=== PATIENT | female | born 1995 | race Caucasian/White ===

== ENCOUNTER → 2017-09-13 11:30 | Outpatient (CLI) | payer OTHER, SELFPAY ==
[2017-09-13 12:30] LABS: Hemoglobin A1c 7.7 % (4.2-6.3)
[2017-09-13 12:32] LABS: Microalbumin,Random Urine 5.7 mg/L (NO RANGE EST.)
[2017-09-13 12:49] LABS: ALB/GLOB Ratio 0.9 RATIO (0.9-2.4); AST(SGOT) 11 U/L (15-37); Alanine Aminotransfer ALT/SGPT 21 U/L (13-56); Albumin, Serum 3.3 g/dL (3.2-5.0); Alkaline Phosphatase 79 U/L (45-117); Anion Gap 6 (5-15); BUN 14 mg/dL (7-18); BUN/Creat Ratio 20.1 RATIO (10-20); Calcium,Total 8.4 mg/dL (8.5-10.1); Chloride 103 mmol/L (98-107); EST Glomerular Filtration Rate 110 mL/min (>60); Est Glom Filt Rate - Afr Amer 133 mL/min (>60); Globulin 3.7 g/dL (2.2-4.2); Glucose 218 mg/dL (74-106); Potassium 4.3 mmol/L (3.5-5.1); Sodium Level 135 mmol/L (136-145)
== END ==
PROVIDERS: Family Provider Internal Medicine; PCP Internal Medicine; Visit Provider Nurse Practitioner
DX: E10.9 Type 1 diabetes mellitus without complications (principal)
CPT/HCPCS: 36415; 80053; 82043; 82570; 83036

== ENCOUNTER → 2017-12-17 10:40 | Outpatient (CLI) | payer OTHER, SELFPAY ==
[2017-12-17 11:31] LABS: Hemoglobin A1c 7.7 % (4.2-6.3)
[2017-12-17 11:32] LABS: ALB/GLOB Ratio 0.9 RATIO (0.9-2.4); AST(SGOT) 12 U/L (15-37); Alanine Aminotransfer ALT/SGPT 19 U/L (13-56); Albumin, Serum 3.5 g/dL (3.2-5.0); Alkaline Phosphatase 100 U/L (45-117); Anion Gap 7 (5-15); BUN 9 mg/dL (7-18); BUN/Creat Ratio 12.3 RATIO (10-20); Calcium,Total 8.6 mg/dL (8.5-10.1); Chloride 104 mmol/L (98-107); Creatinine, Serum 0.73 mg/dL (0.55-1.02); EST Glomerular Filtration Rate 103 mL/min (>60); Est Glom Filt Rate - Afr Amer 125 mL/min (>60); Globulin 3.7 g/dL (2.2-4.2); Glucose 284 mg/dL (74-106); Potassium 4.2 mmol/L (3.5-5.1); Protein, Total 7.2 g/dL (6.4-8.2); Sodium Level 138 mmol/L (136-145)
== END ==
PROVIDERS: Family Provider Internal Medicine; PCP Internal Medicine; Visit Provider Nurse Practitioner
DX: E10.69 Type 1 diabetes mellitus with other specified complication (principal); E78.5 Hyperlipidemia, unspecified
CPT/HCPCS: 36415; 80053; 83036

== ENCOUNTER → 2018-03-14 09:37 | Outpatient (CLI) | payer OTHER, SELFPAY ==
[2018-03-14 10:37] LABS: Hemoglobin A1c 8.3 % (4.2-6.3)
[2018-03-14 10:43] LABS: Microalbumin,Random Urine < 5.0 mg/L (NO RANGE EST.)
[2018-03-14 10:47] LABS: ALB/GLOB Ratio 0.9 RATIO (0.9-2.4); AST(SGOT) 12 U/L (15-37); Alanine Aminotransfer ALT/SGPT 15 U/L (13-56); Albumin, Serum 3.4 g/dL (3.2-5.0); Alkaline Phosphatase 91 U/L (45-117); Anion Gap 8 (5-15); BUN 7 mg/dL (7-18); BUN/Creat Ratio 11.1 RATIO (10-20); Calcium,Total 8.4 mg/dL (8.5-10.1); Chloride 106 mmol/L (98-107); Cholesterol 167 mg/dL (200); Creatinine, Serum 0.63 mg/dL (0.55-1.02); EST Glomerular Filtration Rate 123 mL/min (>60); Est Glom Filt Rate - Afr Amer 148 mL/min (>60); Globulin 3.8 g/dL (2.2-4.2); Glucose 208 mg/dL (74-106); High Density Lipoprotein 45 mg/dL; Potassium 4.1 mmol/L (3.5-5.1); Protein, Total 7.2 g/dL (6.4-8.2); Sodium Level 137 mmol/L (136-145); Triglycerides 43 mg/dL; Very Low Density Lipoprotein 9 mg/dL (5-40)
== END ==
PROVIDERS: Family Provider Internal Medicine; PCP Internal Medicine; Visit Provider Nurse Practitioner
DX: E10.65 Type 1 diabetes mellitus with hyperglycemia (principal)
CPT/HCPCS: 36415; 80053; 80061; 82043; 82570; 83036

== ENCOUNTER → 2018-07-03 08:15 | Outpatient (CLI) | payer BC, SELFPAY ==
[2018-03-18 08:37] VITALS: BMI 41.5
[2018-07-03 09:42] LABS: Microalbumin,Random Urine < 5.0 mg/L (NO RANGE EST.)
[2018-07-03 10:08] LABS: Hemoglobin A1c 8.3 % (4.2-6.3)
[2018-07-03 10:59] LABS: AST(SGOT) 8 U/L (15-37); Alanine Aminotransfer ALT/SGPT 18 U/L (13-56); Albumin, Serum 3.7 g/dL (3.2-5.0); Alkaline Phosphatase 95 U/L (45-117); Anion Gap 11 (5-15); BUN 17 mg/dL (7-18); BUN/Creat Ratio 25.9 RATIO (10-20); Calcium,Total 8.4 mg/dL (8.5-10.1); Chloride 106 mmol/L (98-107); Cholesterol 173 mg/dL (200); Creatinine, Serum 0.66 mg/dL (0.55-1.02); EST Glomerular Filtration Rate 116 mL/min (>60); Est Glom Filt Rate - Afr Amer 141 mL/min (>60); Globulin 3.8 g/dL (2.2-4.2); Glucose 91 mg/dL (74-106); High Density Lipoprotein 52 mg/dL; Potassium 3.7 mmol/L (3.5-5.1); Protein, Total 7.5 g/dL (6.4-8.2); Sodium Level 138 mmol/L (136-145); Thyroid Stim Hormone (TSH) 2.52 uIU/mL (0.358-3.74); Triglycerides 41 mg/dL; Very Low Density Lipoprotein 8 mg/dL (5-40)
== END ==
PROVIDERS: Family Provider Internal Medicine; PCP Internal Medicine; Referring Provider Nurse Practitioner; Visit Provider Nurse Practitioner
DX: E10.69 Type 1 diabetes mellitus with other specified complication (principal); E78.5 Hyperlipidemia, unspecified
CPT/HCPCS: 36415; 80053; 80061; 82043; 83036; 84443

== ENCOUNTER → 2018-07-28 18:09 | Outpatient (CLI) | payer BC, SELFPAY ==
[2018-07-28 15:48] VITALS: BMI 41.5
[2018-07-31 13:30] LABS: HPV Reflexed? NOT INDICATED
== END ==
PROVIDERS: Family Provider Internal Medicine; PCP Internal Medicine; Referring Provider Nurse Practitioner Women's Health; Visit Provider Nurse Practitioner Women's Health
DX: Z12.4 Encounter for screening for malignant neoplasm of cervix (principal)
CPT/HCPCS: 87624; 88175; G0145

== ENCOUNTER → 2021-01-16 09:11 | Outpatient (CLI) | payer OTHER, SELFPAY ==
[2021-01-16 08:47] VITALS: BMI 43.7
[2021-01-16 12:48] LABS: Thyroid Stim Hormone (TSH) 1.34 uIU/mL (0.358-3.74)
[2021-01-17 16:52] LABS: Thyroid Peroxidase AB < 8 IU/mL (0-34)
== END ==
PROVIDERS: PCP Internal Medicine; Referring Provider Internal Medicine Endocrinology, Diabetes & Metabolism; Visit Provider Internal Medicine Endocrinology, Diabetes & Metabolism
DX: E04.9 Nontoxic goiter, unspecified (principal)
CPT/HCPCS: 36415; 84439; 84443; 86376

== ENCOUNTER → 2022-04-18 | Outpatient (CLI) | payer OTHER, SELFPAY ==
[2022-05-07 18:58] LABS: HPV Reflexed? NOT INDICATED
== END | disposition home or self-care (01) ==
PROVIDERS: PCP Internal Medicine; Visit Provider Nurse Practitioner Women's Health
DX: Z12.4 Encounter for screening for malignant neoplasm of cervix (principal)
CPT/HCPCS: 88175; G0145

== ENCOUNTER → 2022-06-06 | Outpatient (CLI) | payer OTHER, SELFPAY ==
--- NOTE | 2022-06-06 12:00 | EKG12_ITS ---
Test Reason : PRE-OP Blood Pressure : / mmHG Vent. Rate : 072 BPM Atrial Rate : 072 BPM P-R Int : 122 ms QRS Dur : 072 ms QT Int : 386 ms P-R-T Axes : 023 -12 033 degrees QTc Int : 422 ms Normal sinus rhythm with sinus arrhythmia Low voltage QRS Poor R wave progression Confirmed by LEOBARDO WARE, MARTA ([id number]), editor school photograph KATINA BETANCUR ([id number]) on 06/07/2022 11:22:05 AM Referred By: Korin Mckeon Confirmed By:MARTA BOOTH MD
== END | disposition home or self-care (01) ==
LOC: PSN 11:59
PROVIDERS: PCP Internal Medicine; Referring Provider Obstetrics & Gynecology; Visit Provider Obstetrics & Gynecology
DX: E11.9 Type 2 diabetes mellitus without complications (principal); E78.5 Hyperlipidemia, unspecified
CPT/HCPCS: 93005

== ENCOUNTER → 2022-08-03 | Outpatient (CLI) | payer OTHER, SELFPAY ==
[2022-08-03 14:56] LABS: Anion Gap 5 (5-15); BUN 13 mg/dL (7-18); BUN/Creat Ratio 14.6 RATIO (10-20); Calcium,Total 8.9 mg/dL (8.5-10.1); Chloride 113 mmol/L (98-107); Creatinine, Serum 0.89 mg/dL (0.55-1.02); EST Glomerular Filtration Rate 79 mL/min (>60); Est Glom Filt Rate - Afr Amer 96 mL/min (>60); Glucose 148 mg/dL (74-106); Sodium Level 141 mmol/L (136-145)
== END | disposition home or self-care (01) ==
LOC: LAB 14:01
PROVIDERS: PCP Internal Medicine; Referring Provider Obstetrics & Gynecology; Visit Provider Obstetrics & Gynecology
DX: E66.8 Other obesity (principal); E11.9 Type 2 diabetes mellitus without complications
CPT/HCPCS: 36415; 80048

== ENCOUNTER 2022-09-03 07:33 | Outpatient (CLI) | payer OTHER, SELFPAY ==
[2022-09-03 09:55] LABS: Microalbumin,Random Urine 9.6 mg/L (NO RANGE EST.); Microalbumin:Creatinine Ratio 3.6 mg/g CRE (<30 mg/g CRE)
[2022-09-03 10:02] LABS: Vitamin D,25 Hydroxy 33.6 ng/mL
[2022-09-03 10:17] LABS: ALB/GLOB Ratio 1.1 RATIO (0.9-2.4); AST(SGOT) 13 U/L (15-37); Alanine Aminotransfer ALT/SGPT 20 U/L (13-56); Alkaline Phosphatase 85 U/L (45-117); Anion Gap 10 (5-15); BUN 19 mg/dL (7-18); BUN/Creat Ratio 24.9 RATIO (10-20); Chloride 107 mmol/L (98-107); Cholesterol 140 mg/dL (200); Creatinine, Serum 0.76 mg/dL (0.55-1.02); EST Glomerular Filtration Rate 95 mL/min (>60); Est Glom Filt Rate - Afr Amer 115 mL/min (>60); Globulin 3.7 g/dL (2.2-4.2); Glucose 121 mg/dL (74-106); High Density Lipoprotein 39 mg/dL; Potassium 3.4 mmol/L (3.5-5.1); Protein, Total 7.7 g/dL (6.4-8.2); Sodium Level 138 mmol/L (136-145); Thyroid Stim Hormone (TSH) 2.96 uIU/mL (0.358-3.74); Triglycerides 57 mg/dL; Very Low Density Lipoprotein 11 mg/dL (5-40)
== END 2022-09-03 23:59 | disposition home or self-care (01) ==
LOC: LAB 07:35
PROVIDERS: PCP Internal Medicine; Referring Provider Internal Medicine Endocrinology, Diabetes & Metabolism; Visit Provider Internal Medicine Endocrinology, Diabetes & Metabolism
DX: E10.9 Type 1 diabetes mellitus without complications (principal); Z68.41 Body mass index [BMI] 40.0-44.9, adult; Z96.41 Presence of insulin pump (external) (internal); E78.2 Mixed hyperlipidemia; I10 Essential (primary) hypertension; E04.9 Nontoxic goiter, unspecified; E55.9 Vitamin D deficiency, unspecified; Z71.3 Dietary counseling and surveillance; E66.8 Other obesity
CPT/HCPCS: 36415; 80053; 80061; 82043; 82306; 82570; 84443; 97802

== ENCOUNTER 2022-09-03 08:03 | Outpatient (RCR) | payer OTHER, SELFPAY | END 2022-09-21 23:59 | LOC: NS 08:03 | PROVIDERS: PCP Internal Medicine; Visit Provider Obstetrics & Gynecology | DX: Z71.3 Dietary counseling and surveillance (principal); E66.8 Other obesity; E10.9 Type 1 diabetes mellitus without complications; Z68.41 Body mass index [BMI] 40.0-44.9, adult | CPT/HCPCS: 97802 ==

== ENCOUNTER → 2022-12-10 | Outpatient (CLI) | payer OTHER, SELFPAY ==
[2022-12-10 11:37] LABS: Anion Gap 6 (5-15); BUN 13 mg/dL (7-18); BUN/Creat Ratio 15.4 RATIO (10-20); Calcium,Total 9.2 mg/dL (8.5-10.1); Chloride 109 mmol/L (98-107); Creatinine, Serum 0.84 mg/dL (0.55-1.02); EST Glomerular Filtration Rate 84 mL/min (>60); Est Glom Filt Rate - Afr Amer 102 mL/min (>60); Glucose 191 mg/dL (74-106); Potassium 4.2 mmol/L (3.5-5.1); Sodium Level 138 mmol/L (136-145)
== END | disposition home or self-care (01) ==
LOC: PAVLAB 10:56
PROVIDERS: PCP Internal Medicine; Referring Provider Obstetrics & Gynecology; Visit Provider Obstetrics & Gynecology
DX: Z51.81 Encounter for therapeutic drug level monitoring (principal)
CPT/HCPCS: 36415; 80048

== ENCOUNTER → 2023-01-28 | Outpatient (CLI) | payer OTHER, SELFPAY ==
[2023-01-28 11:32] LABS: Anion Gap 7 (5-15); BUN 22 mg/dL (7-18); BUN/Creat Ratio 25.2 RATIO (10-20); Chloride 107 mmol/L (98-107); Creatinine, Serum 0.87 mg/dL (0.55-1.02); EST Glomerular Filtration Rate 81 mL/min (>60); Est Glom Filt Rate - Afr Amer 98 mL/min (>60); Glucose 97 mg/dL (74-106); Potassium 3.9 mmol/L (3.5-5.1); Sodium Level 138 mmol/L (136-145)
== END | disposition home or self-care (01) ==
LOC: PAVLAB 10:47
PROVIDERS: PCP Internal Medicine; Visit Provider Obstetrics & Gynecology
DX: Z51.81 Encounter for therapeutic drug level monitoring (principal)
CPT/HCPCS: 36415; 80048

== ENCOUNTER → 2023-12-30 | Outpatient (CLI) | payer OTHER, SELFPAY ==
[2023-12-30 08:13] LABS: Microalbumin,Random Urine 7.5 mg/L (NO RANGE EST.); Microalbumin:Creatinine Ratio 2.5 mg/g CRE (<30 mg/g CRE)
[2023-12-30 08:54] LABS: Vitamin D,25 Hydroxy 24.9 ng/mL
[2023-12-30 09:00] LABS: ALB/GLOB Ratio 1.2 RATIO (0.9-2.4); AST(SGOT) 18 U/L (15-37); Alanine Aminotransfer ALT/SGPT 16 U/L (13-56); Albumin, Serum 3.8 g/dL (3.2-5.0); Alkaline Phosphatase 83 U/L (45-117); Anion Gap 5 (5-15); BUN 12 mg/dL (7-18); BUN/Creat Ratio 14.3 RATIO (10-20); Calcium,Total 8.9 mg/dL (8.5-10.1); Chloride 110 mmol/L (98-107); Cholesterol 130 mg/dL (200); Creatinine, Serum 0.84 mg/dL (0.55-1.02); EST Glomerular Filtration Rate 84 mL/min (>60); Est Glom Filt Rate - Afr Amer 102 mL/min (>60); Globulin 3.3 g/dL (2.2-4.2); Glucose 131 mg/dL (74-106); High Density Lipoprotein 55 mg/dL; Potassium 3.8 mmol/L (3.5-5.1); Protein, Total 7.1 g/dL (6.4-8.2); Sodium Level 139 mmol/L (136-145); T4 Free Direct 1.08 ng/dL (0.76-1.46); Thyroid Stim Hormone (TSH) 2.61 uIU/mL (0.358-3.74); Triglycerides 37 mg/dL; Very Low Density Lipoprotein 7 mg/dL (5-40)
== END | disposition home or self-care (01) ==
LOC: LAB 07:06
PROVIDERS: PCP Internal Medicine; Referring Provider Internal Medicine Endocrinology, Diabetes & Metabolism; Visit Provider Internal Medicine Endocrinology, Diabetes & Metabolism
DX: E10.69 Type 1 diabetes mellitus with other specified complication (principal); I10 Essential (primary) hypertension; E04.9 Nontoxic goiter, unspecified; E78.5 Hyperlipidemia, unspecified; E55.9 Vitamin D deficiency, unspecified
CPT/HCPCS: 36415; 80053; 80061; 82043; 82306; 82570; 84439; 84443

== ENCOUNTER → 2024-04-27 | Outpatient (CLI) | payer OTHER, SELFPAY | END | disposition home or self-care (01) | LOC: LABSPEC 14:43 | PROVIDERS: PCP Internal Medicine; Referring Provider Nurse Practitioner Family; Visit Provider Nurse Practitioner Family | DX: N89.8 Other specified noninflammatory disorders of vagina (principal) | CPT/HCPCS: 87070; 87205 ==

== ENCOUNTER → 2025-01-13 | Outpatient (CLI) | payer OTHER, SELFPAY ==
[2025-01-13 11:48] LABS: Creatinine, Urine (random) 32.90 mg/dL (28.00-217.00); Microalbumin,Random Urine < 12.0 mg/L (<20 mg/L)
[2025-01-13 11:57] LABS: AST(SGOT) 15 U/L (<=31); Alanine Aminotransfer ALT/SGPT 12 U/L (<=34); Albumin, Serum 4.2 g/dL (3.5-5.0); Alkaline Phosphatase 94 U/L (35-104); Anion Gap 10 (5-15); BUN 10 mg/dL (4-19); BUN/Creat Ratio 14.7 RATIO (10-20); Calcium,Total 9.3 mg/dL (7.6-11.0); Carbon Dioxide 23.1 mmol/L (21.0-32.0); Chloride 106 mmol/L (98-108); Cholesterol 145 mg/dL (<=200); Globulin 2.7 g/dL (2.2-4.2); Glucose 108 mg/dL (70-99); Low Density Lipoprotein Calc. 73 mg/dL; Potassium 3.8 mmol/L (3.3-5.1); Triglycerides 34 mg/dL; Very Low Density Lipoprotein 7 mg/dL (5-40); cholesterol:hdl ratio screen 2.23
--- OUTSIDE RECORDS SUMMARY | 2025-01-13 19:14 | XMS RPT_ITS | CCD ---
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 [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 Resolved: 04-11-2016 04-11-2016 Chronic Other circulatory disease (1 source) Other specified symptoms and signs involving the circulatory and respiratory systems; Translations: [Diminished pulses in lower extremity] Onset: 10-06-2024 Episodic Other connective tissue disease (2 sources) Pain in right foot; Translations: [Pain in right foot] Onset: 04-14-2019 Episodic Other connective tissue disease (15 sources) Plantar fascial fibromatosis; Translations: [Plantar fascial fibromatosis] Onset: 04-24-2006 Resolved: 04-11-2016 04-11-2016 Episodic Other female genital disorders (1 source) Other specified noninflammatory disorders of vagina; Translations: [Other specified noninflammatory disorders of vagina] Onset: 05-15-2024 Episodic Other nutritional; endocrine; and metabolic disorders (20 sources) Body mass index 40+ - severely obese; Translations: [Morbid (severe) obesity due to excess calories] Resolved: 11-24-2024 10-03-2014 Chronic Other skin disorders (1 source) Corns and callosities; Translations: [Callus] Onset: 08-25-2024 Episodic Sprains and strains (15 sources) Sprain of foot; Translations: [Unspecified sprain of unspecified foot, initial encounter] Onset: 06-04-2006 Resolved: 04-11-2016 04-11-2016 Episodic Unclassified (5 sources) diabetes type without complications, detention isnulin use 04-06-2022 Results Test Name Value Interpretation Reference Range Facility [facility] 01-05-2025 CNCO Letter Text Normal [facility] CNOVon 01-05-2025 CNOV Office Visit (PODIWS) PAULY WHITEHEAD ([id number]) 1995 F Date Time Provider Department 01/05/25 9:45 AM ELIE CARVAJAL PODIWS During your visit today, we recorded the following information about you: Jocelin Sandy LPN 01/07/2025 7:56 AM Signed AMB ROOMING INTAKE FLOWSHEET DATA Patient presents with: Right Foot - Established Patient, Follow Up, Post Op 25 days s/p Derotational arthroplasty, right fifth toe with possible soft-tissue release if necessary ANGELY Knight Matthew 01/05/2025 10:12 AM Addendum Your incision is now healed. At this time, I am ok with you showering. After shower, dry foot thoroughly and apply small amount of moisturizing lotion on feet. Ok to transition into wider tennis shoe, ie hoka, ramirez or asics. You no longer need the steres strips. If the toe were to become dry and crack, you can always reinforce at that time. Will update paperwork to allow return to work on February 05 Call if any questions arise. Can follow-up in 2 weeks to see how you are doing FAVIOLA Parkinson Matthew 01/07/2025 7:56 AM Signed FOLLOW UP PODIATRIC OFFICE VISIT Chief Complaint: This 29 year old who presents for follow up:right fifth toe derotational arthroplasty Patient presents to clinic for follow-up right 5th toe derotational arthroplasty She is doing very well. Has been applying steres to the fifth toe. Feels great. Feels like she is progressing very well. PAIN EVALUATION No data found in the last 1 encounters. Hemoglobin A1C Date Value Ref Range Status 02/11/2023 6.4 (H) 4.3 - 5.6 % Final Comment: [place] [employer] guidelines indicate that patients with HgbA1c in the range 5.7-6.4% are at increased risk for development of diabetes, and intervention by lifestyle modification may be beneficial. HgbA1c greater or equal to 6.5% is considered diagnostic of diabetes. PCP: Fe Tolentino MD PAST MEDICAL HISTORY Diagnosis Date Morbid obesity with BMI of 40.0-44.9, adult (HCC) PMH - PAST MEDICAL HISTORY OF menarche at age 8 years Seizure disorder (HCC) none since childhood after treated with Tegretol for 2 years Type 1 diabetes mellitus 07/22/2005 Type (06/24/1999): dx type 1 diabetes. Varicella without mention of complication age 3 or 4 years Current Outpatient Medications Medication Sig topiramate (TOPAMAX) 50 mg tablet Take 50 mg by mouth once daily. Will be taking for 1 week while holding Qsymia per weight mgmt doctor, Dr. Mckeon calcium carbonate 600 mg-cholecalciferol 400 units (CALCIUM 600 + D) 600 mg-10 mcg (400 unit) tab Take 1 tablet by mouth two times a day. QSYMIA 15-92 mg 24 Hr Capsule TAKE ONE CAPSULE BY MOUTH DAILY DIRECTED insulin lispro (HUMALOG) 100 unit/mL injection See Instructions, 120 units daily in insulin pump, # 110 mL, 3 Refill(s), Pharmacy: [facility] atorvastatin (LIPITOR) 20 mg tablet Take 20 mg by mouth five times a week. Takes Saturday-Saturday only empagliflozin (JARDIANCE) 25 mg tablet Take 25 mg by mouth daily with breakfast. insulin needles, DISPOSABLE, (PEN NEEDLE) 31 gauge x 5/16" ndle Use as directed 3-4 times daily with injections glucagon, human recombinant, (GLUCAGON EMERGENCY KIT, HUMAN,) 1 mg injection Inject 1 mg subcutaneously as directed. Dx: E10.9, Uses daily insulin Cholecalciferol, Vitamin D3, 2,000 unit cap Take 2 tablets by mouth once daily. Insulin Sunburst, Disposable, (BD ULTRAFINE III MINI PEN) 31 x 3/16 " Ndle 1 Each three times daily. USE WITH INSULIN PENS syringe w-ndl, disp,insul,1ml(BD INSULIN SYRINGE ULT-FINE II 1 ML 31 X 5/16") Use as directed. No current facility-administere d medications for this visit. ALLERGIES Allergen Reactions [place] Hives PAST SURGICAL HISTORY Procedure Laterality Date PAST SURGICAL HISTORY OF Right 2019 right foot x 2 (fracture) TYMPANOSTOMY LOCAL/TOPICAL ANESTHESIA Physical Exam: OBJECTIVE: Constitutional: Pt is a well developed 29 year old female who is alert, oriented, cooperative and in no apparent distress. Eyes: Following during examination. No redness or drainage. Respiratory: RR normal and nonlabored. Even breathing. No evidence of distress. Psychology: Patient is engaged during conversation. Normal affect and mood. Does not appear depressed or anxious. NVSI unchanged from previous visit. Dermatological: Surgical incision to right 5th toe is now healed. No local signs of infection No recurrent callus Musculoskeletal/Orth opaedic: Patient has no pain to palpation of right foot Right 5th toe appears rectus No calf pain noted ASSESSMENT: (Z98.890) Post-operative state (primary encounter diagnosis) (M20.41) Hammertoe of right foot PLAN: Patient is s/p derotational arthroplasty of the right 5th toe. The toe incision is now healed. Can go without dressing I will have (more content not included)... Normal [facility] CNOVon 12-29-2024 CNOV Office Visit (PODIWS) PAULY WHITEHEAD ([id number]) 1995 F Date Time Provider Department 12/29/24 9:15 AM ELIE CARVAJAL PODIWS During your visit today, we recorded the following information about you: Jocelin Sandy LPN 12/30/2024 7:43 AM Signed AMB ROOMING INTAKE FLOWSHEET DATA Patient presents with: Right Foot - Established Patient, Follow Up, Pain, Post Op Patient presents to office for s/p Derotational arthroplasty, right fifth toe with possible soft-tissue release if necessary. No pain unless foot swells after over doing it. ANGELY Knight Matthew 12/29/2024 9:37 AM Signed You are 18 days post-op from derotational arthroplasty of the right 5th toe. Suture was removed today. Small degree of skin thickening was debrided. You have a very superficial, noninfected wound that was dressed with steres strips. Leave these on for one more week. Will plan to remove next week. If the steres should happen to fall off, you can reapply by applying skin prep to the periphery of the wound and apply two strips across the surgical incision. Keep this dry until healed, likely by next week Continue to keep guaze on the toe as currently doing Continue with post-op shoe for one more week Follow-up in 1 week just to confirm final healing. If you have any questions, please do not hesitate to contact me at [phone] FAVIOLA Parkinson Amanda, RN 12/30/2024 7:43 AM Signed Post op dressing applied to right foot. Gauze between 4th and 5th toes, 5th toe splinted with gauze and wrapped with gauze wrap. Secured with amara wrap. Post-op wound care reviewed with patient and printed copy provided. Patient verbalized understanding at this time. Dressing supplies provided to patient. Elie Carvajal 12/30/2024 7:43 AM Signed This 29 year old presents post op right 5th toe derotational arthroplasty Pain level: 0/10 Vomiting, fever, chills, shortness of breath: no Pain Control: none Weightbearing status: full weightbearing 6.4 - 02/11/2023 PAST MEDICAL HISTORY Diagnosis Date Morbid obesity with BMI of 40.0-44.9, adult (HCC) PMH - PAST MEDICAL HISTORY OF menarche at age 8 years Seizure disorder ([facility]) none since childhood after treated with Tegretol for 2 years Type 1 diabetes mellitus 07/22/2005 Type (06/24/1999): dx type 1 diabetes. Varicella without mention of complication age 3 or 4 years Current Outpatient Medications Medication Sig topiramate (TOPAMAX) 50 mg tablet Take 50 mg by mouth once daily. Will be taking for 1 week while holding Qsymia per weight mgmt doctor, Dr. Mckeon calcium carbonate 600 mg-cholecalciferol 400 units (CALCIUM 600 + D) 600 mg-10 mcg (400 unit) tab Take 1 tablet by mouth two times a day. QSYMIA 15-92 mg 24 Hr Capsule TAKE ONE CAPSULE BY MOUTH DAILY DIRECTED insulin lispro (HUMALOG) 100 unit/mL injection See Instructions, 120 units daily in insulin pump, # 110 mL, 3 Refill(s), Pharmacy: [facility] atorvastatin (LIPITOR) 20 mg tablet Take 20 mg by mouth five times a week. Takes Saturday-Saturday only empagliflozin (JARDIANCE) 25 mg tablet Take 25 mg by mouth daily with breakfast. insulin needles, DISPOSABLE, (PEN NEEDLE) 31 gauge x 5/16" ndle Use as directed 3-4 times daily with injections glucagon, human recombinant, (GLUCAGON EMERGENCY KIT, HUMAN,) 1 mg injection Inject 1 mg subcutaneously as directed. Dx: E10.9, Uses daily insulin Cholecalciferol, Vitamin D3, 2,000 unit cap Take 2 tablets by mouth once daily. Insulin Sunburst, Disposable, (BD ULTRAFINE III MINI PEN) 31 x 3/16 " Ndle 1 Each three times daily. USE WITH INSULIN PENS syringe w-ndl, disp,insul,1ml(BD INSULIN SYRINGE ULT-FINE II 1 ML 31 X 5/16") Use as directed. No current facility-administere d medications for this visit. ALLERGIES Allergen Reactions [place] Hives Objective: Incision site is well coapted with no evidence of dehiscence. Suture was removed. There is very superficial separation along medial incision. No deep dehiscence. No signs of infection. No drainage. No lymphadenopathy. No lymphangitis. No surrounding cellulitis. Right 5th toe appears rectus Patient has no pain to palpation of right calf. Negative Estrada's test. Assessment: (Z98.890) Post-operative state (primary encounter diagnosis) (M20.41) Hammertoe of right foot Plan: Patient is 18 days s/p derotational arthroplasty. She is doing well. I removed the suture today. There is very superficial separation along medial incision for which I will treat with steres strips for the next week. She can continue with dressing change every 2 days. Her toe is now rectus and she is very happy/satisfied with outcome I will have her follow-up in one week at which time I will discuss transition to shoe pending appearance of foot. Elie Carvajal DPM Allergies As of Date: 12/29/2024 (more content not included)... Normal [facility] CNOVon 12-22-2024 CNOV Office Visit (PODIWS) PAULY WHITEHEAD ([id number]) 1995 F Date Time Provider Department 12/22/24 8:15 AM ELIE CARVAJAL During your visit today, we recorded the following information about you: Phyllis Porras, CANDIDO 12/22/2024 8:54 AM Signed Patient presents with: Right Foot - Established Patient, Follow Up, Post Op, Pain Patient presents for 11 day post-op visit for derotational arthroplasty of right 5th toe. States that she has minimal pain, and that it is mostly related to swelling. Ambulating in a post op shoe. Has not needed to take Percocet since 12/14/24. Dressing clean dry and intact. Slight bruising still noted to the foot. MARTIR 12/15/24 Elie Carvajal 12/22/2024 8:54 AM Signed This 29 year old presents post op right 5th toe derotational arthroplasty Pain level: minimal. No longer taking pain medication Vomiting, fever, chills, shortness of breath: none Pain Control: patient is taking tylenol as needed Weightbearing status: weightbearing in post-op shoe 6.4 - 02/11/2023 PAST MEDICAL HISTORY Diagnosis Date Morbid obesity with BMI of 40.0-44.9, adult ([facility]) PMH - PAST MEDICAL HISTORY OF menarche at age 8 years Seizure disorder ([facility]) none since childhood after treated with Tegretol for 2 years Type 1 diabetes mellitus 07/22/2005 Type (06/24/1999): dx type 1 diabetes. Varicella without mention of complication age 3 or 4 years Current Outpatient Medications Medication Sig topiramate (TOPAMAX) 50 mg tablet Take 50 mg by mouth once daily. Will be taking for 1 week while holding Qsymia per weight mgmt doctor, Dr. Mckeon calcium carbonate 600 mg-cholecalciferol 400 units (CALCIUM 600 + D) 600 mg-10 mcg (400 unit) tab Take 1 tablet by mouth two times a day. QSYMIA 15-92 mg 24 Hr Capsule TAKE ONE CAPSULE BY MOUTH DAILY DIRECTED insulin lispro (HUMALOG) 100 unit/mL injection See Instructions, 120 units daily in insulin pump, # 110 mL, 3 Refill(s), Pharmacy: [facility] atorvastatin (LIPITOR) 20 mg tablet Take 20 mg by mouth five times a week. Takes Saturday-Saturday only empagliflozin (JARDIANCE) 25 mg tablet Take 25 mg by mouth daily with breakfast. insulin needles, DISPOSABLE, (PEN NEEDLE) 31 gauge x 5/16" ndle Use as directed 3-4 times daily with injections glucagon, human recombinant, (GLUCAGON EMERGENCY KIT, HUMAN,) 1 mg injection Inject 1 mg subcutaneously as directed. Dx: E10.9, Uses daily insulin Cholecalciferol, Vitamin D3, 2,000 unit cap Take 2 tablets by mouth once daily. Insulin Sunburst, Disposable, (BD ULTRAFINE III MINI PEN) 31 x 3/16 " Ndle 1 Each three times daily. USE WITH INSULIN PENS syringe w-ndl, disp,insul,1ml(BD INSULIN SYRINGE ULT-FINE II 1 ML 31 X 5/16") Use as directed. No current facility-administere d medications for this visit. ALLERGIES Allergen Reactions [place] Hives Objective: Incision site is well coapted with no evidence of dehiscence. Mild erythema and edema surrounding surgical site. No drainage. No lymphadenopathy. No lymphangitis. No surrounding cellulitis. Right 5th toe appears rectus. Slight hammertoe of 4th toe without pain Patient has no pain to palpation of right calf. Negative Estrada's test. Assessment: (Z98.890) Post-operative state (primary encounter diagnosis) (M20.41) Hammertoe of right foot Plan: Bandage removed and new dressing applied. Sutures: possible removal next week Patient is doing very well. I educated patient on proper bandaging of the toe to help splint the toe in a rectus position. The right 5th toe is now rectus. Patient is very pleased with outcome. She does have slight contracture of the 4th toe but she has no pain with this. Weightbearing status: ok to ambulate with surgical shoe as tolerated RTC 1 week FAVIOLA Parkinson Matthew 12/22/2024 8:28 AM Signed Your foot is looking very well. Your incision is healing nicely without signs of infection I would have you continue with bandage change every 2 days. Apply adaptic to the incision Apply guaze between the 4th and 5th toes and then cover the fifth toe. Do not pull out on the fifth toe. Splint the 5th toe so that the toe is straight. Keep the toe clean and dry. Do not get wet. If you need anything, please do not hesitate to contact me. FAVIOLA Parkinson Amanda, CANDIDO 12/22/2024 8:54 AM Signed Post op dressing applied to Right foot. Adaptic, nonadherent gauze and gauze wrap. Secured with amara wrap. Post-op wound care reviewed with patient and printed copy provided. Patient verbalized understanding at this time. Allergies As of Date: 12/22/2024 Noted Allergy Reaction STRAWBERRY 09/12/2010 4 - Hives Date Reviewed: 12/22/2024 Reviewed by: Phyllis Porras, RN - Fully Assessed Reason for Visit: Established Patient [175] Follow Up [171] Post Op [174] Pain [78] Primary Visit Diagnos (more content not included)... Normal [facility] CNOVon 12-15-2024 CNOV Office Visit (PODIWS) PAULY WHITEHEAD ([id number]) 1995 F Date Time Provider Department 12/15/24 8:15 AM ELIE CARVAJAL PODIWS During your visit today, we recorded the following information about you: Jocelin Sandy LPN 12/15/2024 8:43 AM Signed AMB ROOMING INTAKE FLOWSHEET DATA Pain Pain Level: 3 Pain Location: Incisional Description: Tenderness Duration Amount of Time: 4 Duration Units: Days Frequency: Intermittent Intervention/Comfort measure: Medication, Reposition, Relaxation Patient presents with: Right Foot - Established Patient, Follow Up, Post Op, Swelling, Pain Last took percocet on 12/14/2024 in afternoon. Patient states she took tylenol 1000 mg at 7 AM. Elie Carvajal 12/15/2024 8:35 AM Signed Your foot appears very well. Continue to keep dry. Do not get wet. Continue with post-op shoe. Ok to ambulate in surgical shoe. Due to anticipated moisture with perspiration, ok to change dressing every 2-3 days Apply betadine to the incision Apply adaptic to incision Followed by guaze splinting the toe straight Secure with amara wrap Can take aspirin twice daily If you have any questions, contact the office at [phone] or testrake at [phone] Elie Carvajal 12/15/2024 8:43 AM Signed DOS: 12/11/24 POD: 4 POV: 1 Surgical side: right This 29 year old presents post op derotational arthroplasty Pain level: 3/10 Vomiting, fever, chills, shortness of breath: no Pain Control: tylenol Weightbearing status: weightbearing in post-op shoe 6.4 - 02/11/2023 PAST MEDICAL HISTORY Diagnosis Date Morbid obesity with BMI of 40.0-44.9, adult (HCC) PMH - PAST MEDICAL HISTORY OF menarche at age 8 years Seizure disorder ([facility]) none since childhood after treated with Tegretol for 2 years Type 1 diabetes mellitus 07/22/2005 Type (06/24/1999): dx type 1 diabetes. Varicella without mention of complication age 3 or 4 years Current Outpatient Medications Medication Sig oxyCODONE-acetaminop hen (PERCOCET) 5-325 mg tablet Take 1 tablet by mouth every 6 hours as needed for up to 7 days. amoxicillin-clavulan ate potassium (AUGMENTIN) 875-125 mg per tablet Take 1 tablet by mouth two times a day for 7 days. topiramate (TOPAMAX) 50 mg tablet Take 50 mg by mouth once daily. Will be taking for 1 week while holding Qsymia per weight mgmt doctor, Dr. Mckeon calcium carbonate 600 mg-cholecalciferol 400 units (CALCIUM 600 + D) 600 mg-10 mcg (400 unit) tab Take 1 tablet by mouth two times a day. QSYMIA 15-92 mg 24 Hr Capsule TAKE ONE CAPSULE BY MOUTH DAILY DIRECTED insulin lispro (HUMALOG) 100 unit/mL injection See Instructions, 120 units daily in insulin pump, # 110 mL, 3 Refill(s), Pharmacy: [facility] atorvastatin (LIPITOR) 20 mg tablet Take 20 mg by mouth five times a week. Takes Saturday-Saturday only empagliflozin (JARDIANCE) 25 mg tablet Take 25 mg by mouth daily with breakfast. insulin needles, DISPOSABLE, (PEN NEEDLE) 31 gauge x 5/16" ndle Use as directed 3-4 times daily with injections glucagon, human recombinant, (GLUCAGON EMERGENCY KIT, HUMAN,) 1 mg injection Inject 1 mg subcutaneously as directed. Dx: E10.9, Uses daily insulin Cholecalciferol, Vitamin D3, 2,000 unit cap Take 2 tablets by mouth once daily. Insulin Sunburst, Disposable, (BD ULTRAFINE III MINI PEN) 31 x 3/16 " Ndle 1 Each three times daily. USE WITH INSULIN PENS syringe w-ndl, disp,insul,1ml(BD INSULIN SYRINGE ULT-FINE II 1 ML 31 X 5/16") Use as directed. No current facility-administere d medications for this visit. ALLERGIES Allergen Reactions [place] Hives Objective: Incision site is well coapted with no evidence of dehiscence. Mild erythema and edema surrounding surgical site. No drainage. No lymphadenopathy. No lymphangitis. No surrounding cellulitis. Right 5th toe is now rectus Patient has no pain to palpation of right calf. Negative Estrada's test. Assessment: (M20.41) Hammertoe of right foot (primary encounter diagnosis) (Z98.890) Post-operative state Plan: Bandage removed and new dressing applied. Patient toe is now rectus. Will have patient splint the toe with dressing. She was instructed on how to do this. She was provided dressing supplies and will change dressing every 2-3 days. Sutures: plan for removal in 2 weeks or around 21 days pending healing Weightbearing status: weightbearing in post-op shoe RTC 1 week FAVIOLA Parkinson Amelia, LPN 12/15/2024 8:53 AM Signed Per Pauly Moreno surgical site was dressed with iodine, adaptic. Non adherent, 4x4 woven gauze splinting toe with 4 in conforming gauze and amara wrap. instructed/educated in its application, wear, and care. All questions were answered, and patient was able to demonstrate competence with the necessary skills to utilize the above equipment. Jocelin Sandy LPN (more content not included)... Normal [facility] 12-11-2024 [facility] HNO ID: [id number] Author: CONSUELO VEGA RT(R) Service: Radiology Author Type: Technologist Type: Allied Health Filed: 12/11/2024 09:20 Note Text: Radiology Service Progress Note PATIENT NAME: Pauly Whitehead DATE OF SERVICE: December 11, 2024 TIME: 9:20 AM PATIENT IDENTITY VERIFICATION COMPLETED USING TWO (2) IDENTIFIERS: Name and Date of confirmed by patient verbally. FALL SCREENING: Has the patient had 2 falls in the last year or 1 fall with injury or currently using an Ambulatory Assistive Device (Walker, Cane, Wheelchair, Crutches, etc.)? Inpatient: Screened on floor PATIENT GENDER DATA: Assigned female at . status: : No status: NO. PATIENT RELEVANT IMPLANT DATA REVIEWED: Not Applicable PATIENT PRESENTS WITH AN IMPLANTABLE OR ATTACHED ASSOCIATE PROFESSOR OF LIBRARY SCIENCE: No RADIOLOGY DEPARTMENT: General X-ray: Exam(s) Completed: Lower Extremity X-Ray(s): Foot, Right PERIPHERAL IV DATA: Not applicable SIGNED BY: RT Terrell(R) December 11, 2024 9:20 AM [facility] POSTPROC EVALon 025 [facility] POSTPROC EVAL HNO ID: [id number] Author: SANCHO ROSALES DO Service: Anesthesiology Author Type: Anesthesiologist Type: Anesthesia Postprocedure Evaluation Filed: 12/11/2024 13:12 Note Text: POST ANESTHESIA EVALUATION NOTE : 1995 Procedure Summary Date: 12/11/24 Room / Location: ID OR02 / ID OR Anesthesia Start: 734 Anesthesia Stop: 851 Procedure: RECONSTRUCTION TOE HAMMER (Right: Foot) Diagnosis: Acquired hammer toe (Acquired hammer toe [M20.40]) Surgeons: Elie Carvajal Responsible Provider: Sancho Rosales DO Anesthesia Type: general ASA Status: 2 Anesthesia Type: general Airway Type: LMA Last Vitals Vitals Value Taken Time BP 94/50 12/11/24 0948 Temp 36 ?C (96.8 ?F) 12/11/24 0930 HR SpO2 82 12/11/24 0948 Resp 18 12/11/24 0948 SpO2 99 % 12/11/24 0948 Post Anesthesia Patient Status Patient Evaluation: PACU. PACU/ICU Patient Condition: stable. Anticipated Disposition: phase 2 then home. Neurological Status: aware and responsive. Pulmonary Status: breathing comfortably on room air Airway Control: returned to baseline unsupported. Cardiovascular Status: stable. Pain Management: clinically adequate - multimodal analgesia pain management approach Postoperative Hydration: acceptable. Intraoperative Events: no significant anesthesia events Post Operative Nausea/Vomiting Status: no significant post operative nausea or vomiting Recommendation: continue current plan of care and further care per PACU/ICU/floor team. Anesthesia Observations No Documentation SIGNATURE: Sancho Rosales DO PATIENT NAME: Pauly Whitehead DATE: December 11, 2024 TIME: 1:12 PM CSN: [id number] [facility] ANES PRE-OPon 12-11-2024 ANES PRE-OP HNO ID: [id number] Author: SANCHO ROSALES DO Service: Anesthesiology Author Type: Anesthesiologist Type: Anesthesia Preprocedure Evaluation Filed: 12/11/2024 07:00 Note Text: ANESTHESIOLOGY DAY OF SURGERY NOTE : 1995 Procedure Information Date/Time: 12/11/24729 Procedure: RECONSTRUCTION TOE HAMMER (Right) Location: ID OR02 / ID OR Surgeons: Elie Carvajal Estimated body mass index is 30.9 kg/m? as calculated from the following: Height as of 11/24/24: 162.6 cm (5' 4"). Weight as of 11/24/24: 81.6 kg (180 lb). Most recent hematocrit and potassium results: Hematocrit 50.2 02/11/2023 Potassium 3.9 02/11/2023 Relevant Problems ENDO (+) Type 1 diabetes mellitus without complication (HCC) NEURO-PSYCH (+) History of seizures I - PHYSICAL EVALUATION AIRWAY Patient intubated: No. Tracheostomy tube not present Mallampati: II. TM distance: >3 FB. Neck ROM: full ROM without neurological symptoms. Mouth opening: adequate. Short neck: no. Thick neck: no DENTAL Dental findings: teeth intact. II - ANESTHESIA PLAN ASA Score: 2 Anesthetic Plan: general Airway type: LMA NPO Status: adequate Beta Amilcar Monitoring Plan Monitoring plan: standard ASA. Post Procedure Analgesic Plan Postoperative analgesic plan: parenteral or oral opioids. Informed Consent Anesthetic risks, benefits, alternatives, personnel and consent discussed: yes. Patient / Responsible Green Party agrees to proceed: yes Patient / Surrogate agrees to blood products: Yes DNR status not reviewed with patient and/or family prior to surgery. Significant changes in the patient condition since the History and Physical, not otherwise documented in primary service progress note: no. Potential Anesthesia issues that may suggest increased risk of complications or contraindication to planned procedure: none. Discussed the possibility of lip / dental damage: yes Vitals Value Taken Time BP 131/80 12/11/24627 Pulse 77 12/11/24627 Resp 16 12/11/24627 Temp 36.6 ?C (97.9 ?F) 12/11/24627 SpO2 100 % 12/11/24627 Facility-Administere d Medications as of 12/11/2024 Medication Dose Route Frequency [COMPLETED] acetaminophen 1,000 mg tab(s) (TYLENOL) 1,000 mg ORAL Pre-Op Once [COMPLETED] promethazine 12.5 mg tab(s) (PHENERGAN) 12.5 mg ORAL Pre-Op Once lactated ringers iv infusion 30 mL/hr INTRAVENOUS CONTINUOUS Outpatient Medications as of 12/11/2024 Medication Sig topiramate (TOPAMAX) 50 mg tablet Take 50 mg by mouth once daily. Will be taking for 1 week while holding Qsymia per weight mgmt doctor, Dr. Mckeon atorvastatin (LIPITOR) 20 mg tablet Take 20 mg by mouth five times a week. Takes Saturday-Saturday only Cholecalciferol, Vitamin D3, 2,000 unit cap Take 2 tablets by mouth once daily. QSYMIA 15-92 mg 24 Hr Capsule TAKE ONE CAPSULE BY MOUTH DAILY DIRECTED insulin lispro (HUMALOG) 100 unit/mL injection See Instructions, 120 units daily in insulin pump, # 110 mL, 3 Refill(s), Pharmacy: [facility] empagliflozin (JARDIANCE) 25 mg tablet Take 25 mg by mouth daily with breakfast. insulin needles, DISPOSABLE, (PEN NEEDLE) 31 gauge x 5/16" ndle Use as directed 3-4 times daily with injections glucagon, human recombinant, (GLUCAGON EMERGENCY KIT, HUMAN,) 1 mg injection Inject 1 mg subcutaneously as directed. Dx: E10.9, Uses daily insulin Insulin Sunburst, Disposable, (BD ULTRAFINE III MINI PEN) 31 x 3/16 " Ndle 1 Each three times daily. USE WITH INSULIN PENS syringe w-ndl, disp,insul,1ml(BD INSULIN SYRINGE ULT-FINE II 1 ML 31 X 5/16") Use as directed. I have interviewed and examined the patient. I have reviewed the medical record and/or the pre-anesthesia evaluation, pertinent labs, and test results. This contains updated information obtained within 48 hours of Surgery/Procedure. SIGNATURE: Sancho Rosales DO PATIENT NAME: Pauly Whitehead DATE: December 11, 2024 TIME: 6:58 AM CSN: [id number] [facility] BRIEF OP NOTon 12-11-2024 BRIEF OP NOT HNO ID: [id number] Author: ELIE CARAVJAL, ? Service: Podiatry Author Type: Physician Type: Brief Op Note Filed: 12/11/2024 08:38 Note Text: BRIEF OPERATIVE / PROCEDURE NOTE LOG ID: [id number] SURGERY/PROCEDURE DATE: 12/11/2024 INCISION/PROCEDURE START TIME: 8:09 AM INCISION CLOSE/PROCEDURE END TIME: SURGEON(S)/PROCEDURA LIST(S) AND MASTER TECHNICIAN(S): Surgeons and Role: * Elie Carvajal - Kalia No Additional Staff SURGERY/PROCEDURE(S) : derotational arthroplasty, right 5th toe Callus debridement x 1 ANESTHESIA: General FINDINGS: callus to right 5th toe at pipj. Callus excised and toe is now rectus ESTIMATED BLOOD LOSS: 2 mls SPECIMENS: None COMPLICATIONS: None CLOSURE TECHNIQUE: Non-primary PRE-OP/PRE-PROCEDURE DIAGNOSIS: hammertoe with callus POST-OP/POST-PROCEDU RE DIAGNOSIS: Same as Preop Patient was accompanied to the next level of care by a licensed practitioner from the surgical team pending completion of this brief op note (or operative note) SIGNATURE: Elie Carvajal DPM PATIENT NAME: Pauly Whitehead DATE: December 11, 2024 TIME: 8:37 AM [facility] CNPNon 12-11-2024 [facility] Telephone (MEPRAD) PAULY WHITEHEAD ([id number]) 1995 F Date Time Provider Department 12/11/24 ELIE CARVAJAL During your visit today, we recorded the following information about you: Alena Elie 12/11/2024 10:54 PM Signed Called patient this evening. She is doing very well s/p derotational arthroplasty. She had all questions answered. She will continue with post-op shoe. She will follow-up with me later next week Elie Carvajal DPM Allergies As of Date: 12/11/2024 Noted Allergy Reaction STRAWBERRY 09/12/2010 4 - Hives Date Reviewed: 12/11/2024 Reviewed by: Ruby Marion, RN - Fully Assessed Reason for Visit: Patient Update [1234] Prescriptions as of 12/11/2024 - oxyCODONE-acetaminop hen (PERCOCET) 5-325 mg tablet Take 1 tablet by mouth every 6 hours as needed for up to 7 days. - amoxicillin-clavulan ate potassium (AUGMENTIN) 875-125 mg per tablet Take 1 tablet by mouth two times a day for 7 days. - topiramate (TOPAMAX) 50 mg tablet Take 50 mg by mouth once daily. Will be taking for 1 week while holding Qsymia per weight mgmt doctor, Dr. Mckeon - calcium carbonate 600 mg-cholecalciferol 400 units (CALCIUM 600 + D) 600 mg-10 mcg (400 unit) tab Take 1 tablet by mouth two times a day. - QSYMIA 15-92 mg 24 Hr Capsule TAKE ONE CAPSULE BY MOUTH DAILY DIRECTED - insulin lispro (HUMALOG) 100 unit/mL injection See Instructions, 120 units daily in insulin pump, # 110 mL, 3 Refill(s), Pharmacy: [facility] - atorvastatin (LIPITOR) 20 mg tablet Take 20 mg by mouth five times a week. Takes Saturday-Saturday only - empagliflozin (JARDIANCE) 25 mg tablet Take 25 mg by mouth daily with breakfast. - insulin needles, DISPOSABLE, (PEN NEEDLE) 31 gauge x 5/16" ndle Use as directed 3-4 times daily with injections - glucagon, human recombinant, (GLUCAGON EMERGENCY KIT, HUMAN,) 1 mg injection Inject 1 mg subcutaneously as directed. Dx: E10.9, Uses daily insulin - Cholecalciferol, Vitamin D3, 2,000 unit cap Take 2 tablets by mouth once daily. - Insulin Sunburst, Disposable, (BD ULTRAFINE III MINI PEN) 31 x 3/16 " Ndle 1 Each three times daily. USE WITH INSULIN PENS - syringe w-ndl, disp,insul,1ml(BD INSULIN SYRINGE ULT-FINE II 1 ML 31 X 5/16") Use as directed. 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] 12/20/2005 04/11/2016 FRACTURE CALCANEUS-CLOSE [S92.009A] 01/16/2006 Plantar fascial fibromatosis [M72.2] 04/24/2006 04/11/2016 Sprain of foot, unspecified site [S93.609A] 06/04/2006 04/11/2016 History of seizures [R56.9] 05/15/2010 Vitamin D deficiency [E55.9] 06/22/2013 Morbid obesity with BMI of 40.0-44.9, adult (HC* 11/24/2024 Other and unspecified hyperlipidemia [E78.5] 03/10/2015 07/23/2015 Tachycardia [R00.0] 04/04/2015 Type 1 diabetes mellitus without complication (*04/05/2015 Mixed hyperlipidemia [E78.2] 07/23/2015 Class 1 obesity with body mass index (BMI) of 3*11/24/2024 Encounter Status:Closed by ELIE CARVAJAL DPM on 12/11/24 [facility] HISTORY PHYSICALon HISTORY PHYSICAL HNO ID: [id number] Author: ELIE CARVAJAL, ? Service: Podiatry Author Type: Physician Type: H&P Filed: 12/11/2024 07:07 Note Text: UPDATED HISTORY AND PHYSICAL EXAMINATION SERVICE DATE: 12/11/2024 SERVICE TIME: 7:03 Participation of a fellow, resident, medical student, or advanced practice provider student in performing the sensitive examination was discussed with the patient or authorized senior customer service representative. The patient or authorized senior customer service representative has agreed to proceed with the sensitive examination. PHYSICAL EXAM MUST BE COMPLETED ON ADMISSION The History and Physical (completed in the past 30 days) has been reviewed and the patient has been examined. The contents accurately reflect the patient's condition with the following additions or revisions since the HANDP was completed. Examination indicates no changes. This HANDP can be found in the Electronic Medical Record dated 11/24/24. Physical exam: Cardiac: regular rate and rhythm Pulmonary: no wheezing. Lungs are clear and symmetrical. Vascular: DP and PT pulses are palpable to the right foot. CFT is less than 5 seconds. Skin temperature is warm to warm. Derm: there is callus to the lateral aspect of right fifth toe along the PIPJ. M/s: semi-rigid hammertoe, right 5th toe Assessment: hammertoe with callus Plan: I had long discussion with patient. She has persistent callus of right 5th toe. This is causing her pain. We discussed options not limited to filing the callus vs trying a flexor tenotomy vs doing derotational arthroplasty. I feel the deformity is more rigid that flexible and I am not sure if a tenotomy alone will eliminate her deformity. We discussed doing a tenotomy. She wishes to proceed with more definitive correction. I told her that attempting to derotate the toe will possible eliminate the rubbing on the 5th toe. I discussed possible need for tenotomy in addition to arthroplasty. Patient consents to proceed with derotational arthroplasty with possible soft-tissue release SIGNATURE: Elie Carvajal DPM PATIENT NAME: Pauly Whitehead DATE: December 11, 2024 TIME: 7:03 AM [facility] OPERATIVE NOon 12-11-2024 OPERATIVE NO HNO ID: [id number] Author: ELIE CARVAJAL, ? Service: Podiatry Author Type: Physician Type: Operative Report Filed: 12/11/2024 22:53 Note Text: OPERATIVE/PROCEDURE REPORT LOG ID: [id number] SURGERY/PROCEDURE DATE: 12/11/2024 INCISION/PROCEDURE START TIME: 8:09 AM INCISION CLOSE/PROCEDURE END TIME: 8:35 AM SURGEON(S)/PROCEDURA LIST(S) AND MASTER TECHNICIAN(S): Surgeons and Role: * Elie Carvajal Primary * Yousif Villegas DPM - Resident - Assisting No Additional Staff SURGERY/PROCEDURE(S) : Derotational arthroplasty, right 5th toe ANESTHESIA: General SURGERY/PROCEDURE DETAILS: Patient is a pleasant 29 year old female whose greatest complaint is a painful callus to the lateral aspect of her right 5th toe. This has been an issue for a long duration. She has managed the pain with the use of wider shoes, gel padding and periodic filing of the callus. Prior to her surgery, this has been helping to relieve some of her pain but she still suffers a considerable amount of discomfort. She has presented to my clinic and we discussed the callus of her right 5th toe. 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 Xrays with a bb joe the site of callus and her pain. We discussed continued conservative care by way of wider shoes, padding and periodic filing vs surgery. She is interested in surgery. We discussed the clinical presentation of her toe deformity. The toe is rigid. Because of the rigidity, correction of her fifth toe by way of tenotomy alone is not an option. I feel atenotomy alone will result in recurrent deformity or no correction at all. We therefore discussed a derotational arthroplasty. We discussed derotational arthroplasty with possible tenotomy if necessary. I discussed risks of the procedure not limited to infection, pain, swelling, bleeding, slow wound healing, wound dehiscence, floppy toe, recurrent deformity, overcorrection, undercorrection, recurrent callus, rsd, cardiac arrest, dvt, . Patient has been informed of the post-op recovery. All risks, benefits and alternatives have been discussed. Patient consents to proceed with derotational arthroplasty. The patient was transferred to the operating room and placed on the operating room table in the supine position. She was identified by name and procedure. She was placed under monitored anesthesia care and a local field block to the right fifth ray was performed. A well padded tourniquet was set for 250 mm of mercury. Antibiotic was administered prior to incision. Prior to the procedure, the callus which was located lateral to the 5th toe pipj was debrided with 15 blade. The right lower extremity was then prepped in the standard fashion. Attention was then directed to the right foot. The right lower extremity was elevated and exanguinated and the tourniquet was inflated. Using a c-arm, the incision with two converging lines was planned from proximal medial to distal lateral. Dissection was carried down through the subcutaneous tissue to the extensor tendon. A tentomy was performed of the extensor tendon exposing the head of the proximal phalanx. The head of the proximal phalanx was then resected transversely with a sagittal saw. At that time, inspection of the toe was performed and found to be rectus. At this time, it was determined that no additional tentomy of the flexor tendon was warranted. The incision was then irrigated with saline. The tourniquet was deflated and a hyperemic response was noted. The extensor tendon was then repaired with 3-0 vicryl. Subcutaneous closure was achieved with 4-0 vicryl. Skin was closed with 3-0 nylon. A post-op dressing was then applied consisting of 4x4 guaze, elizabeth and amara. Patient was transferred to the pacu in stable condition. She was discharged with surgical shoe. She will follow-up in 1 week. PRE-OP/PRE-PROCEDURE DIAGNOSIS: hammertoe, right 5th toe; painful callus, right 5th toe POST-OP/POST-PROCEDU RE DIAGNOSIS: Same as Preop ESTIMATED BLOOD LOSS: 3 mls SPECIMENS: None IMPLANTABLE DEVICES: NONE DRAINS: None COMPLICATIONS: None CLOSURE TECHNIQUE: Primary PARTICIPATION IN SURGERY/PROCEDURE: I/primary surgeon/proceduralis t performed the procedure with assistance. SIGNATURE: Elie Carvajal DPM PATIENT NAME: Pauly Whitehead DATE: December 11, 2024 TIME: 10:46 PM [facility] XR FLUOROSCOPYon 12-11-2024 XR FLUOROSCOPY * * *Final Report* * * DATE OF EXAM: Dec 11 2024 8:50AM MDR [id number] - XR FLUOROSCOPY / PROCEDURE REASON: right reconstruction toe hammer * * * * Physician Interpretation * * * * INDICATION: right reconstruction toe hammer TECHNIQUE: Fluoroscopy with 2 views of right toes COMPARISON: 08/25/2024 Fluoroscopic Radiation Summary: Plane A, Air Kerma: 5.6 mGy Dose Area Product (DAP): Fluoro time: 0:15 min:sec FINDINGS/ IMPRESSION: Images were obtained in the operating room. Interval resection of the distal aspect of the 5th proximal phalanx . Please refer to the performing LIP's report. It Business Process Architect: ADELIA Transcribe Date/Time: Dec 12 2024 7:05A Dictated by : FATIMAH WHALEY MD This examination was interpreted and the report reviewed and electronically signed by: FATIMAH WHALEY MD on Dec 12 2024 7:06AM EST [id number] [facility] XR FOOT 3V AP/LAT/OBL RTon 0 12-11-2024 XR FOOT 3V AP/LAT/OBL RT * * *Final Report* * * DATE OF EXAM: Dec 11 2024 9:15AM MDX [id number] - XR FOOT 3V AP/LAT/OBL RT / PROCEDURE REASON: Post-operative / post-procedure assessment * * * * Physician Interpretation * * * * EXAMINATION: XR FOOT 3V AP/LAT/OBL RT TECHNOLOGIST PROVIDED HISTORY: Post -op assessment of rt foot, big toe correction CLINICAL INFORMATION: 29 years old Female with Post-operative / post-procedure assessment Post-op hammertoe correction, right 5th toe TECHNIQUE: XR FOOT 3V AP/LAT/OBL RT Laterality: RIGHT Number of different views (projections): 3 COMPARISON: Radiographs 08/25/2024 RESULT: Interval postsurgical changes of 5th PIP joint resection arthroplasty. Unchanged postsurgical changes of plate and screw fixation of the proximal-mid 1st metatarsal. No acute fracture. Joint spaces are maintained. Small plantar calcaneal spur. IMPRESSION: Postsurgical changes. No acute osseous abnormality. It Business Process Architect: ADELIA Transcribe Date/Time: Dec 11 2024 9:45A Dictated by : CINTHIA ADAME DO This examination was interpreted and the report reviewed and electronically signed by: CINTHIA ADAME DO on Dec 11 2024 9:48AM EST [id number] [facility] HISTORY PHYSICALon HISTORY PHYSICAL HNO ID: [id number] Author: PHYLLIS MCNEILL PA-C Service: ? Author Type: Physician Manager Relationship Type: H&P Filed: 11/24/2024 14:02 Note Text: [facility] HISTORY AND PHYSICAL EXAMINATION SERVICE DATE: 11/24/2024 SERVICE TIME: 1:27 PM PRIMARY CARE PHYSICIAN: Fe Tolentino MD Assessment Patient has the following medical conditions which may affect casey-operative course: History of seizures Assessment: Remote hx as a child, related to hypoglycemia. Was on Tegretol x 2 years. No recurrence of seizures since childhood. Mixed hyperlipidemia Assessment: Managed on Lipitor 5 days/week per mosaic tiler. Type 1 diabetes mellitus without complication (HCC) Assessment: Managed with insulin pump and Jardiance. FBS 120-140s. A1C 7.0% 06/2024. Managed by endocrinology at [facility], Dr. Harvey Andrew. Per PACC guidelines, patient was instructed to continue at same basal rate DOS. Patient was also instructed to inform DOS team of insulin pump. Class 1 obesity with body mass index (BMI) of 30.0 to 30.9 in adult Assessment: Pt reports 80 lb weight loss in the past 3 years on Qsymia, managed by weight mgmt in [place], Dr. Mckeon. Pt reports that she discussed upcoming procedure with Dr. Mckeon, and has been instructed to hold Qsymia for 7 days prior to upcoming surgery, and to take topiramate 50 mg BID while holding Qysmia. Pt instructed to take topiramate DOS. ANESTHESIA FINDINGS: Intubation History: No history of difficult intubation. No abnormal airway history Significant Anesthesia Considerations: none Airway History: No history of difficult airway No abnormal airway history Mitchell Activity Status Index: METS: Walk indoors, such as around the house (1.75 METs) Do light work around the house, such as dusting or washing dishes (2.70 METs) Take care of self; that is eating, dressing, bathing, using the toilet (2.75 METs) Walk a block or two on level ground (2.75 METs) Do moderate work around the house, such as vacuuming, sweeping floors, or carrying in groceries (3.50 METs) Do yardwork, such as raking leaves, weeding, or pushing a power mower (4.50 METs) Climb a flight of stairs or walk up a hill (5.50 METs) DASI Score: 23.45 (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 Clinical Frailty Scale: 3. Well, with treated comorbid disease STOP-Bang Score: Denies snoring loudly Denies feeling tired, fatigued, or sleepy during the daytime Has not been observed to stop breathing or choking/gasping during sleep Denies having high blood pressure BMI less than or equal to 35 kg/m2 Patient 50 years old or younger Does not have a large neck Non-male patient STOP-Bang Score: 0 [id number] Score: Age: <65 Sex: female CHF history: No Hypertension history: No Stroke/TIA/thromboem bolism history: No Vascular disease history: No Diabetes history: Yes [id number] Score: 2 I - PHYSICAL EVALUATION AIRWAY Patient intubated: No. Tracheostomy tube not present Mallampati: II. TM distance: >3 FB. Neck ROM: full ROM without neurological symptoms. Mouth opening: adequate. Short neck: no. Thick neck: no Lip Bite Test: I Microretrognathia/Mi cronagthia/Recessed Chin: No DENTAL Dental findings: teeth intact. Additional comments: +Caps/crowns. II - ANESTHESIA PLAN Anesthetic Plan: other Anesthetic plan additional comments: *PACC/TCI - anesthesia choice. Beta Amilcar Monitoring Plan Post Procedure Analgesic Plan Prepared for Surgery: optimally prepared for surgery, pending day of surgery. DOS REVIEW - PATIENT WAS SEEN VIRTUALLY FOR PACC. CONSULTS: Patient does not require consults for optimization at this time Planned Anesthetic: other anesthesia choice The Following Tests/Procedures Have Been Initiated: No labs or ECG indicated per PACC protocol. This is a virtual visit using [employer] video visit. It required patient-provider interaction for the medical decision making as documented below. REASON FOR VISIT: Pauly Whitehead is a 29 year old female who is scheduled for Procedure(s): RECONSTRUCTION TOE HAMMER (Right) at the request of Dr. Elie Carvajal for consultation. My final recommendation will be communicated back to the requesting physician by way of shared medical record or letter. Subjective The patient has the following: ACTIVE PROBLEM LIST Closed Fracture of Calcaneus History of seizures Vitamin D Deficiency Tachycardia Type 1 Diabetes Mellitus Without Complication (Hcc) Mixed Hyperlipidemia Class 1 Obesity With Body Mass Index (Bmi) of 30.0 to 30.9 in Adult COVID-19 Immunization Status Current Care Gaps Covid-19 Vaccine () Overdue since 02/23/2024 02/14/2023 Postponed until 02/15/2024 by Lindsay Martinez LPN (Declined at this time) 03/24/2021 Imm Admin (more content not included)... Normal [facility] Bioprocessing Manufacturing Technician Office Visit Reporton 10-30-2024 Bioprocessing Manufacturing Technician Office Visit Report [facility] [address], [address] [place] [address] OFFICE VISIT Date of Service: 10/30/24 MR#: [id number] Acct: [id number] Name: PAULY WHITEHEAD Rep #: [id number] : 1995 Provider: Dr. Korin hill MD Age/Sex: 29/F Location: [facility] [place] Status: Signed Intake Vital Signs 07/31/24 15:07 10/30/24 08:54 10/30/24 08:55 Height 5 ft 4 in 5 ft 4 in 5 ft 4 in Weight: 179 lb 8 oz BMI 30.8 BP 123/83 H Pulse 87 Intake Visit Reasons: 3 M WM F/U Top Inventory Control Executive Required: No Is patient in pain?: No Feel stressed/tense/nervo us/anxious/difficult y sleeping: not at all Allergies strawberry Allergy (Severe, Verified 10/30/24 08:54) Food Allergy Medications ???Medication ???Instructions ???Recorded ???Confirmed ???Type insulin syringe-needle U-100 1 mL #100 ea 06/11/17 10/30/24 Rx 31 gauge x 5/16" (BD Insulin Syringe Ultra-Fine) lancets (Accu-Chek Fastclix Lancet #75 ea 06/09/21 10/30/24 Rx Drum) blood sugar diagnostic (Accu-Chek #400 ea 11/28/23 10/30/24 Rx Guide test strips) levonorgestrel (Mirena) 1 device intrauterine ONCE 4 10/30/24 History Humalog U-100 Insulin 100 unit/mL See Rx Instructions continuous 10/30/24 Rx subcutaneous solution (insulin subcutaneous infusion .COMPLEX #70 lispro) mL Jardiance 25 mg tablet 25 mg PO QAM #90 tabs 07/13/2403/18 Rx (empagliflozin) atorvastatin 20 mg tablet 20 mg PO DAILY #90 tabs 07/13/24 0 10/30/24 Rx phentermine 15 mg-topiramate ER 92 1 cap PO DAILY #30 caps 10/30/24 10/30/24 Rx mg capsule,ext.release2 4hr multphas (Qsymia) topiramate 50 mg tablet 50 mg PO BID #14 tabs 10/30/2403/18 Rx Last Menstrual Period: 04/09/22 Zika: Zika virus screening: Negative : No Have you fallen in the past year?: No PFSH PFSH Medical History Obesity Diabetes mellitus type 1 Essential hypertension Goiter Atypical squamous cells of undetermined significance (ASC-US) on cervical Pap smear Vitamin D deficiency Seizures Hypoglycemia Diabetes type 1, controlled Surgical History History of foot surgery S/P myringotomy with insertion of tube H/O wisdom tooth extraction Family History Father Hypertension High cholesterol Social History Smoking Status: Never smoker second hand exposure: No alcohol intake: never substance use type: does not use caffeine: No what type of physical activity do you participate in: none seatbelt use: always do you feel safe at home: Yes additional social history: [employer]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 having foot surgeyr coming up. no signfiicant behaviors that are hindering weight loss at this time, maintaining well. BS controlled. see weight management questionnaire answers for additional HPI details. all information was reviewed with the patient and confirmed, relevant counseling provided, and any changes to treatment plan made. Female Reproductive History Last Menstrual Period: 04/09/22 ROS Const Reports as per HPI, Denies difficulty sleeping, Denies excessive sweating, Denies fatigue (new onset severe) and Denies fever(s) Eyes Denies change in vision and Denies diplopia ENT Denies dizziness Card Denies chest pain, Denies dyspnea, Denies dyspnea on exertion, Denies palpitations and Denies rapid heart rate Resp Denies dyspnea and Denies dyspnea on exertion GI Reports as per HPI, Denies abdominal pain and Denies constipation Musc Denies numbness Neuro No confusion, No dizziness, No memory loss and No numbness Psych Denies confusion, Denies depression, Denies memory loss, Denies mood swings and Denies suicidal ideation Endo Denies excessive sweating, Denies fatigue (new onset severe), Denies palpitations and Reports other (denies symptoms of hypoglycemia) Exam Const General: cooperative, healthy appearing, comfortable and no acute distress Orientation: alert HENMT Head: normal to inspection and normocephalic Eyes General: appearance normal, both eyes and all related structures Neck Neck: normal visual inspection, no lymphadenopathy and trachea midline Thyroid: thyroid normal Resp Effort Inspection: normal respiratory effort (more content not included)... [facility] Office [facility] (PODIWS) PAULY WHITEHEAD ([id number]) 1995 F Date Time Provider Department 10/20/24 9:45 AM ELIE CARVAJAL PODIWS During your visit today, we recorded the following information about you: Lindsay Beckwith MA 10/21/2024 9:10 AM Signed Patient presents with: Right Foot - Follow Up: Discuss surgical options right 5th toe AMB ROOMING INTAKE FLOWSHEET DATA Pain Pain Level: 6 Pain Location: (Right 5th toe) Description: Aching, Pressure Duration Amount of Time: (Ongoing) Frequency: Intermittent (Occurs when toe is touched and wearing shoes) Intervention/Comfort measure: (None) Comments: Walking/putting any pressure on right 5th toe pain is 8-9/10, extremely painful to walk. Have pain relief when not walking and no shoes are on feet and nothing is touching toe shoes, socks, blankets, etc?.. Taking no med's for the pain. Elie Carvajal 10/21/2024 9:10 AM Signed Subjective Pauly is a 29-year-old female with a history of diabetes, presenting for right fifth toe pain. Right Fifth Toe Pain: - Pain at the site of a callus on the right fifth toe. - Pain severity rated as 5-6/10 at rest, increasing to 10/10 during work. 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 - Has been using padding and buffing the callus with minimal relief. - Interested in discussing surgical options for correction. Diabetes: - Last A1c in June was 6.9%. - Previous A1c in January 2023 was 6.4%. Musculoskeletal: (+) right fifth toe pain Skin: (-) changes in existing right second toe mole PAST MEDICAL HISTORY Diagnosis Date Morbid obesity with BMI of 40.0-44.9, adult (HCC) PMH - PAST MEDICAL HISTORY OF menarche at age 8 years Seizure disorder ([facility]) none since childhood after treated with Tegretol for 2 years Type 1 diabetes mellitus 07/22/2005 Type (06/24/1999): dx type 1 diabetes. Varicella without mention of complication age 3 or 4 years Current Outpatient Medications Medication Sig Dispense Refill QSYMIA 15-92 mg 24 Hr Capsule TAKE ONE CAPSULE BY MOUTH DAILY DIRECTED insulin lispro (HUMALOG) 100 unit/mL injection See Instructions, 120 units daily in insulin pump, # 110 mL, 3 Refill(s), Pharmacy: [facility] atorvastatin (LIPITOR) 20 mg tablet Take by mouth. empagliflozin (JARDIANCE) 25 mg tablet Take by mouth. insulin needles, DISPOSABLE, (PEN NEEDLE) 31 gauge x 5/16" ndle Use as directed 3-4 times daily with injections 300 Each 3 glucagon, human recombinant, (GLUCAGON EMERGENCY KIT, HUMAN,) 1 mg injection Inject 1 mg subcutaneously as directed. Dx: E10.9, Uses daily insulin 3 Each 3 Cholecalciferol, Vitamin D3, 2,000 unit cap Take 2 tablets by mouth once daily. Insulin Sunburst, Disposable, (BD ULTRAFINE III MINI PEN) 31 x 3/16 " Ndle 1 Each three times daily. USE WITH INSULIN PENS 100 Each 1 syringe w-ndl, disp,insul,1ml(BD INSULIN SYRINGE ULT-FINE II 1 ML 31 X 5/16") Use as directed. 100 4 No current facility-administere d medications for this visit. Family History Problem Relation Age of Onset Diabetes Other maternal and paternal side Heart Mother Hypertension Father Lipids Father Objective Last menstrual period 04/09/2022. - Cardiovascular: Dorsalis pedis and posterior tibial pulses palpable bilaterally; capillary refill time <5 seconds. - Skin: Warm to cool temperature; diminished hair growth on both feet; small callus on the lateral aspect of the interphalangeal joint of the right fifth toe; brown hypopigmented lesion on the right second toe measuring 4mm x 4mm; no other sores noted on bilateral feet. - Musculoskeletal: - Right Fifth Toe: Hammer toe deformity; semi-reducible with manual manipulation. - Left Fifth Toe: Hammer toe deformity; reducible with manual manipulation. - Neurological: Sensation intact to bilateral feet. Labs: (01/2023) HbA1c: 6.4 (06/2022) HbA1c: 6.9 Imaging: (08/2024) X-ray of the right foot: Medial deviation of the right fifth toe, consistent with hammer toe deformity. 1. Hammertoe of right foot (M20.41) 2. Callus (L84) - Examination reveals hammer toe deformity of the bilateral fifth toes, with the right fifth toe being semi-reducible and the left fifth toe being reducible. Small callus noted on the lateral aspect of the right fifth toe. - Discussed conservative management options including continued use of pumice stone and gel toe caps, but these will not resolve the underlying deformity. - Reviewed surgical options: tenotomy and derotational arthroplasty. - Tenotomy: Minimally invasive, performed under local anesthesia, involves cutting the tendon to straighten the toe. Quick recovery with stitches in place for about 2 weeks. However, due to the resistance noted in the right fifth toe, the success of this procedure is uncertain. - Derotational arthroplasty: Involves making an obliq (more content not included)... Normal [facility] PVR ANK PRESS DANNY VAS LABon 10-06-2024 PVR ANK PRESS DANNY VAS LAB Non-Invasive Vascular Laboratory [facility] Lower Extremity Arterial Physiology Study Bilateral/Complete Date of service/time: 10/06/2024 10:24:48 AM Name: MISS PAULY WHITEHEAD Date of : 1995 Age: 29 years Gender: F Clinical Indication Preoperative evaluation for derotational arthroplasty with possible tenotomy of flexor tendon. TECHNIQUE -------- An arterial physiological examination was performed, including measurement of blood pressures using continuous wave Doppler and recording of plethysmographic with or without Doppler waveforms at the below-mentioned limb segments. FINDINGS -------- RIGHT SIDE AT REST Right Doppler Waveforms Dorsalis pedis: Multiphasic. Post tibial: Multiphasic. Right Pressures Brachial: 116 mmHg Ankle dorsalis pedis: 132 mmHg NOAM: 1.11 Ankle posterior tibial: 135 mmHg NOAM: 1.13 Digit: 105 mmHg Right PVR Waveforms Ankle: Normal. Digit: Normal. LEFT SIDE AT REST Left Doppler Waveforms Dorsalis pedis: Multiphasic. Post tibial: Multiphasic. Left Pressures Brachial: 119 mmHg Ankle dorsalis pedis: 123 mmHg NOAM: 1.03 Ankle posterior tibial: 124 mmHg NOAM: 1.04 Digit: 122 mmHg Left PVR Waveforms Ankle: Normal. Digit: Normal. IMPRESSION RIGHT SIDE Resting right ankle brachial index: 1.13 Right toe brachial index: 0.88 Normal ankle brachial index at rest in the right leg. Right ankle: Normal at rest. LEFT SIDE Resting left ankle brachial index: 1.04 Left toe brachial index: 1.03 Normal ankle brachial index at rest in the left leg. Left ankle: Normal at rest. Technologist: Summer Alonzo T Ordering physician: ELIE CARVAJAL Interpreting physician: FAUD Granda DO Final CC [employer] [facility] : [id number] See Link below for Image Normal [facility] [place] 09-02-2024 CNPN Telephone ([employer]) PAULY WHITEHEAD ([id number]) 1995 F Date Time Provider Department 09/02/24 ELIE CARVAJAL During your visit today, we recorded the following information about you: Phyllis Porras RN 09/02/2024 2:41 PM Signed Elie Carvajal to Jocelin Sandy LPN 08/31/24 12:38 PM We can get her scheduled sometime in September or October Patient name: Pauly Whitehead* Type of surgery:derotational arthroplasty right 5th toe Diagnosis: hammertoe* Length of surgery:60* min Manager Relationship needed: none* Anesthesia: mac Special equipment: mini c arm Special instructions: * Phyllis Porras RN 09/02/2024 2:41 PM Signed Awaiting PVR results scheduled 10/06/24. Jocelin Sandy LPN 10/09/2024 4:20 PM Signed Patient scheduled on 10/20/2024 to discuss results and surgical planning. Jocelin Sandy LPN 11/04/2024 11:36 AM Signed Patient elected to schedule surgery for Derotational arthroplasty, right fifth toe with possible soft-tissue release if necessary on 12/11/2024 at [facility]. Patient will pecan picker surgical packet including electronic and paper copy of surgical confirmation letter, hibiclens and instruction on how to use product as well as instruction on where to go at [facility]. All post op were scheduled .Patient verbalized understanding of all instructions. Surgery scheduled in [facility]. Jocelin Sandy LPN Allergies As of Date: 09/02/2024 Noted Allergy Reaction STRAWBERRY 09/12/2010 4 - Hives Date Reviewed: 08/25/2024 Reviewed by: Phyllis Porras RN - Fully Assessed Reason for Visit: Schedule Surgery [1330] Prescriptions as of 11/04/2024 - QSYMIA 15-92 mg 24 Hr Capsule TAKE ONE CAPSULE BY MOUTH DAILY DIRECTED - insulin lispro (HUMALOG) 100 unit/mL injection See Instructions, 120 units daily in insulin pump, # 110 mL, 3 Refill(s), Pharmacy: [facility] - atorvastatin (LIPITOR) 20 mg tablet Take by mouth. - empagliflozin (JARDIANCE) 25 mg tablet Take by mouth. - insulin needles, DISPOSABLE, (PEN NEEDLE) 31 gauge x 5/16" ndle Use as directed 3-4 times daily with injections - glucagon, human recombinant, (GLUCAGON EMERGENCY KIT, HUMAN,) 1 mg injection Inject 1 mg subcutaneously as directed. Dx: E10.9, Uses daily insulin - Cholecalciferol, Vitamin D3, 2,000 unit cap Take 2 tablets by mouth once daily. - Insulin Sunburst, Disposable, (BD ULTRAFINE III MINI PEN) 31 x 3/16 " Ndle 1 Each three times daily. USE WITH INSULIN PENS - syringe w-ndl, disp,insul,1ml(BD INSULIN SYRINGE ULT-FINE II 1 ML 31 X 5/16") Use as directed. 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] 12/20/2005 04/11/2016 FRACTURE CALCANEUS-CLOSE [S92.009A] 01/16/2006 Plantar fascial fibromatosis [M72.2] 04/24/2006 04/11/2016 Sprain of foot, unspecified site [S93.609A] 06/04/2006 04/11/2016 History of seizures [R56.9] 05/15/2010 Vitamin D deficiency [E55.9] 06/22/2013 Morbid obesity with BMI of 40.0-44.9, adult (HC* Other and unspecified hyperlipidemia [E78.5] 03/10/2015 07/23/2015 Tachycardia [R00.0] 04/04/2015 Type 1 diabetes mellitus without complication (*04/05/2015 Mixed hyperlipidemia [E78.2] 07/23/2015 Encounter Status:Closed by JOCELIN SANDY on 10/20/24 [facility] CNOVon 08-25-2024 CNOV Office Visit (PODIWS) PAULY WHITEHEAD ([id number]) 1995 F Date Time Provider Department 08/25/24 10:45 AM ELIE CARVAJAL During your visit today, we recorded the following information about you: Phyllis Porras, RN 08/25/2024 11:53 AM Signed Patient presents with: Right Foot - Established Patient, Follow Up, Pain, Callous AMB ROOMING INTAKE FLOWSHEET DATA Risk Screening Do you have concerns about personal safety or safety in the home?: No Pain Pain Level: 6 Pain Location: Toe Description: Aching, Pressure, Sharp, Sore, Stabbing, Tenderness Duration Amount of Time: 12 Duration Units: Months Frequency: Continuous Intervention/Comfort measure: Other: See comment Comments: Pain is continuous. Have some relief when completely barefoot and nothing is touching toe. Socks and any type of shoe makes it worse despite the toe cushion. Patient presents for follow up callus and hammer toe to right foot, 5th toe. Has tried the gel toe cap, but states that it did not help much. Area is tender to touch. MARTIR 08/20/23 Elie Carvajal 08/25/2024 11:53 AM Signed FOLLOW UP PODIATRIC OFFICE VISIT Chief Complaint: This 29 year old who presents for follow up:painful callus of right 5th toe Patient presents to clinic for follow-up right 5th toe Complains of callus to right 5th toe Has tried padding but the padding she uses tends to fall off She treats the callus with periodic debridement PAIN EVALUATION 08/24/2024 1854 Pain Level: 6 Pain Location: Toe Description: Aching;Pressure;Romulo p;Sore;Stabbing;Tend erness Duration Amount of Time: 12 Duration Units: Months Frequency: Continuous Intervention/Comfort measure: Other: See comment Comments: Pain is continuous. Have some relief when completely barefoot and nothing is touching toe. Socks and any type of shoe makes it worse despite the toe cushion. Hemoglobin A1C Date Value Ref Range Status 02/11/2023 6.4 (H) 4.3 - 5.6 % Final Comment: [place] [employer] guidelines indicate that patients with HgbA1c in the range 5.7-6.4% are at increased risk for development of diabetes, and intervention by lifestyle modification may be beneficial. HgbA1c greater or equal to 6.5% is considered diagnostic of diabetes. PCP: Fe Tolentino MD PAST MEDICAL HISTORY Diagnosis Date Morbid obesity with BMI of 40.0-44.9, adult (HCC) PMH - PAST MEDICAL HISTORY OF menarche at age 8 years Seizure disorder (HCC) none since childhood after treated with Tegretol for 2 years Type 1 diabetes mellitus 07/22/2005 Type (06/24/1999): dx type 1 diabetes. Varicella without mention of complication age 3 or 4 years Current Outpatient Medications Medication Sig QSYMIA 15-92 mg 24 Hr Capsule TAKE ONE CAPSULE BY MOUTH DAILY DIRECTED insulin lispro (HUMALOG) 100 unit/mL injection See Instructions, 120 units daily in insulin pump, # 110 mL, 3 Refill(s), Pharmacy: [facility] atorvastatin (LIPITOR) 20 mg tablet Take by mouth. empagliflozin (JARDIANCE) 25 mg tablet Take by mouth. insulin needles, DISPOSABLE, (PEN NEEDLE) 31 gauge x 5/16" ndle Use as directed 3-4 times daily with injections glucagon, human recombinant, (GLUCAGON EMERGENCY KIT, HUMAN,) 1 mg injection Inject 1 mg subcutaneously as directed. Dx: E10.9, Uses daily insulin Cholecalciferol, Vitamin D3, 2,000 unit cap Take 2 tablets by mouth once daily. Insulin Sunburst, Disposable, (BD ULTRAFINE III MINI PEN) 31 x 3/16 " Ndle 1 Each three times daily. USE WITH INSULIN PENS syringe w-ndl, disp,insul,1ml(BD INSULIN SYRINGE ULT-FINE II 1 ML 31 X 5/16") Use as directed. No current facility-administere d medications for this visit. ALLERGIES Allergen Reactions [place] Hives PAST SURGICAL HISTORY Procedure Laterality Date TYMPANOSTOMY LOCAL/TOPICAL ANESTHESIA Physical Exam: OBJECTIVE: Constitutional: Pt is a well developed 29 year old female who is alert, oriented, cooperative and in no apparent distress. Eyes: Following during examination. No redness or drainage. Respiratory: RR normal and nonlabored. Even breathing. No evidence of distress. Psychology: Patient is engaged during conversation. Normal affect and mood. Does not appear depressed or anxious. Vascular: DP and Pt pulses are faintly palpable b/l. Cft is less than 5 seconds. Dermatological: Nails 1-5 b/l are normal. Webspaces clean and dry 1-4 b/l. Skin appears well hydrated and supple. good color, texture, turgor. No open lesions present. No callosities present. Musculoskeletal/Orth opaedic: Patient has pain to palpation of right 5th toe at site of callus The right 5th toe presents with rigid adductovarus deformity ASSESSMENT: (L84) Callus (primary encounter diagnosis) (M20.41) Hammertoe of right foot (R09.89) Diminished pulses in lower extremity PLAN: Discussed callus of right 5 (more content not included)... Normal [facility] XR FOOT 3V AP/LAT/OBL RTon 0 08-25-2024 XR FOOT 3V AP/LAT/OBL RT * * *Final Report* * * DATE OF EXAM: Aug 25 2024 11:35AM [id number] [id number] - XR FOOT 3V AP/LAT/OBL RT / PROCEDURE REASON: multiple diagnoses * * * * Physician Interpretation * * * * EXAMINATION: XR FOOT 3V AP/LAT/OBL RT PATIENT/TECHNOLOGIST PROVIDED HISTORY: corn on right 5th toe for a year marked with a bb no inj CLINICAL INFORMATION: 29 years old Female with Callus. Hammertoe of right foot. Bb kaur site of callus on 5th toe TECHNIQUE: XR FOOT 3V AP/LAT/OBL RT Laterality: RIGHT Number of different views (projections): 3 COMPARISON: Radiographs 08/20/2023 RESULT: No acute fracture. Unchanged appearance of plate and screw fixation of the proximal-mid 1st metatarsal. Joint spaces are maintained. Small plantar calcaneal spur. IMPRESSION: No acute osseous abnormality. It Business Process Architect: ADELIA Transcribe Date/Time: Aug 28 2024 9:01A Dictated by : CINTHIA ADAME DO This examination was interpreted and the report reviewed and electronically signed by: CINTHIA ADAME DO on Aug 28 2024 9:04AM EST [id number] Normal [facility] [employer] Manufacturing Technician Office Visit Reporton 07-31-2024 Bioprocessing Manufacturing Technician Office Visit Report [address], [address] [place] [address] OFFICE VISIT Date of Service: 07/31/24 MR#: [id number] Acct: [id number] Name: PAULY WHITEHEAD Rep #: [id number] : 1995 Provider: Dr. Korin hill MD Age/Sex: 29/F Location: [facility] Status: Signed Intake Vital Signs 04/27/24 08:15 07/13/24 09:38 07/31/24 15:06 07/31/24 15:07 Height 5 ft 4 in 5 ft 4 in 5 ft 4 in 5 ft 4 in Weight: 179 lb 184 lb 2 oz 178 lb 6 oz BMI 30.7 31.6 30.6 BP 131/85 H 117/83 H 114/72 Blood Pressure Location Rt brachial Position Sitting Pulse 81 83 Pulse Source Monitor Pulse Oximetry (%) 98 Oxygen Delivery Method room air Intake Visit Reasons: 3 M FU Top Inventory Control Executive Required: No Is patient in pain?: No Feel stressed/tense/nervo us/anxious/difficult y sleeping: not at all Allergies strawberry Allergy (Severe, Verified 07/31/24 15:06) Food Allergy Medications ???Medication ???Instructions ???Recorded ???Confirmed ???Type insulin syringe-needle U-100 1 mL #100 ea 06/11/17 07/31/24 Rx 31 gauge x 5/16" (BD Insulin Syringe Ultra-Fine) lancets (Accu-Chek Fastclix Lancet #75 ea 06/09/21 07/31/24 Rx Drum) blood sugar diagnostic (Accu-Chek #400 ea 11/28/23 07/31/24 Rx Guide test strips) levonorgestrel (Mirena) 1 device intrauterine ONCE 4 07/31/24 History Humalog U-100 Insulin 100 unit/mL See Rx Instructions continuous 07/31/24 Rx subcutaneous solution (insulin subcutaneous infusion .COMPLEX #70 lispro) mL Jardiance 25 mg tablet 25 mg PO QAM #90 tabs 07/13/2401/15 Rx (empagliflozin) atorvastatin 20 mg tablet 20 mg PO DAILY #90 tabs 07/13/24 0 07/31/24 Rx phentermine 15 mg-topiramate ER 92 1 cap PO DAILY #30 caps 07/31/24 07/31/24 Rx mg capsule,ext.release2 4hr multphas (Qsymia) Last Menstrual Period: 04/09/22 Zika: Zika virus screening: Negative : No Have you fallen in the past year?: No PFSH PFSH Medical History Obesity Diabetes mellitus type 1 Essential hypertension Goiter Atypical squamous cells of undetermined significance (ASC-US) on cervical Pap smear Vitamin D deficiency Seizures Hypoglycemia Diabetes type 1, controlled Surgical History History of foot surgery S/P myringotomy with insertion of tube H/O wisdom tooth extraction Family History Father Hypertension High cholesterol Social History Smoking Status: Never smoker second hand exposure: No alcohol intake: never substance use type: does not use caffeine: No what type of physical activity do you participate in: none seatbelt use: always do you feel safe at home: Yes 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 not having more than 2 days a week to exercise due to work scheudle. see weight management questionnaire answers for additional HPI details. all information was reviewed with the patient and confirmed, relevant counseling provided, and any changes to treatment plan martin barraza Female Reproductive History Last Menstrual Period: 04/09/22 ROS Const Reports as per HPI, Denies difficulty sleeping, Denies excessive sweating, Denies fatigue (new onset severe) and Denies fever(s) Eyes Denies change in vision and Denies diplopia ENT Denies dizziness Card Denies chest pain, Denies dyspnea, Denies dyspnea on exertion, Denies palpitations and Denies rapid heart rate Resp Denies dyspnea and Denies dyspnea on exertion GI Reports as per HPI, Denies abdominal pain and Denies constipation Musc Denies numbness Neuro No confusion, No dizziness, No memory loss and No numbness Psych Denies confusion, Denies depression, Denies memory loss, Denies mood swings and Denies suicidal ideation Endo Denies excessive sweating, Denies fatigue (new onset severe), Denies palpitations and Reports other (denies symptoms of hypoglycemia) Exam Const General: cooperative, healthy appearing, comfortable and no acute distress Orientation: alert [facility] Head: normal to inspection and normocephalic Eyes General: appearance normal, both eyes and all related structures Neck Neck: normal visual inspection, no lymphadenopathy and trachea midline Thyroi (more content not included)... Normal [facility] Endocrinology Visit Reporton 07-13-2024 Endocrinology Visit Report [facility] [address] [place] [address] OFFICE VISIT Date of Service: 07/13/24 MR#: [id number] Acct: [id number] Name: PAULY WHITEHEAD Rep #: [id number] : 1995 Provider: Vania Scott Age/Sex: 29/F Location: [facility] Status: Signed Intake Vital Signs 01/13/24 13:38 04/27/24 08:15 07/13/24 09:38 Height 5 ft 4 in 5 ft 4 in 5 ft 4 in Weight: 179 lb 184 lb 2 oz BMI 30.7 31.6 BP 131/85 H 117/83 H Blood Pressure Location Rt brachial Position Sitting Pulse 81 Pulse Source Monitor Pulse Oximetry (%) 98 Oxygen Delivery Method room air Intake Visit Reasons: 6 M FU Chief Complaint: Diabetes Is patient in pain?: No Allergies strawberry Allergy (Severe, Verified 07/13/24 09:41) Food Allergy Medications ???Medication ???Instructions ???Recorded ???Confirmed ???Type insulin syringe-needle U-100 1 mL #100 ea 06/11/17 07/13/24 Rx 31 gauge x 5/16" (BD Insulin Syringe Ultra-Fine) lancets (Accu-Chek Fastclix Lancet #75 ea 06/09/21 07/13/24 Rx Drum) blood sugar diagnostic (Accu-Chek #400 ea 11/28/23 07/13/24 Rx Guide test strips) levonorgestrel (Mirena) 1 device intrauterine ONCE 04/27/24 07/13/24 History phentermine 15 mg-topiramate ER 92 1 cap PO DAILY #30 caps 06/03/24 07/13/24 Rx mg capsule,ext.release2 4hr multphas (Qsymia) Humalog U-100 Insulin 100 unit/mL See Rx Instructions continuous 07/13/24 07/13/24 Rx subcutaneous solution (insulin subcutaneous infusion .COMPLEX #70 lispro) mL Jardiance 25 mg tablet 25 mg PO QAM #90 tabs 07/13/24 07/13/24 Rx (empagliflozin) atorvastatin 20 mg tablet 20 mg PO DAILY #90 tabs 07/13/24 07/13/24 Rx PFSH Medical History Obesity Diabetes mellitus type 1 Essential hypertension Goiter Atypical squamous cells of undetermined significance (ASC-US) on cervical Pap smear Vitamin D deficiency Seizures Hypoglycemia Diabetes type 1, controlled Surgical History History of foot surgery S/P myringotomy with insertion of tube H/O wisdom tooth extraction Family History Father Hypertension High cholesterol Social History Smoking Status: Never smoker second hand exposure: No alcohol intake: never substance use type: does not use caffeine: No what type of physical activity do you participate in: none seatbelt use: always do you feel safe at home: Yes 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 A1C is 7% She is using Medtronic 780G with Guardian CGM and auto mode. Upload shows good control. She is on statin and Jardiance for renal protection. She is feeling well. ROS Const Constitutional: No fatigue, weight change or change in appetite Eyes Eyes: No change in vision ENT ENT: No dizziness/vertigo or difficulty swallowing Cardio Cardiology: No chest pain at rest, chest pain with exertion, shortness of breath or palpitations Musc Musculoskeletal: No abnormal gait, joint pain, numbness or tingling Neuro Neurology: No abnormal gait, memory loss, numbness or tingling Psych Psychiatric: No change in appetite, No memory loss and No Thoughts of harming yourself/Others Resp Respiratory: No cough, chest congestion or shortness of breath Gastro GI: No abdominal pain, constipation, diarrhea or difficulty swallowing Genitourinary-Female : No burning urination Skin Skin: No itchy eyes or wounds Endo Endocrine: No fatigue or weight change Aller/Imm Allergy/Immunologic: No itchy eyes Exam Const General: cooperative, healthy appearing, comfortable, no acute distress, well developed and not cushingoid Nutritional Appearance: well nourished Orientation: alert, awake and oriented x3 HENMT Head: normal to inspection Ears: hearing grossly normal bilaterally Nose: external nose normal Mouth: oral mucosae normal Eyes General: appearance normal, both eyes and all related structures Alignment and Position: alignment normal Periorbital: periorbital findings normal Eyelids: eyelids normal Conjunctivae: conjunctivae normal Neck Neck: normal visual inspection Neck mass: No Thyroid: diffusely enlarged and firm Lymphatic: no lymphadenopathy noted Chest Chest palpation inspection: normal inspection of the chest Resp Effort Inspection: normal respiratory effort, able to speak in complete sentences, symmetric chest movement, no audible wheezes and no cough Cardio Rate: regular rate Rhythm: regu (more content not included)... Normal [facility] Genital Culture Comprehensiv brittnee 05-01-2024 VAC Reason for Exam: vaginal discharge Normal vaginal osmar isolated. No yeast, Gardnerella, Neisseria or beta-hemolytic Streptococcus isolated. Normal [facility] Comment on above: Performed By: #### M , M100.3200 #### [facility] [address] [place], [place], [address] Gram Stainon 04-27-2024 Reason for Exam: vaginal discharge Gram Stain Rare Epithelial cells 4+ Gram positive rods No Gram negative diplococci Score = 0 Interpretation: 0-3 Normal, 4-6 Intermediate, 7-10 Positive BV Normal [facility] Comment on above: Performed By: #### M 100.1999, M100.3200 #### [facility] [address] [place], [address] Bioprocessing Manufacturing Technician Office Visit Reporton 04-27-2024 Bioprocessing Manufacturing Technician Office Visit Report [facility] [address], [address] [place] [address] OFFICE VISIT Date of Service: 04/27/24 MR#: [id number] Acct: [id number] Name: PAULY WHITEHEAD Rep #: [id number] : 1995 Provider: MURPHY Carter Age/Sex: 29/F Location: [facility] [place] Status: Signed Intake Vital Signs 04/22/23 08:13 06/10/23 08:30 11/04/23 09:13 02/04/24 15:14 04/27/24 08:15 Height 5 ft 4 in 5 ft 4 in 5 ft 4 in 5 ft 4 in 5 ft 4 in Weight: 179 lb BMI 30.7 BP 131/85 H Intake 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) Chief Complaint: annual Top Inventory Control Executive Required: No Is patient in pain?: No Allergies strawberry Allergy (Severe, Verified 04/27/24 13:09) Food Allergy Medications ???Medication ???Instructions ???Recorded ???Confirmed ???Type insulin syringe-needle U-100 1 mL #100 ea 06/11/17 04/27/24 Rx 31 gauge x 5/16" (BD Insulin Syringe Ultra-Fine) lancets (Accu-Chek Fastclix Lancet #75 ea 06/09/21 04/27/24 Rx Drum) Humalog U-100 Insulin 100 unit/mL See Rx Instructions continuous 11/28/23 04/27/24 Rx subcutaneous solution (insulin subcutaneous infusion .COMPLEX #70 lispro) mL atorvastatin 20 mg tablet 20 mg PO DAILY #90 tabs 11/28/23 04/27/24 Rx blood sugar diagnostic (Accu-Chek #400 ea 11/28/23 04/27/24 Rx Guide test strips) Jardiance 25 mg tablet 25 mg PO QAM #90 tabs 03/30/24 04/27/24 Rx (empagliflozin) levonorgestrel 21 mcg/24 hr (up to 1 device intrauterine ONCE 04/27/24 04/27/24 History 8 years) 52 mg intrauterine device (Mirena) phentermine 15 mg-topiramate ER 92 1 cap PO DAILY #30 caps 04/27/24 04/27/24 Rx mg capsule,ext.release2 4hr multphas (Qsymia) Is last menstrual period known: No Post menopausal: No Patient : No : No Control Method: mirena PFSH Medical History Obesity Diabetes mellitus type 1 Essential hypertension Goiter Atypical squamous cells of undetermined significance (ASC-US) on cervical Pap smear Vitamin D deficiency Seizures Hypoglycemia Diabetes type 1, controlled Surgical History History of foot surgery S/P myringotomy with insertion of tube H/O wisdom tooth extraction Family History Father Hypertension High cholesterol Social History Smoking Status: Never smoker second hand exposure: No alcohol intake: never substance use type: does not use caffeine: No what type of physical activity do you participate in: none seatbelt use: always do you feel safe at home: Yes 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 No issues or concerns today. She is also in our weight management program; in need of refill. She reports she has been taking this compliantly; down additional 2 pounds. She reports no side effects. Last PAP: 2021; normal cytology History of abnormal PAP: no Last mammogram: None History of abnormal mammogram: n/a Colon cancer screening: age 43 Other preventative health care screenings: Fe Tolentino; PCP. Female Reproductive History Associated symptoms: mirena; spotting. Questions: metorrhagia: No, sexually active: No, dyspareunia: No and PCB: No ROS Const Constitutional: Denies chills, fatigue, fever(s), headache(s) or weight loss Eyes Eyes: Denies change in vision ENT ENT: Denies dizziness Cardio Card: Denies chest pain, palpitations or rapid heart rate Resp Resp: Denies cough GI GI: Denies abdominal pain, constipation or nausea Details: denies any episodes of pancreatitis : Denies difficulty voiding, dysuria, hematuria, pelvic pain, prolapse symptoms, urinary incontinence, vaginal discharge, vaginal dryness, vaginal odor or vaginal pruritus Details: denies kidney stones Musc Musc: Denies numbness Skin Skin/Breast: Denies alopecia or rash Neuro Neuro: Denies dizziness or numbness Psych Psych: Denies anxiety or depression Endo Endo: Denies cold intolerance, excessive sweating or heat intolerance Exam Const General: cooperative, healthy appearing, comfortable, no acute distress, well groomed and well hydrated Nutritional Appearance: well nourished Orientation: alert, awake and oriented x3 HENMT Head: normal to inspection and normocephalic Ears: hearing grossly normal bilaterally and external ears normal Nose: external nose no (more content not included)... [facility] VENTURAPAULY HERNANDEZ Jimy ([id number]) 1995 F Date Time Provider Department 02/17/24 10:20 AM MAKI RAMIREZ INTMWS During your visit today, we recorded the following information about you: Pulse Respiration Blood pressure Weight 83/minute 16/minute 115/77 81.6 kg Height 1.6 m Maki Ramirez APRN.POWER HAIR CLIPPER 02/17/2024 11:43 AM Signed SUBJECTIVE: Depression Screening Never done Anxiety Screening Never done Urine Albumin:Creatinine Ratio due on 04/04/2022 Covid-19 Vaccine() due on 02/22/2023 Cervical Cancer Screening due on 07/28/2023 HbA1C due on 08/14/2023 Annual PCP Team Chronic Disease Visit due on 02/15/2024 LDL Cholesterol due on 02/12/2024 Diabetic Foot Exam due on 02/15/2024 Dilated Retinal Exam due on 03/11/2024 ALEYDA Shannon Ventura is a 29 year old female. Her PMH is significant for ACTIVE PROBLEM LIST Closed Fracture of Calcaneus History of seizures Vitamin D Deficiency Morbid Obesity With Bmi of 40.0-44.9, Adult (Hcc) Tachycardia Type 1 Diabetes Mellitus Without Complication (Hcc) Mixed Hyperlipidemia Notes she is in her usual state of health. 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 Notes adhering to DM diet. She has lost 80lbs on Qysmia. Exercising 5-6 days per week for 30 minutes. Followed by mosaic tiler: Harvey Andrew. Last visit 05/2023. Hemoglobin A1c was 6.5% at her last visit. She is using the Medtronic insulin pump. She has nonproliferative retinopathy hypertension and hyperlipidemia. Taking atorvastatin Jardiance and insulin. Notes diabetes currently well controlled. DIABETES MELLITUS: Without report of excessive thirst or increased frequency of urination, chest pain or dyspnea , numbness, tingling or pain in extremities, new or unusual visual symptoms, low sugar/hypoglycemic reactions, weight loss/gain, lightheadedness/dizz iness, and bowel changes/loose stools. Patient's last HgA1C was Hemoglobin A1C (%) Date Value 02/11/2023 6.4 02/14/2022 7.7 04/04/2021 7.4 04/04/2020 7.3 ) Hyperlipidemia. Ms. Whitehead reports doing well on current therapy. Per Dr Andrew. Her most recent lipid panels are: Cholesterol, Total (mg/dL) Date Value 02/11/2023 150 02/14/2022 196 04/04/2021 201 04/04/2020 153 HDL Cholesterol (mg/dL) Date Value 02/11/2023 42 02/14/2022 54 04/04/2021 53 04/04/2020 44 LDL Cholesterol (mg/dL) Date Value 02/11/2023 100 02/14/2022 133 04/04/2021 131 04/04/2020 98 Triglyceride (mg/dL) Date Value 02/11/2023 40 02/14/2022 45 04/04/2021 87 04/04/2020 53 Last 14 Encounter BP Readings: Date: BP: 02/17/2024 115/77 08/03/2023 102/74 02/14/2023 120/60 04/17/2022 138/85 02/15/2022 126/72 03/23/2020 122/84 11/12/2018 126/84 07/18/2017 100/78 04/03/2017 120/80 10/01/2016 126/68 04/11/2016 126/80 03/14/2016 102/80 2016 112/66 01/11/2016 104/78 Notes remote history of seizures as a child, no recent Notes follows with [facility] for [facility] exam, has an upcoming appointment. Sees Chapis Nash SQL DATABASE DEVELOPER provider, appointment 07/2023. Qsymia per Dr Mckeon. She has lost 80 lbs on this medication. Review of Systems Constitutional: Negative. Respiratory: Negative. Cardiovascular: Negative. Endocrine: Negative. Objective BP 115/77 Pulse 83 Resp 16 Ht 160 cm (5' 3") Wt 81.6 kg (179 lb 14.3 oz) LMP 04/09/2022 (Approximate) BMI 31.87 kg/m? Physical Exam Vitals and nursing note reviewed. Constitutional: Appearance: Normal appearance. HENT: Head: Normocephalic and atraumatic. Eyes: Conjunctiva/sclera: Conjunctivae normal. Neck: Thyroid: No thyromegaly. Vascular: Normal carotid pulses. No JVD. Cardiovascular: Rate and Rhythm: Normal rate and regular rhythm. Pulses: Carotid pulses are 2+ on the right side and 2+ on the left side. Radial pulses are 2+ on the right side and 2+ on the left side. Heart sounds: Normal heart sounds. Pulmonary: Effort: Pulmonary effort is normal. Abdominal: General: Bowel sounds are normal. Palpations: Abdomen is soft. Feet: Right foot: Skin integrity: Skin integrity normal. Left foot: Skin integrity: Skin integrity normal. Skin: General: Skin is warm and dry. Neurological: General: No focal deficit present. Mental Status: She is alert. Psychiatric: Mood and Affect: Mood normal. Behavior: Behavior normal. ALLERGIES Allergen Reactions [place] Hives Medications QSYMIA 15-92 mg 24 Hr Capsule TAKE ONE CAPSULE BY MOUTH DAILY DIRECTED insulin lispro (HUMALOG) 100 unit/mL injection See Instructions, 120 units daily in insulin pump, # 110 mL, 3 Refill(s), Pharmacy: [facility] atorvastatin (LIPITOR) 20 mg tablet Take by mouth. empagliflozin (JARDIANCE) 25 mg tablet Take by mouth. insulin needles, DISPOSABLE, (PEN NEEDLE) 31 gauge (more content not included)... Normal [facility] GLUon 02-13-2024 Glucose [Mass/Vol] 191 mg/dL High 70-110 [facility] ([place]) Comment on above: Performed By: #### L IPID, GLU #### [address] [address] LIPIDon 02-13-2024 Cholesterol [Mass/Vol] 145 mg/dL Normal 50-199 Counts include 234 beds at the [facility] ([place]) Comment on above: Result Comment: Chol esterol Reference Interval: Less than 200 Desirable 200-239 Borderline high risk 240 and above High risk Performed By: #### L IPID, GLU #### [address] [address] Cholesterol in HDL [Mass/Vol] 52 mg/dL Normal 40-59 [facility] ([place]) Comment on above: Performed By: #### L IPID, GLU #### [address] [address] Cholesterol in LDL [Mass/Vol] 84 mg/dL Normal 0-129 [facility] ([place]) Comment on above: Performed By: #### L IPID, GLU #### [address] [address] Triglyceride [Mass/Vol] 47 mg/dL Normal 3-149 [facility] ([place]) Comment on above: Performed By: #### L IPID, GLU #### [address] [address] Bioprocessing Manufacturing Technician Office Visit Reporton 02-04-2024 Bioprocessing Manufacturing Technician Office Visit Report [facility] [address], [address] [place] [address] OFFICE VISIT Date of Service: 02/04/24 MR#: [id number] Acct: [id number] Name: PAULY WHITEHEAD Rep #: [id number] : 1995 Provider: Dr. Korin hill MD Age/Sex: 29/F Location: [facility] [place] Status: Signed Intake Vital Signs 11/04/23 09:13 01/13/24 13:38 02/04/24 15:14 Height 5 ft 4 in 5 ft 4 in 5 ft 4 in Weight: 189 lb 178 lb 181 lb BMI 32.4 30.5 31.0 BP 119/83 H 119/83 H 106/69 Blood Pressure Location Lt brachial Lt brachial Position Sitting Sitting Respiration 16 Pulse 88 78 84 Pulse Source Monitor Monitor Pulse Oximetry (%) 99 Oxygen Delivery Method room air Intake Visit Reasons: 3 M FU Top Inventory Control Executive Required: No Is patient in pain?: No Allergies strawberry Allergy (Severe, Verified 02/04/24 15:22) Food Allergy Medications ???Medication ???Instructions ???Recorded ???Confirmed ???Type insulin syringe-needle U-100 1 mL #100 ea 06/11/17 02/04/24 Rx 31 gauge x 5/16" (BD Insulin Syringe Ultra-Fine) lancets (Accu-Chek Fastclix Lancet #75 ea 06/09/21 02/04/24 Rx Drum) Humalog U-100 Insulin 100 unit/mL See Rx Instructions continuous 11/28/23 02/04/24 Rx subcutaneous solution (insulin subcutaneous infusion .COMPLEX #70 lispro) mL Jardiance 25 mg tablet 25 mg PO QAM #90 tabs 11/28/23 02/04/24 Rx (empagliflozin) atorvastatin 20 mg tablet 20 mg PO DAILY #90 tabs 11/28/23 02/04/24 Rx blood sugar diagnostic (Accu-Chek #400 ea 11/28/23 02/04/24 Rx Guide test strips) phentermine 15 mg-topiramate ER 92 1 cap PO DAILY #30 caps 02/04/24 02/04/24 Rx mg capsule,ext.release2 4hr multphas (Qsymia) Last Menstrual Period: 04/09/22 PFSH PFSH Medical History Obesity Diabetes mellitus type 1 Essential hypertension Goiter Atypical squamous cells of undetermined significance (ASC-US) on cervical Pap smear Vitamin D deficiency Seizures Hypoglycemia Diabetes type 1, controlled Surgical History History of foot surgery S/P myringotomy with insertion of tube H/O wisdom tooth extraction Family History Father Hypertension High cholesterol Social History Smoking Status: Never smoker second hand exposure: No alcohol intake: never substance use type: does not use caffeine: No what type of physical activity do you participate in: none seatbelt use: always do you feel safe at home: Yes additional social history: [facility]- History 0 Elective abortions Hx Para Spontaneous abortions Hx # Term Pregnancies Ectopic pregnancies Hx # Pregnancies Multiple births # of living children HPI 3 M FU Details: PAULY WHITEHEAD is a 29 year old Female presenting for a weight management follow up. She has been doing well and continuing to lose significant weight. She has lost about 30% of her body weight. She has dropped her BMI 14 points. see weight management questionnaire answers for additional HPI details. all information was reviewed with the patient and confirmed, relevant counseling provided, and any changes to treatment plan made. Female Reproductive History Last Menstrual Period: 04/09/22 ROS Const Reports as per HPI, Denies difficulty sleeping, Denies excessive sweating, Denies fatigue (new onset severe) and Denies fever(s) Eyes Denies change in vision and Denies diplopia ENT Denies dizziness Card Denies chest pain, Denies dyspnea, Denies dyspnea on exertion, Denies palpitations and Denies rapid heart rate Resp Denies dyspnea and Denies dyspnea on exertion GI Reports as per HPI, Denies abdominal pain and Denies constipation Musc Denies numbness Neuro No confusion, No dizziness, No memory loss and No numbness Psych Denies confusion, Denies depression, Denies memory loss, Denies mood swings and Denies suicidal ideation Endo Denies excessive sweating, Denies fatigue (new onset severe), Denies palpitations and Reports other (denies symptoms of hypoglycemia) Exam Const General: cooperative, healthy appearing, comfortable and no acute distress Orientation: alert HENCO Head: normal to inspection and normocephalic Eyes General: appearance normal, both eyes and all related structures Neck Neck: normal visual inspection, no lymphadenopathy and trachea midline Thyroid: thyroid normal Resp Effort Inspection: normal respiratory effort Auscultation: clear to auscultation bilaterally Cardio Rate: regular rate Rhythm: regular rhythm Heart Sounds: S1 normal and S2 normal Mus (more content not included)... Normal [facility] Endocrinology Visit Reporton 01-13-2024 Endocrinology Visit Report [facility] [address] [place] [address] OFFICE VISIT Date of Service: 01/13/24 MR#: [id number] Acct: [id number] Name: PAULY WHITEHEAD Rep #: [id number] : 1995 Provider: MURPHY crain Age/Sex: 29/F Location: [facility] [place] Status: Signed Intake Vital Signs 06/10/23 08:30 11/04/23 09:13 01/13/24 13:38 Height 5 ft 4 in 5 ft 4 in 5 ft 4 in Weight: 178 lb BMI 30.5 BP 119/83 H Blood Pressure Location Lt brachial Position Sitting Pulse 78 Pulse Source Monitor Pulse Oximetry (%) 99 Oxygen Delivery Method room air Intake Visit Reasons: 6 M FU Chief Complaint: Diabetes Top Inventory Control Executive Required: No Accompanied by: Self Is patient in pain?: No Allergies strawberry Allergy (Severe, Verified 01/13/24 13:47) Food Allergy Medications ???Medication ???Instructions ???Recorded ???Confirmed ???Type insulin syringe-needle U-100 1 mL #100 ea 06/11/17 01/13/24 Rx 31 gauge x 5/16" (BD Insulin Syringe Ultra-Fine) lancets (Accu-Chek Fastclix Lancet #75 ea 06/09/21 01/13/24 Rx Drum) phentermine 15 mg-topiramate ER 92 1 cap PO DAILY #30 caps 11/04/23 01/13/24 Rx mg capsule,ext.release2 4hr multphas (Qsymia) Humalog U-100 Insulin 100 unit/mL See Rx Instructions continuous 11/28/23 01/13/24 Rx subcutaneous solution (insulin subcutaneous infusion .COMPLEX #70 lispro) mL Jardiance 25 mg tablet 25 mg PO QAM #90 tabs 11/28/23 01/13/24 Rx (empagliflozin) atorvastatin 20 mg tablet 20 mg PO DAILY #90 tabs 11/28/23 01/13/24 Rx blood sugar diagnostic (Accu-Chek #400 ea 11/28/23 01/13/24 Rx Guide test strips) [facility] Medical History Obesity Diabetes mellitus type 1 Essential hypertension Goiter Atypical squamous cells of undetermined significance (ASC-US) on cervical Pap smear Vitamin D deficiency Seizures Hypoglycemia Diabetes type 1, controlled Surgical History History of foot surgery S/P myringotomy with insertion of tube H/O wisdom tooth extraction Family History Father Hypertension High cholesterol Social History Smoking Status: Never smoker second hand exposure: No alcohol intake: never substance use type: does not use caffeine: No what type of physical activity do you participate in: none seatbelt use: always do you feel safe at home: Yes additional social history: [facility]-RN HPI HPI Chief Complaint: Diabetes Details: PAULY WHITEHEAD, is a 29 F who presents to the office today for evaluation and management of diabetes. A1C today is 6.5%, improved from 06/10/23 at 7.1%. She has lost 25 lbs since that time. She is currently working with Dr. Mckeon on weight loss. She is taking Qsymia and doing well. She is using Medtronic 780g with Guardian 4 CGM- she is pleased with system. Insulin pump downloaded and reviewed- she is forgetting to bolus on occasion, she is having post meal elevations. She admits that she does not bolus for some lower carb foods. Denies any significant episodes of hypoglycemia that have required assistance from others. Currently taking Jardiance 25 mg once daily and atorvastatin 20 mg once daily. 12/30/23 total cholesterol 130 LDL 68 negative microalbuminuria Denies any acute concerns. Exam Const General: cooperative, healthy appearing, comfortable and no acute distress Nutritional Appearance: obese Orientation: alert, awake and oriented x3 HENMT Head: normal to inspection Ears: hearing grossly normal bilaterally Nose: external nose normal Face and sinus: normal facial exam Eyes General: appearance normal, both eyes and all related structures Alignment and Position: alignment normal Sclera: sclerae normal Neck Neck: normal visual inspection Chest Chest palpation inspection: normal inspection of the chest Resp Effort Inspection: normal respiratory effort, able to speak in complete sentences, symmetric chest movement, normal respiratory pattern, no audible wheezes and no cough Auscultation: Bilateral: Clear to Auscultation Cardio Rate: regular rate Rhythm: regular rhythm Heart Sounds: S1 normal and S2 normal Bruits: no carotid bruits GI Inspection: normal to inspection and obesity Musc Cervical Spine: normal cervical lordosis Thoracic/Lumbar Spine: thoracic and lumbar spine normal to inspection Skin General: no rashes or lesions noted Lesions: no lesions Rashes: no rashes Trauma: no lacerations or abrasions Wounds: no wounds Neuro General: patient alert, patient awake and patient oriented x3 Cognition (more content not included)... Normal [facility] Comprehensive Metabolic Prof ilon 12-30-2023 Albumin [Mass/Vol] 3.8 g/dL Normal 3.2-5.0 [facility] Comment on above: Performed By: #### L 506.0400, L501.9520, L500.4050, L500.4100, L506.1000, L502.0250 #### [facility] [address] [place], [address] Albumin/Globulin [Mass ratio] 1.2 {ratio} Normal 0.9-2.4 [facility] Comment on above: Performed By: #### L 506.0400, L501.9520, L500.4050, L500.4100, L506.1000, L502.0250 #### [facility] [address] [place], [address] ALK P 83 U/L Normal 45-117 [facility] Comment on above: Performed By: #### L 506.0400, L501.9520, L500.4050, L500.4100, L506.1000, L502.0250 #### [facility] [address] [place], [address] ALT [Catalytic activity/Vol] 16 U/L Normal 13-56 [facility] Comment on above: Performed By: #### L 506.0400, L501.9520, L500.4050, L500.4100, L506.1000, L502.0250 #### [facility] [address] [place], [address] AST [Catalytic activity/Vol] 18 U/L Normal 15-37 [facility] Comment on above: Performed By: #### L 506.0400, L501.9520, L500.4050, L500.4100, L506.1000, L502.0250 #### [facility] [address] [place], [address] Bilirubin [Mass/Vol] 0.70 mg/dL Normal 0.20-1.00 [facility] Comment on above: Result Comment: For patients on eltrombopag therapy, use of Dimension Ven[place] TBIL is not recommended. Performed By: #### L 506.0400, L501.9520, L500.4050, L500.4100, L506.1000, L502.0250 #### [facility] [address] [place], [address] BUN/CRE 14.3 RATIO Normal 10-20 [facility] Comment on above: Performed By: #### L 506.0400, L501.9520, L500.4050, L500.4100, L506.1000, L502.0250 #### [facility] [address] [place], [address] CA,Total 8.9 mg/dL Normal 8.5-10.1 [facility] Comment on above: Performed By: #### L 506.0400, L501.9520, L500.4050, L500.4100, L506.1000, L502.0250 #### [facility] [address] [place], [address] Chloride [Moles/Vol] 110 mmol/L High 98-107 [facility] Comment on above: Performed By: #### L 506.0400, L501.9520, L500.4050, L500.4100, L506.1000, L502.0250 #### [facility] [address] [place], [address] CO2 [Moles/Vol] 24.0 mmol/L Normal 21.0-32.0 [facility] Comment on above: Performed By: #### L 506.0400, L501.9520, L500.4050, L500.4100, L506.1000, L502.0250 #### [facility] [address] [place], [address] Creatinine [Mass/Vol] 0.84 mg/dL Normal 0.55-1.02 [facility] Comment on above: Result Comment: The validity of the calculated GFR GFRAA in patients over 70 years has not been determined. Clinical correlation is essential. Performed By: #### L 506.0400, L501.9520, L500.4050, L500.4100, L506.1000, L502.0250 #### [facility] [address] [place], [address] EST GFR - AA 102 mL/min Normal >60 [facility] Comment on above: Result Comment: Afri can [place] GFR Calc Performed By: #### L 506.0400, L501.9520, L500.4050, L500.4100, L506.1000, L502.0250 #### [facility] [address] [place], [address] GAP 5 Normal 5-15 [facility] Comment on above: Performed By: #### L 506.0400, L501.9520, L500.4050, L500.4100, L506.1000, L502.0250 #### [facility] [address] [place], [address] GFR/1.73 sq M.predicted among non-blacks MDRD (S/P/Bld) [Vol rate/Area] 84 mL/min/{1.73_m2} Normal >60 [facility] Comment on above: Result Comment: Non- GFR Calc Performed By: #### L 506.0400, L501.9520, L500.4050, L500.4100, L506.1000, L502.0250 #### [facility] [address] [place], [address] Globulin (S) [Mass/Vol] 3.3 g/dL Normal 2.2-4.2 [facility] Comment on above: Performed By: #### L 506.0400, L501.9520, L500.4050, L500.4100, L506.1000, L502.0250 #### [facility] [address] [place], [address] Glucose [Mass/Vol] 131 mg/dL High 74-106 [facility] Comment on above: Result Comment: Fast ing Glucose result greater than or equal to 126 mg/dL suggests DIABETES MELLITUS per A.D.A. criteria. Performed By: #### L 506.0400, L501.9520, L500.4050, L500.4100, L506.1000, L502.0250 #### [facility] [address] [place], [address] Potassium [Moles/Vol] 3.8 mmol/L Normal 3.5-5.1 [facility] Comment on above: Performed By: #### L 506.0400, L501.9520, L500.4050, L500.4100, L506.1000, L502.0250 #### [facility] [address] [place], [address] Sodium [Moles/Vol] 139 mmol/L Normal 136-145 [facility] Comment on above: Performed By: #### L 506.0400, L501.9520, L500.4050, L500.4100, L506.1000, L502.0250 #### [facility] [address] [place], [address] T PROT 7.1 g/dL Normal 6.4-8.2 [facility] Comment on above: Performed By: #### L 506.0400, L501.9520, L500.4050, L500.4100, L506.1000, L502.0250 #### [facility] [address] [place], [address] Urea nitrogen [Mass/Vol] 12 mg/dL Normal 7-18 [facility] Comment on above: Performed By: #### L 506.0400, L501.9520, L500.4050, L500.4100, L506.1000, L502.0250 #### [facility] [address] [place], [address] Lipid Profileon 12-30-2023 Cholesterol [Mass/Vol] 130 mg/dL Normal 200 [facility] Comment on above: Result Comment: <200 mg/dL Desirable 200-240 mg/dL Borderline >240 mg/dL High Risk Performed By: #### L 506.0400, L501.9520, L500.4050, L500.4100, L506.1000, L502.0250 #### [facility] [address] [place], [address] Cholesterol in HDL [Mass/Vol] 55 mg/dL Normal [facility] Comment on above: Result Comment: The drugs N-Acetylcysteine and Metamizole may falsely depress this assay. Reference Range HDL <40 mg/dL Low HDL Cholesterol HDL >or= 60 mg/dL High HDL Cholesterol Performed By: #### L 506.0400, L501.9520, L500.4050, L500.4100, L506.1000, L502.0250 #### [facility] [address] [place], [address] Cholesterol in LDL [Mass/Vol] 68 mg/dL Normal 0-130 [facility] Comment on above: Performed By: #### L 506.0400, L501.9520, L500.4050, L500.4100, L506.1000, L502.0250 #### [facility] [address] [place], [place], [id number] (401) Cholesterol in VLDL [Mass/Vol] 7 mg/dL Normal 5-40 [facility] Comment on above: Performed By: #### L 506.0400, L501.9520, L500.4050, L500.4100, L506.1000, L502.0250 #### [facility] [address] [place], [place], [id number] ([address] Triglyceride [Mass/Vol] 37 mg/dL Normal [facility] Comment on above: Result Comment: The drugs N-Acetylcysteine and Metamizole may falsely depress this assay. Serum Triglycerides Reference Interval Normal <150 mg/dL Borderline high 150 - 199 mg/dL High 200 - 499 mg/dL Very High > or = 500 mg/dL Performed By: #### L 506.0400, L501.9520, L500.4050, L500.4100, L506.1000, L502.0250 #### [facility] [address] [place], [place], [id number] ([address]) Microalb:Creat Ratio,Random URon 12-30-2023 Creatinine [Mass/Vol] 297.00 mg/dL Normal NO RANGE EST . [facility] Comment on above: Performed By: #### L 506.0400, L501.9520, L500.4050, L500.4100, L506.1000, L502.0250 #### [facility] [address] [place], [address] MALB:CRE 2.5 mg/g CRE Normal <30 mg/g CRE [facility] Comment on above: Performed By: #### L 506.0400, L501.9520, L500.4050, L500.4100, L506.1000, L502.0250 #### [facility] [address] [place], [address] MICROALBUMIN,UR 7.5 mg/L Normal NO RANGE EST. [facility] Comment on above: Performed By: #### L 506.0400, L501.9520, L500.4050, L500.4100, L506.1000, L502.0250 #### [facility] [address] [place], [address] T4 Free Directon 12-30-2023 T4 FREE DIRECT 1.08 ng/dL Normal 0.76-1.46 [facility] Comment on above: Performed By: #### L 506.0400, L501.9520, L500.4050, L500.4100, L506.1000, L502.0250 ####[facility] [address] [place], [address] Thyroid Stim Hormone (TSH)on 12-30-2023 TSH 2.61 uIU/mL Normal 0.358-3.74 [facility] Comment on above: Performed By: #### L 506.0400, L501.9520, L500.4050, L500.4100, L506.1000, L502.0250 #### [facility] [address] [place], [address] Vitamin D,25 Hydroxyon 12-29 Vitamin D 25-OH 24.9 ng/mL Normal [facility] Comment on above: Result Comment: Lucia min D 25(OH) Status Range Deficiency <20 ng/mL (50nmol/L) Insufficiency 20 - 30 ng/mL (50 - 75 nmol/L) Sufficiency 30 - 100 ng/mL (75 - 250 nmol/L) Toxicity >100 ng/mL (>250 nmol/L) Performed By: #### L 506.0400, L501.9520, L500.4050, L500.4100, L506.1000, L502.0250 #### [facility] [address], [address] Office Visit Reporton 2023 Office Visit Report [facility] [address] [address] OFFICE VISIT Date of Service: 11/04/23 MR#: [id number] Acct: [id number] Patient: PAULY WHITEHEAD Rep #: [id number] : 1995 Provider: Dr. Korin hill MD Age/Sex: 28/F Location: [facility] [place] Status: Signed with Addenda ADDENDUM by Dr. Korin Mckeon MD on 11/12/23 at 1021 Assessment Plan (1) BMI 34.0-34.9,adult: COMMENT: SW- 258 04/18/23 Initial goal- s/p 22% weight loss. dose of medication increased 11/12. (2) Other obesity: COMMENT: Nutrition plan: 5091-1768 Balanced calorie restricted nutritional plan diabetic friendly. tracks with yakelin. Medication plan: Qsymia 15mg, dose increased 11/12. control- IUD Behavior intervention: recommend daily journal of food intake with electronic methods, manage stress with healthy coping mechanisms Exercise plan: 150 minutes weekly moderate exercise (3) Hyperlipidemia due to type 1 diabetes mellitus: COMMENT: recommend weight reduction- hast lost over 20%. On statin. Tolerating well. Has added flaxseed oil capsules. (4) Diabetes mellitus type 1: QUALIFIERS: Diabetes mellitus complication status: with hyperglycemia Qualified Code(s): E10.65 - Type 1 diabetes mellitus with hyperglycemia (5) Contraception management: QUALIFIERS: Contraceptive encounter type: surveillance Contraceptive type: other Qualified Code(s): Z30.49 - Encounter for surveillance of other contraceptives COMMENT: IUD in. discussed risk of defects on qsymia/topamax 11/12/23 1021 Date Korin Mckeon MD cc: * Signed Intake Vital Signs 07/29/23 10:34 11/04/23 09:13 Height 5 ft 4 in 5 ft 4 in Weight: 189 lb BMI 32.4 BP 119/83 H Blood Pressure Location Lt brachial Position Sitting Respiration 16 Pulse 88 Pulse Source Monitor Intake Visit Reasons: 3 M FU (PER ) Top Inventory Control Executive Required: No Is patient in pain?: No Allergies strawberry Allergy (Severe, Verified 11/04/23 09:21) Food Allergy Medications insulin syringe-needle U-100 1 mL 31 gauge x 5/16" (BD Insulin Syringe Ultra-Fine) #100 ea 06/11/17 [Rx Confirmed 11/04/23] trazodone 50 mg tablet tablet PO 01/16/21 [History Confirmed 11/04/23] lancets (Accu-Chek Fastclix Lancet Drum) #75 ea 06/09/21 [Rx Confirmed 11/04/23] Humalog U-100 Insulin 100 unit/mL subcutaneous solution (insulin lispro) See Rx Instructions continuous subcutaneous infusion .COMPLEX #70 mL 09/14/22 [Rx Confirmed 11/04/23] atorvastatin 20 mg tablet 20 mg PO DAILY #90 tabs 09/14/22 [Rx Confirmed 11/04/23] blood sugar diagnostic (Accu-Chek Guide test strips) #400 ea 09/14/22 [Rx Confirmed 11/04/23] empagliflozin 25 mg tablet (Jardiance) 25 mg PO QAM #90 tabs 09/14/22 [Rx Confirmed 11/04/23] phentermine 15 mg-topiramate ER 92 mg capsule,ext.release2 4hr multphas (Qsymia) 1 cap PO DAILY #30 caps 11/04/23 [Rx Confirmed 11/04/23] Is last menstrual period known: Yes Post menopausal: No Patient : No Current gender identity: female Nurse's Note: Lost 9 pounds making a total of 69 pounds. 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 Are there any changes we need to make to your current plan right now?: No Side Effects: No Chest Pain, No Palpitations, No Increased Heart Rate, No Irregular Heart Rhythm, No Increased Blood Pressure, No Change in breathing patterns, No Kidney Stones, No Change in vision, No Insomnia, No Difficulty with memory/speech, No Numbness in hands/feet, No New onset severe fatigue, No Nausea/vomiting, No Constipation and No Depressed mood Are there any side effects interfering with quality of life enough you would want to stop medication?: No What's improved for you since losing weight and making your lifestyle change?: Quality of life has improved greatly, working out has gotten "easier", don't have any food craving's Is there anything else we can help you with on your weight loss journey today?: No, I would just like to keep going with everything! Weight Management Weight Management patient seen for obesity related comorbidities/weight management medication follow up. WM questionnaire answers reviewed with patient, and any questions answered. support given to p (more content not included)... Normal [facility] XR Foot - right AP and Later al and obliqueon 08-20-2023 [facility] Basophil percentageOrdered B y: Dr. Mckeon on 12-10-2022 Chloride [Moles/Vol] 109 mmol/L 98-107 [facility] Glucose [Mass/Vol] 191 mg/dL 74-106 [facility] Comment on above: Fasting Glucose resu lt greater than or equal to 126 mg/dL suggests DIABETES MELLITUS per A.D.A. criteria. Potassium [Moles/Vol] 4.2 mmol/L 3.5-5.1 [facility] Sodium [Moles/Vol] 138 mmol/L 136-145 [facility] - Chemistry and C hemistry - challengeOrdered By: Dr. Mckeon on 12-10-2022 CO2 [Moles/Vol] 23.0 mmol/L 21.0-32.0 [facility] Urea nitrogen/Creatinine [Mass ratio] 15.4 mg/mg 10-20 [facility] No Panel InformationOrdered By: Dr. Mckeon on 12-10-2022 Estimated GFR (MDRD) Amer 102 mL/min >60 [facility] Comment on above: GFR Calc Estimated GFR (MDRD) Non-Af Amer 84 mL/min >60 [facility] Comment on above: Non- GFR Calc Serum or plasma calcium mireya urement (mass/volume)Ordered By: Dr. Mckeon on 12-10-2022 Calcium [Mass/Vol] 9.2 mg/dL 8.5-10.1 [facility] Serum or plasma creatinine m easurement (mass/volume)Ordered By: Dr. Mckeon on 12-10-2022 Creatinine [Mass/Vol] 0.84 mg/dL 0.55-1.02 [facility] Comment on above: The validity of the calculated GFR & GFRAA in patients over 70 years has not been determined. Clinical correlation is essential. Serum or plasma urea nitroge n measurement (mass/volume)Ordered By: Dr. Mckeon on 12-10-2022 Urea nitrogen [Mass/Vol] 13 mg/dL 7-18 [facility] Thin prep Papanicolaou smear with manual screeningOrdered By: Dr. Mckeon on 12-10-2022 Thin prep Papanicolaou smear with manual screening 6 5-15 [facility] - Hematology and Cell countson 09-14-2022 HbA1c (Bld) [Mass fraction] 6.8 % [facility] Comment on above: POC A1C previously r eported as 6.2 Basophil percentageOrdered B y: Dr. Andrew on 09-03-2022 Bilirubin [Mass/Vol] 0.60 mg/dL 0.20-1.00 [facility] Comment on above: For patients on eltr ombopag therapy, use of Dimension [place] TBIL is not recommended. Chloride [Moles/Vol] 107 mmol/L 98-107 [facility] Cholesterol [Mass/Vol] 140 mg/dL <200 [facility] Comment on above: <200 mg/dL Desirable 200-240 mg/dL Borderline >240 mg/dL High Risk Glucose [Mass/Vol] 121 mg/dL 74-106 [facility] Comment on above: Fasting Glucose resu lt from 100 to 125 mg/dL suggests IMPAIRED HOMEOSTASIS per A.D.A. criteria. Potassium [Moles/Vol] 3.4 mmol/L 3.5-5.1 [facility] Protein [Mass/Vol] 7.7 g/dL 6.4-8.2 [facility] Sodium [Moles/Vol] 138 mmol/L 136-145 [facility] Triglyceride [Mass/Vol] 57 mg/dL <[address] [facility] Comment on above: The drugs N-Acetylcy steine and Metamizole may falsely depress this assay.Serum Triglycerides Reference Interval Normal <150 mg/dL Borderline high 150 - 199 mg/dL High 200 - 499 mg/dL Very High > or = 500 mg/dL Laboratory - Chemistry and C hemistry - challengeOrdered By: Dr. Andrew on 09-03-2022 ALP [Catalytic activity/Vol] 85 U/L 45-117 [facility] ALT [Catalytic activity/Vol] 20 U/L 13-56 [facility] CO2 [Moles/Vol] 21.0 mmol/L 21.0-32.0 [facility] Globulin (S) [Mass/Vol] 3.7 g/dL 2.2-4.[address] [facility] Urea nitrogen/Creatinine [Mass ratio] 24.9 mg/mg 10-20 [facility] No Panel InformationOrdered By: Dr. Andrew on 09-03-2022 Estimated GFR (MDRD) Amer 115 mL/min >60 [facility] Comment on above: GFR Calc Estimated GFR (MDRD) Non-Af Amer 95 mL/min >60 [facility] Comment on above: Non- GFR Calc Thyroid Stimulating Hormone (TSH) 2.96 uIU/mL 0.358-3.74 [facility] Urine Microalbumin/Creatinine Ratio 3.6 mg/g CRE <30 [facility] Vitamin D 25-Hydroxy 33.6 ng/mL [facility] Comment on above: Vitamin D 25(OH) Sta tus Range Deficiency <20 ng/mL (50nmol/L) Insufficiency 20 - 30 ng/mL (50 - 75 nmol/L) Sufficiency 30 - 100 ng/mL (75 - 250 nmol/L) Toxicity >100 ng/mL (>250 nmol/L) Serum or plasma albumin mireya urement (mass/volume)Ordered By: Dr. Andrew on 09-03-2022 Albumin [Mass/Vol] 4.0 g/dL 3.2-5.0 [facility] Serum or plasma albumin/glob ulin mass ratioOrdered By: Dr. Andrew on 09-03-2022 Albumin/Globulin [Mass ratio] 1.1 {ratio} 0.9-2.4 [facility] Serum or plasma calcium mireya urement (mass/volume)Ordered By: Dr. Andrew on 09-03-2022 Calcium [Mass/Vol] 9.0 mg/dL 8.5-10.1 [facility] Serum or plasma cholesterol in HDL measurement (mass/volume)Ordered By: Dr. Andrew on 09-03-2022 Cholesterol in HDL [Mass/Vol] 39 mg/dL >40 [facility] Comment on above: The drugs N-Acetylcy steine and Metamizole may falsely depress this assay. Reference Range HDL <40 mg/dL Low HDL Cholesterol HDL >or= 60 mg/dL High HDL Cholesterol Serum or plasma cholesterol in VLDL measurement (mass/volume)Ordered By: Dr. Andrew on 09-03-2022 Cholesterol in VLDL [Mass/Vol] 11 mg/dL 5-40 [facility] Serum or plasma creatinine m easurement (mass/volume)Ordered By: Dr. Andrew on 09-03-2022 Creatinine [Mass/Vol] 0.76 mg/dL 0.55-1.02 [facility] Comment on above: The validity of the calculated GFR & GFRAA in patients over 70 years has not been determined. Clinical correlation is essential. Serum or plasma low density lipoprotein (LDL) cholesterol measurement (mass/volume)Ordered By: Dr. Andrew on 09-03-2022 Cholesterol in LDL [Mass/Vol] 90 mg/dL 0-130 [facility] Serum or plasma urea nitroge n measurement (mass/volume)Ordered By: Dr. Andrew on 09-03-2022 Urea nitrogen [Mass/Vol] 19 mg/dL 7-18 [facility] Thin prep Papanicolaou smear with manual screeningOrdered By: Dr. Andrew on 09-03-2022 Thin prep Papanicolaou smear with manual screening 13 U/L 15-37 [facility] Thin prep Papanicolaou smear with manual screening 10 5-15 [facility] Thin prep Papanicolaou smear with manual screening 9.6 mg/L NO RANGE EST. [facility] Urine creatinine measurement (mass/volume)Ordered By: Dr. Andrew on 09-03-2022 Creatinine (U) [Mass/Vol] 268.00 mg/dL NO RANGE EST. [facility] Basophil percentageOrdered B y: Dr. Mckeon on 08-03-2022 Chloride [Moles/Vol] 113 mmol/L 98-107 [facility] Glucose [Mass/Vol] 148 mg/dL 74-106 [facility] Comment on above: Fasting Glucose resu lt greater than or equal to 126 mg/dL suggests DIABETES MELLITUS per A.D.A. criteria. Potassium [Moles/Vol] 4.0 mmol/L 3.5-5.1 [facility] Comment on above: Slight Hemolysis, Re sult may be falsely increased. Sodium [Moles/Vol] 141 mmol/L 136-145 [facility] - Chemistry and C hemistry - challengeOrdered By: Dr. Mckeon on 08-03-2022 CO2 [Moles/Vol] 23.0 mmol/L 21.0-32.0 [facility] Urea nitrogen/Creatinine [Mass ratio] 14.6 mg/mg 10-20 [facility] No Panel InformationOrdered By: Dr. Mckeon on 08-03-2022 Estimated GFR (MDRD) Amer 96 mL/min >60 [facility] Comment on above: GFR Calc Estimated GFR (MDRD) Non-Af Amer 79 mL/min >60 [facility] Comment on above: Non- GFR Calc Serum or plasma calcium mireya urement (mass/volume)Ordered By: Dr. Mckeon on 08-03-2022 Calcium [Mass/Vol] 8.9 mg/dL 8.5-10.1 [facility] Serum or plasma creatinine m easurement (mass/volume)Ordered By: Dr. Mckeon on 08-03-2022 Creatinine [Mass/Vol] 0.89 mg/dL 0.55-1.02 [facility] Comment on above: The validity of the calculated GFR & GFRAA in patients over 70 years has not been determined. Clinical correlation is essential. Serum or plasma urea nitroge n measurement (mass/volume)Ordered By: Dr. Mckeon on 08-03-2022 Urea nitrogen [Mass/Vol] 13 mg/dL 7-18 [facility] Thin prep Papanicolaou smear with manual screeningOrdered By: Dr. Mckeon on 08-03-2022 Thin prep Papanicolaou smear with manual screening 5 5-15 [facility] Cervical or vagninal specime n microscopic examination by cytology stain (reported asOrdered By: Chapis Nash on 04-18-2022 Cytology report Cyto stain Doc (Cvx/Vag) Comment . [facility] Comment on above: The Pap smear is a s creening test designed to aid in thedetection of premalignant and malignant conditions of theuterine cervix. It is not a diagnostic procedure andshould not be used as the sole means of detecting cervicalcancer. Both false-positive and false-negative reports dooccur. Laboratory - CytologyOrdered By: Chapis Nash on 04-18-2022 Sales And Marketing Intern Cyto stain Nom (Cvx/Vag) [ID] Comment . [facility] Comment on above: Matheus Pacheco totechnologist Laboratory - Miscellaneous t estsOrdered By: Chapis Nsah on 04-18-2022 Service comment (Unsp spec) [Interp] Comment . [facility] Comment on above: This liquid based Th inPrep(R) pap test was screened withthe use of an image guided system. Service comment (Unsp spec) [Interp] . . [facility] No Panel InformationOrdered By: Chapis Nash on 04-18-2022 Human Papillomavirus Screen Comment . [facility] Comment on above: The HPV DNA reflex c renetta were not met with this specimenresult therefore, no HPV testing was performed.Performed at: [facility] [id number] Director: Quin David MD, Phone: [phone] Pathology report final diagnosis Narrative Comment . [facility] Comment on above: NEGATIVE FOR INTRAEP ITHELIAL LESION OR MALIGNANCY. Laboratory - Hematology and Cell countson 01-08-2022 HbA1c (Bld) [Mass fraction] 7.1 % [facility] Work Phone: APTTon 04-20-2019 aPTT Coag (Bld) [Time] 31.2 s Normal 25.4 - 38.4 J l [facility] Comment on above: Performed By: #### [id number] #### [facility],[address] [place], [place] [id number] CT FOOT W/O RTon 04-20-2019 CT FOOT W/O RT [place] [id number] Patient: PAULY WHITEHEAD Phone#: : 1995 Age: 24 Gender: F Pt. Type: Out Account: [id number] Location: [facility] Ordering: RASHAAD MCWILLIAMS Exam Date: 04/20/2019/14:23 Family Phys: TALAMYSAS Charge Code: 535992 Physician: Hyde Order #: [id number] DLP Dose#: PROCEDURE: CT FOOT RT WITHOUT CONTRAST COMPARISON: None. INDICATIONS: Foot fracture. TECHNIQUE: Multi-planar CT images were created without intravenous contrast. All CT scans at this facility use dose modulation, iterative reconstruction, and/or weight based dosing when appropriate to reduce radiation dose to as low as reasonably achievable. IV CONTRAST: No IV contrast used,0ml TOTAL DOSE: 6.60 CTDIvol(mGy) FINDINGS: BONES: Comminuted fracture at the base of the first metatarsal. There are is 6 mm displacement of a plantar fragment. Fracture line extends to the first metatarsal bursal joint. SOFT TISSUES: Soft tissue edema is present dorsal and plantar to the fracture site. EFFUSION: None visible. OTHER: Negative. CONCLUSION: 1. Comminuted fracture of the proximal first metatarsal. The largest fragment is plantar with displacement. Dictated by: Joellen Lawson MD on 04/20/2019 at 15:20 Approved by: Joellen Lawson MD on 04/20/2019 at 15:20 Normal [facility] PROTHROMBIN TIME AND INRon 1 INR Coag (Bld) [Relative time] Normal [facility] Comment on above: Result Comment: PROT HROMBIN TIME AND INR Performed By: #### 2 02961 #### [address] [address] INR Coag (PPP) [Relative time] 1.0 {INR} Normal 0.8 - 1.2 [facility] Comment on above: Result Comment: T HE HEMOSIL THROMBOPLASTIN REAGENT USED IN THE PROTHROMBIN TIME TEST INTERACTS WITH THE DRUG CUBICIN (DAPTOMYCIN) AND WILL RESULT IN FALSELY ELEVATED PT / INR RESULTS INR INTERPRETATION INR INDICATION PREVENTION AND TREATMENT OF THROMBOEMBOLISM ASSOCIATED WITH: 2.0 - 3.0 ATRIAL FIBRILLATION, BIOPROSTHETIC HEART VALVES, PULMONARY EMBOLISM, VENOUS THROMBOSIS, SYSTEMIC EMBOLISM POST MYOCARDIAL INFARCTION 2.5 - 3.5 MECHANICAL HEART VALVES Performed By: #### 2 50275 #### [place] [id number] PT-COUMADIN 11.7 sec Normal 9.3 - 14.1 [facility] Comment on above: Performed By: #### 2 98407 #### [address] [address] HGB A1C [CCL]on 04-18-2019 HbA1c (Bld) [Mass fraction] 8.3 % High 4.3-5.6 [facility] Comment on above: Result Comment: Amer [place] Diabetes Association guidelines indicate that patients with HgbA1c in the range 5.7-6.4% are at increased risk for development of diabetes, and intervention by lifestyle modification may be beneficial. HgbA1c greater or equal to 6.5% is considered diagnostic of diabetes. Performed By: #### 2 49107 #### [address] [address] HbA1c (Bld) [Mass fraction] 192 mg/dL Normal [facility] Comment on above: Result Comment: eAG: (Estimated average glucose) is a calculated value from HgbA1c and is senior customer service representative of the average blood glucose level in the last 2-3 month period. [facility] [employer] [address] [place] [address] Estefania Pierre M.D. [id number] Performed By: #### 2 42932 #### [facility],[address] [place] [address] Hemoglobin A1con 04-18-2019 HbA1c (Bld) [Mass fraction] 8.3 % High 4.3-5.6 [facility] Comment on above: Performed By: #### H BA1C #### [facility] [address] [place] [address] HbA1c (Bld) [Mass fraction] 192 mg/dL Normal [facility] Comment on above: Performed By: #### H BA1C #### [facility] [address] [place] [address] BMP with eGFRon 04-17-2019 Age - Reported 24 years Normal [facility] Comment on above: Performed By: #### 2 25529 #### [facility],[address] [place] [address] Anion gap [Moles/Vol] 16 mmol/L Normal 10 - 20 [facility] Comment on above: Performed By: #### 2 47026 #### [facility],[address] [place] [address] Calcium [Mass/Vol] 9.4 mg/dL Normal 8.6 - 10.2 [facility] Comment on above: Performed By: #### 2 02984 #### [facility],[address] [place] [address] Chloride [Moles/Vol] 108 mmol/L High 98 - 107 [facility] Comment on above: Performed By: #### 2 51148 #### [facility],[address] [place] [address] CO2 [Moles/Vol] 20.2 mmol/L Low 21.0 - 31.0 [facility] Comment on above: Performed By: #### 2 46011 #### [facility],[address] [place] [address] Creatinine [Mass/Vol] 0.6 mg/dL Normal 0.6 - 1.2 [facility] Comment on above: Performed By: #### 2 65155 #### [facility],[address] [place] [address] GFR/1.73 sq M predicted among non-blacks MDRD (S/P/Bld) [Vol rate/Area] mL/min/{1.73_m2} Normal 60 - 999 [facility] Comment on above: Performed By: #### 2 19399 #### [facility],[address] [place], [place] [id number] Result Comment: ACCO RDING TO THE NATIONAL KIDNEY DISEASE EDUCATION PROGRAM(NKDE), A NORMAL eGFR IS A VALUE GREATER THAN OR EQUAL TO 60 ML/MIN/1.73 SQ METERS. CHRONIC KIDNEY DISEASE: <60mL/MIN/1.73 SQ METERS KIDNEY FAILURE: <15mL/MIN/1.73 SQ METERS THIS TEST SHOULD ONLY BE USED FOR PATIENTS 18 YEARS OF AGE AND OLDER. GFR/1.73 sq M predicted among non-blacks MDRD (S/P/Bld) [Vol rate/Area] Normal [facility] Comment on above: Result Comment: BASI C METABOLIC PANEL Performed By: #### 2 85241 #### [facility],[address] [place] [address] Glucose [Mass/Vol] 96 mg/dL Normal 74 - 106 [facility] Comment on above: Performed By: #### 2 00027 #### [facility],[address] [place] [address] Potassium [Moles/Vol] 3.8 mmol/L Normal 3.5 - 5.1 [facility] Comment on above: Performed By: #### 2 16218 #### [facility],[address] [place] [address] Sodium [Moles/Vol] 140 mmol/L Normal 136 - 145 [facility] Comment on above: Performed By: #### 2 43899 #### [facility],[address] [place] [address] Urea nitrogen [Mass/Vol] 7 mg/dL Normal 6 - 20 [facility] Comment on above: Performed By: #### 2 44016 #### [facility],[address] [place] [address] CBC + DIFFon 04-17-2019 Basophils (Bld) [#/Vol] 0.00 x10EE3/UL Normal 0.00 - 0 .10 [facility] Comment on above: Performed By: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 End: 02-14-2023 Patient encounter procedure Marnie Hearn APRN.SUGAR PRESSER Work Phone: [facility] [place] Comment on above: Wellness examination (Primary Dx); Type 1 diabetes mellitus without complication (HCC); Mixed hyperlipidemia; Obesity, Class II, BMI 35-39.9; Anxiety; Insomnia, unspecified type Start: 02-14-2023 End: 02-14-2023 Patient encounter status Marnie Dhiraj LAWRENCESUGAR PRESSER Work Phone: [facility] Work Phone: Start: 02-04-2023 Get Medical Advice Fe cooper MD Work Phone: Internal Medicine [place] Comment on above: Lab Orders for upcom ing appointment Start: 02-04-2023 Patient encounter status Fe Tolentino MD Work Phone: [facility] Work Phone: Start: 12-10-2022 End: 12-10-[address] Fe Tolentino Work Phone: [facility] Work Phone: Start: 12-10-2022 End: 12-10-[address] Fe Tolentino Work Phone: [facility] Start: 11-13-2022 End: 11-13-[address] Fe Tolentino Work Phone: [facility] Start: 10-17-2022 End: 10-17-[address] Fe Tolentino Work Phone: [facility] Start: 09-14-2022 End: 09-14-[address] Fe Tolentino Work Phone: [facility] Endocrinology Start: 09-11-2022 End: 09-11-[address] Fe Tolentino Work Phone: [facility] Start: 09-03-2022 End: 09-21-[address] [facility] Start: 09-03-[address] [facility] Start: 09-03-2022 End: 09-03-[address] Fe Tolentino Work Phone: [facility] Work Phone: Start: 09-03-2022 End: 09-03-[address] Fe Tolentino Work Phone: [facility]-Laboratory Start: 08-03-2022 End: 08-03-[address] Fe Tolentino Work Phone: [facility] Work Phone: Start: 08-03-2022 End: 08-03-[address] Fe Tolentino Work Phone: [facility] Start: 08-03-2022 End: 08-03-[address] Fe Tolentino Work Phone: [facility] Start: 06-22-2022 End: 06-22-[address] Fe Tolentino Work Phone: [facility] Start: 06-06-2022 End: 06-06-2022 Non-patient / Non-visit Dr. Fe Tolentino Work Phone: [facility] Start: 06-06-2022 End: 06-06-[address] Fe Tolentino Work Phone: [facility] Work Phone: Start: 06-06-2022 End: 06-06-[address] Fe Tolentino Work Phone: [facility]-Pulmonary Services/Neurology Start: 05-31-2022 ambulatory Maki MACARIOPOWER HAIR CLIPPER Work Phone: [facility] [place] Comment on above: Weight Management Start: 05-29-2022 ambulatory Fe starks MD Work Phone: [facility] [place] Comment on above: Weight Management Start: 05-29-2022 End: 05-29-[address] Fe Tolentino Work Phone: [facility] Start: 04-18-2022 End: 04-18-[address] Fe Tolentino Work Phone: [facility] Work Phone: Start: 04-18-2022 End: 04-18-[address] Fe Tolentino Work Phone: [facility]-Laboratory, Specimen Start: 04-18-2022 End: 04-18-[address] Fe Tolentino Work Phone: [facility] Start: 04-17-2022 End: 04-17-2022 Patient encounter procedure Olivia Newman DO Work Phone: Vascular Surgery Comment on above: Venous (peripheral) insufficiency (Primary Dx); Spider veins of both lower extremities Start: 02-15-2022 End: 02-15-2022 Patient encounter procedure Maki Ramirez APRN.POWER HAIR CLIPPER Work Phone: [facility] [place] Comment on above: Routine medical exam (Primary Dx); Type 1 diabetes mellitus without complication (HCC); Mixed hyperlipidemia; Morbid obesity with BMI of 40.0-44.9, adult (HCC); Encounter for immunization; Anxiety; Insomnia, unspecified type; Vitamin D deficiency; Screening for cervical cancer; Spider veins of both lower extremities Start: 02-15-2022 End: 02-15-2022 Patient encounter status Maki Ramirez APRN.POWER HAIR CLIPPER Work Phone: [facility] [place] Start: 02-12-2022 ambulatory Maki MACARIOPOWER HAIR CLIPPER Work Phone: [facility] [place] Comment on above: Physical/Wellness Vi sit on 02-15-22 Start: 01-08-2022 End: 01-08-[address] Fe Tolentino Work Phone: [facility] Start: 09-23-2019 End: 01-28-2020 Patient encounter procedure TL DPM [facility] Start: 07-15-2019 End: 09-22-2019 Patient encounter procedure TL DPM [facility] Start: 04-20-2019 End: 04-20-2019 Patient encounter procedure [facility] Start: 04-17-2019 Encounter for preprocedural laboratory examination [facility] Start: 04-17-2019 End: 04-17-2019 Patient encounter procedure [facility] Start: 04-14-2019 End: 04-14-2019 Emergency department patient visit [facility] Encounter for preprocedural laboratory examination [facility] Procedures Date Procedure Procedure Detail Performing Clinician Start: 02-17-2024 Adult depression screening assessment Maki Ramirez APRN.POWER HAIR CLIPPER Work Phone: Start: 08-20-2023 Radex foot complete minimum 3 views Elie Carvajal Work Phone: Start: 04-04-2021 Adult depression screening assessment Maki Ramirez APRN.POWER HAIR CLIPPER Work Phone: Plan of Treatment Date Care Activity Detail Author Start: 03-14-2026 Urine microalbumin profile [facility] Start: 02-24-2025 End: 02-24-2025 Patient encounter procedure 02/24/2025 1:00 PM EDT Office Visit [facility] [place] [address] [place], [place] [id number] Fe Tolentino MD [address] [place], [place] [id number] Physical [facility] [place] Comment on above: Physical Start: 02-22-2025 Influenza vaccination [facility] Start: 02-16-2025 Anxiety Screening Anxiety Screening [facility] Start: 02-16-2025 Depression Screening Depression Scre [place] [facility] Start: 01-19-2025 End: 01-19-2025 Patient encounter procedure 01/19/2025 4:00 PM EDT Office Visit Podiatry [address] [place] [address] Elie Carvajal [address] [place] [address] post op Podiatry Comment on above: post op Start: 01-05-2025 End: 01-05-2025 Patient encounter procedure 01/05/2025 9:45 AM EDT Office Visit Podiatry [address] [place] [address] Elie Carvajal [address] [place] [address] 1 week follow up post op Podiatry Comment on above: 1 week follow up pos t op Start: 12-29-2024 End: 12-29-2024 Patient encounter procedure 12/29/2024 9:15 AM EDT Office Visit Podiatry [address] [place] [address] Elie Carvajal [address] [place] [address] s/p Podiatry Comment on above: s/p Start: 12-22-2024 End: 12-22-2024 Patient encounter procedure 12/22/2024 8:15 AM EDT Office Visit Podiatry [address] [place] [address] Elie Carvajal [address] [place] [address] s/p Podiatry Comment on above: s/p Start: 12-15-2024 End: 12-15-2024 Patient encounter procedure 12/15/2024 8:15 AM EDT Office Visit Podiatry [address] [place] [address] Elie Carvajal [address] [place], [place] [address] s/p Podiatry Comment on above: s/p Start: 12-11-2024 End: 12-11-2024 Admission to same day surgery center 12/11/2024 7:30 AM EDT - 12/11/2024 8:45 AM EDT Surgery [facility] [address] [place] [place] [address] Elie Carvajal [address] [place], [place] [id number] RECONSTRUCTION TOE [facility] Surgery Comment on above: RECONSTRUCTION TOE H AMMER Start: 12-11-2024 End: 12-11-2024 Correction hammertoe ME OR Start: 12-11-2024 Subsequent hospital visit by physician 12/11/2024 7:30 AM EDT Hospital Encounter [facility] [address] [place] [place] [address] Elie Carvajal [address] [place], [place] [id number] Acquired hammer toe [M20.40] [facility] Comment on above: Acquired hammer toe [M20.40] Start: 10-20-2024 End: 10-20-2024 Patient encounter procedure 10/20/2024 9:45 AM EDT Office Visit Podiatry [address] [place] [address] Elie Carvajal [address] [place], [place] [id number] Discuss options/surgical option for right 5th toe. Podiatry Comment on above: Discuss options/surg ical option for right 5th toe. Start: 10-06-2024 End: 10-06-2024 Patient encounter procedure 10/06/2024 11:00 AM EDT Office Visit Vasculary Surgery Vincent E BERNYDougieJim[address] [place] [address] Callus [L84] [facility] Comment on above: Callus [L84] Start: 03-11-2024 Glaucoma screening Dilated Retinal E xam [facility] Start: 02-23-2024 Covid-19 Vaccine () Covid-19 Vaccine () [facility] Start: 02-23-2024 Influenza vaccination Influenza Vacc ine (#1) [facility] Start: 02-15-2024 3 comp foot exam completed DIABETIC FOOT EXAM [facility] Start: 02-15-2024 ANNUAL PCP TEAM SENIOR PYTHON DEVELOPER TRISH DISEASE VISIT ANNUAL PCP TEAM CHRONIC DISEASE VISIT [facility] Start: 02-15-2024 COVID-19 VACCINE (4 - Pfizer series) COVID-19 VACCINE (4 - Pfizer series) [facility] Comment on above: Postponed from 05/19 (Declined at this time) Start: 02-15-2024 Diabetic foot examination Diabetic Foot Exam [facility] Start: 02-12-2024 Hepatitis B surface antibody level LDL CHOLESTEROL [facility] Start: 08-14-2023 Hemoglobin A1c measurement HbA1C [facility] Start: 08-14-2023 Hemoglobin A1c/Hemoglobin.total in Blood HBA1C [facility] Start: 07-28-2023 PAP TESTING PAP TESTING [facility] Start: 07-28-2023 Screening for malign ant neoplasm of cervix [facility] Start: 06-24-2023 Depression Assessment Depression Ass essment [facility] Start: 04-26-2023 Hepatitis B screening URINE AL BUMIN:CREATININE RATIO [facility] Comment on above: Postponed from 04/04 (Declined at this time) Start: 02-22-2023 Covid-19 Vaccine () Covid-19 Vaccine () [facility] Start: 02-22-2023 Influenza vaccination [facility] Start: 02-15-2023 ANNUAL PCP TEAM SENIOR PYTHON DEVELOPER TRISH DISEASE VISIT ANNUAL PCP TEAM CHRONIC DISEASE VISIT [facility] Start: 02-14-2023 Hepatitis B surface antibody level LDL CHOLESTEROL [facility] Start: 02-06-2023 End: 04-08-2023 CBC panel - Blood by Automated count CBC Lab Routine Routine medical exam Expected: 02/06/2023, Expires: 04/08/2023 [facility] Work Phone: Comment on above: Expected: 02/06/2023 , Expires: 04/08/2023 Start: 02-06-2023 End: 04-08-2023 Comprehensive metabolic 2000 panel - Serum or Plasma COMP METABOLIC PANEL Lab Routine Routine medical exam Expected: 02/06/2023, Expires: 04/08/2023 [facility] Work Phone: Comment on above: Expected: 02/06/2023 , Expires: 04/08/2023 Start: 02-06-2023 End: 04-08-2023 Hemoglobin A1c in Blood HGB A1C Lab Routine Type 1 diabetes mellitus without complication (HCC) Routine medical exam Expected: 02/06/2023, Expires: 04/08/2023 [facility] Work Phone: Comment on above: Expected: 02/06/2023 , Expires: 04/08/2023 Start: 02-06-2023 End: 04-08-2023 Lipid 1996 panel - Serum or Plasma LIPID PANEL BASIC Lab Routine Mixed hyperlipidemia Routine medical exam Expected: 02/06/2023, Expires: 04/08/2023 [facility] Work Phone: Comment on above: Expected: 02/06/2023 , Expires: 04/08/2023 Start: 2023 Hepatitis C antibody , confirmatory test DILATED RETINAL EXAM [facility] Start: 2023 HPV TESTING HPV TESTING [facility] Start: 2023 Screening for malign ant neoplasm of cervix HPV Testing [facility] Start: 08-17-2022 Hemoglobin A1c/Hemoglobin.total in Blood HBA1C [facility] Start: 06-24-2022 DEPRESSION ASSESSMENT DEPRESSION ASS ESSMENT [facility] Start: 04-18-2022 Liquid based cervica l cytology screening [facility] Work Phone: Start: 04-07-2022 3 comp foot exam completed DIABETIC FOOT EXAM [facility] Start: 04-04-2022 Adult depression screening assessment DEPRESSION SCREENING [facility] Start: 04-04-2022 Hepatitis B screening URINE AL BUMIN:CREATININE RATIO [facility] Start: 04-04-2022 Hepatitis B surface antibody level LDL CHOLESTEROL [facility] Start: 02-22-2022 Influenza vaccination INFLUENZA (#1) [facility] Start: 02-12-2022 End: 04-14-2022 25-hydroxyvitamin D3 [Mass/volume] in Serum or Plasma VITAMIN D 25 HYDROXY Lab Routine Vitamin D deficiency Expected: 02/12/2022, Expires: 04/14/2022 [facility] Work Phone: Comment on above: Expected: 02/12/2022 , Expires: 04/14/2022 Start: 02-12-2022 End: 04-14-2022 Comprehensive metabolic 2000 panel - Serum or Plasma [facility] Work Phone: Comment on above: Expected: 02/12/2022 , Expires: 04/14/2022 Start: 02-12-2022 End: 04-14-2022 Hemoglobin A1c in Blood HGB A1C Lab Routine Type 1 diabetes mellitus without complication (HCC) Expected: 02/12/2022, Expires: 04/14/2022 [facility] Work Phone: Comment on above: Expected: 02/12/2022 , Expires: 04/14/2022 Start: 02-12-2022 End: 04-14-2022 Lipid 1996 panel - Serum or Plasma LIPID PANEL BASIC Lab Routine Mixed hyperlipidemia Expected: 02/12/2022, Expires: 04/14/2022 [facility] Work Phone: Comment on above: Expected: 02/12/2022 , Expires: 04/14/2022 Start: 10-03-2021 Hemoglobin A1c/Hemoglobin.total in Blood HBA1C [facility] Start: 07-28-2021 PAP TESTING PAP TESTING [facility] Start: 07-05-2021 ANNUAL PCP TEAM SENIOR PYTHON DEVELOPER TRISH DISEASE VISIT ANNUAL PCP TEAM CHRONIC DISEASE VISIT [facility] Start: 06-24-2021 DEPRESSION ASSESSMENT DEPRESSION ASS ESSMENT [facility] Start: 05-19-2021 COVID-19 VACCINE (4 - Booster for Pfizer series) COVID-19 VACCINE (4 - Booster for Pfizer series) [facility] Start: 05-19-2021 COVID-19 VACCINE (4 - Pfizer series) COVID-19 VACCINE (4 - Pfizer series) [facility] Start: 11-26-2013 PNEUMOCOCCAL (2 - PCV) PNEUMOCOCCAL (2 - PCV) [facility] End: 06-01-2023 ECG COMPLETE ECG COMPLETE ECG Routine Type 1 diabetes mellitus without complication (HCC) Mixed hyperlipidemia Morbid obesity with BMI of 40.0-44.9, adult (HCC) Medication management 1 Occurrences starting 06/01/2022 until 06/01/2023 [facility] Work Phone: Comment on above: 1 Occurrences starti ng 06/01/2022 until 06/01/2023 Lipid 1996 panel - S manolo or Plasma [facility] Work Phone: Path report.final Dx Spec [facility] Work Phone: Thyroid stimulating hormone measurement [facility] Work Phone: Urine microalbumin/creatinine ratio measurement [facility] Work Phone: End: 08-25-2025 US.doppler Extremity arteries - bilateral for physiologic artery study [facility] Vascular Lab Routine Callus Hammertoe of right foot Diminished pulses in lower extremity 1 Occurrences starting 08/25/2024 until 08/25/2025 [facility] Work Phone: Comment on above: 1 Occurrences starti ng 08/25/2024 until 08/25/2025 Vitamin D, 25-hydrox y measurement [facility] Work Phone: End: 09-24-2025 XR Foot - right AP and Lateral and oblique XR FOOT GENERAL 3V AP/LAT/OBL RIGHT Radiology Routine Callus Hammertoe of right foot 1 Occurrences starting 08/25/2024 until 09/24/2025 [facility] Comment on above: 1 Occurrences starti ng 08/25/2024 until 09/24/2025 XR Foot - right AP a nd Lateral and oblique XR FOOT GENERAL 3V AP/LAT/OBL RIGHT Radiology Routine Callus Hammertoe of right foot 08/25/2024 11:35 AM EST [facility] Immunizations Immunization Date Immunization Notes Care Provider Gordy richardsmame 02-15-2022 pneumococcal (PCV20) vaccine, 20 valent (PREVNAR 20) Maki Ramirez RESPIRATORY EQUIPMENT ASSISTANT.POWER HAIR CLIPPER Work Phone: [facility] Work Phone: 02-15-2022 pneumococcal Conjuga te, unspecified formulation Maki Ramirez RESPIRATORY EQUIPMENT ASSISTANT.POWER HAIR CLIPPER Work Phone: [facility] Work Phone: 03-31-2021 influenza, seasonal, injectable Maki Ramirez RESPIRATORY EQUIPMENT ASSISTANT.POWER HAIR CLIPPER Work Phone: [facility] 03-31-2021 influenza virus vacc ine, unspecified formulation Ivette Castillo RESPIRATORY EQUIPMENT ASSISTANT.SUGAR PRESSER Work Phone: [facility] 03-29-2020 influenza, seasonal, injectable Maki Ramirez RESPIRATORY EQUIPMENT ASSISTANT.POWER HAIR CLIPPER Work Phone: [facility] 12-17-2017 tuberculin skin test ; purified protein derivative solution, intradermal Maki Ramirez RESPIRATORY EQUIPMENT ASSISTANT.POWER HAIR CLIPPER Work Phone: [facility] 01-07-2017 tuberculin skin test ; purified protein derivative solution, intradermal Maki Ramirez RESPIRATORY EQUIPMENT ASSISTANT.POWER HAIR CLIPPER Work Phone: [facility] 03-14-2016 influenza, injectabl e, quadrivalent, contains preservative Maki Ramirez RESPIRATORY EQUIPMENT ASSISTANT.POWER HAIR CLIPPER Work Phone: [facility] 03-14-2016 tetanus toxoid, redu michael diphtheria toxoid, and acellular pertussis vaccine, adsorbed Maki Ramirez RESPIRATORY EQUIPMENT ASSISTANT.POWER HAIR CLIPPER Work Phone: [facility] 02-01-2016 tuberculin skin test ; purified protein derivative solution, intradermal Maki Ramirez RESPIRATORY EQUIPMENT ASSISTANT.POWER HAIR CLIPPER Work Phone: [facility] 01-25-2016 tuberculin skin test ; purified protein derivative solution, intradermal Maki Ramirez RESPIRATORY EQUIPMENT ASSISTANT.POWER HAIR CLIPPER Work Phone: [facility] 04-07-2013 influenza virus vacc ine, unspecified formulation Maki Ramirez RESPIRATORY EQUIPMENT ASSISTANT.POWER HAIR CLIPPER Work Phone: [facility] Work Phone: 11-26-2012 pneumococcal polysaccharide vaccine, 23 valent Maki Ramirez RESPIRATORY EQUIPMENT ASSISTANT.POWER HAIR CLIPPER Work Phone: [facility] 04-22-2012 influenza virus vacc ine, unspecified formulation Maki Ramirez RESPIRATORY EQUIPMENT ASSISTANT.POWER HAIR CLIPPER Work Phone: [facility] Work Phone: 03-31-2009 influenza virus vacc ine, unspecified formulation Maki Ramirez RESPIRATORY EQUIPMENT ASSISTANT.POWER HAIR CLIPPER Work Phone: [facility] Work Phone: 10-06-2008 human papilloma viru s vaccine, quadrivalent Maki Ramirez RESPIRATORY EQUIPMENT ASSISTANT.POWER HAIR CLIPPER Work Phone: [facility] 05-26-2008 human papilloma viru s vaccine, quadrivalent Maki Ramirez RESPIRATORY EQUIPMENT ASSISTANT.POWER HAIR CLIPPER Work Phone: [facility] Work Phone: 05-26-2008 influenza virus vacc ine, unspecified formulation Maki Ramirez RESPIRATORY EQUIPMENT ASSISTANT.POWER HAIR CLIPPER Work Phone: [facility] Work Phone: 03-25-2008 human papilloma viru s vaccine, quadrivalent Maki Ramirez RESPIRATORY EQUIPMENT ASSISTANT.POWER HAIR CLIPPER Work Phone: [facility] 03-25-2008 Meningococcal, MCV4, unspecified conjugate formulation(groups A, C, Y and W-135) Maki Talaveras RESPIRATORY EQUIPMENT ASSISTANT.POWER HAIR CLIPPER Work Phone: [facility] 08-13-2007 influenza virus vacc ine, unspecified formulation Maki Ramirez RESPIRATORY EQUIPMENT ASSISTANT.POWER HAIR CLIPPER Work Phone: [facility] 07-18-2005 influenza virus vacc ine, unspecified formulation Maki Ramirez RESPIRATORY EQUIPMENT ASSISTANT.POWER HAIR CLIPPER Work Phone: [facility] Work Phone: 01-30-2005 tetanus and diphther ia toxoids, adsorbed, preservative free, for adult use (2 Lf of tetanus toxoid and 2 Lf of diphtheria toxoid) Maki Ramirez RESPIRATORY EQUIPMENT ASSISTANT.POWER HAIR CLIPPER Work Phone: [facility] Work Phone: 11-01-2004 measles, mumps and rubella virus vaccine Maki Ramirez RESPIRATORY EQUIPMENT ASSISTANT.POWER HAIR CLIPPER Work Phone: [facility] Work Phone: 05-24-2003 influenza virus vacc ine, unspecified formulation Maki Ramirez RESPIRATORY EQUIPMENT ASSISTANT.POWER HAIR CLIPPER Work Phone: [facility] Work Phone: 01-13-1994 tuberculin skin test ; purified protein derivative solution, intradermal [facility] RESPIRATORY EQUIPMENT ASSISTANT.POWER HAIR CLIPPER Work Phone: [facility] 1993 diphtheria, tetanus toxoids and pertussis vaccine Maki Ramirez RESPIRATORY EQUIPMENT ASSISTANT.POWER HAIR CLIPPER Work Phone: [facility] Work Phone: 1993 haemophilus influenz ae type b vaccine, conjugate unspecified formulation Maki Ramirez RESPIRATORY EQUIPMENT ASSISTANT.POWER HAIR CLIPPER Work Phone: [facility] Work Phone: 1993 hepatitis B vaccine, pediatric or pediatric/adolescent dosage Maki Ramirez RESPIRATORY EQUIPMENT ASSISTANT.POWER HAIR CLIPPER Work Phone: [facility] Work Phone: 1993 trivalent poliovirus vaccine, live, oral Maki Ramirez RESPIRATORY EQUIPMENT ASSISTANT.POWER HAIR CLIPPER Work Phone: [facility] Work Phone: 1993 diphtheria, tetanus toxoids and pertussis vaccine Maki Ramirez RESPIRATORY EQUIPMENT ASSISTANT.POWER HAIR CLIPPER Work Phone: [facility] Work Phone: 1993 haemophilus influenz ae type b vaccine, conjugate unspecified formulation Maki Ramirez RESPIRATORY EQUIPMENT ASSISTANT.POWER HAIR CLIPPER Work Phone: [facility] Work Phone: 1993 trivalent poliovirus vaccine, live, oral Maki Ramirez RESPIRATORY EQUIPMENT ASSISTANT.POWER HAIR CLIPPER Work Phone: [facility] Work Phone: 1993 diphtheria, tetanus toxoids and pertussis vaccine [facility] RESPIRATORY EQUIPMENT ASSISTANT.POWER HAIR CLIPPER Work Phone: [facility] Work Phone: 1993 haemophilus influenz ae type b vaccine, conjugate unspecified formulation [facility] RESPIRATORY EQUIPMENT ASSISTANT.POWER HAIR CLIPPER Work Phone: [facility] Work Phone: 1993 hepatitis B vaccine, pediatric or pediatric/adolescent dosage [facility] RESPIRATORY EQUIPMENT ASSISTANT.POWER HAIR CLIPPER Work Phone: [facility] Work Phone: 1993 trivalent poliovirus vaccine, live, oral [facility] RESPIRATORY EQUIPMENT ASSISTANT.POWER HAIR CLIPPER Work Phone: [facility] Work Phone: 1993 hepatitis B vaccine, pediatric or pediatric/adolescent dosage [facility] RESPIRATORY EQUIPMENT ASSISTANT.POWER HAIR CLIPPER Work Phone: [facility] Work Phone: Payers Date Payer Category Payer Self-pay [id number] 2023 Private Health Insurance [employer] [id number] 2023 Unknown [id number] 2019 Unknown [id number] 1993 Unknown [id number] [id number] 1993 Unknown [id number] [id number] 1993 Unknown [id number]. 2.651 1993 Unknown [id number]. [id number] 1993 Unknown [id number]. 2.651 [facility] Health [facility] [id number] Unknown [id number] Unknown SARAH [id number] Unknown [id number] Unknown [id number] Unknown [id number] [id number] Unknown [id number] [id number] Unknown [id number] [id number] Unknown [id number] Unknown [id number] Unknown [id number] Unknown [id number] Social History Date Type Detail Facility Start: 10-29-2013 End: 11-24-2024 Tobacco smoking status NHIS Never smoked tobacco [facility] Start: 10-29-2013 End: 11-24-2024 Tobacco use and exposure Smokeless tobacco non-user [facility] Start: 02-07-2022 End: 12-29-2024 Alcohol intake Current non-drinker of alcohol (finding) [facility] Start: 04-02-2020 End: 02-14-2022 History SDOH Alcohol Frequency 1 [facility] Start: 04-02-2020 End: 02-14-2022 History SDOH Social Connections Phone 5 [facility] Start: 04-02-2020 End: 02-14-2022 History SDOH Social Connections Jain 2 [facility] Start: 04-02-2020 End: 02-14-2022 History SDOH Social Connections Meetings 3 [facility] Start: 04-02-2020 End: 02-14-2022 History SDOH Social Connections Living 7 [facility] Start: 04-02-2020 Education 17 [facility] Start: 06-20-2009 End: 02-15-2022 Tobacco Comment outside [facility] Start: 1995 Sex Assigned At Female [facility] Start: 02-14-2022 History SDOH Alcohol Std Drinks 0 [facility] Start: 02-14-2022 History SDOH Physica l Activity MPS 4 [facility] Start: 02-05-2022 End: 02-15-2022 Exposure to SARS-CoV-2 (event) Not sure [facility] Work Phone: Start: 04-18-2022 End: 12-10-2022 Tobacco smoking status NHIS Unknown if ever smoked [facility] Start: 02-14-2022 End: 02-07-2023 History of Social function [facility] Start: 02-14-2022 End: 02-07-2023 Social connection and isolation panel [facility] Do you belong to any clubs or organizations such as restorationist groups, unions, fraternal or athletic groups, or school groups? Yes [facility] Are you now , , , , never or living with a partner? Never [facility] How often to you hav e a drink containing alcohol? Never [facility] How many standard dr inks containing alcohol do you have on a typical day? Patient does not drink [facility] Do you feel stress - tense, restless, nervous, or anxious, or unable to sleep at night because your mind is troubled all the time - these days [OSQ] Only a little [facility] (I/We) worried wheth er (my/our) food would run out before (I/we) got money to buy more. Never true [facility] In the past 12 month s, was there a time when you were not able to pay the mortgage or rent on time? No [facility] Start: 06-15-2020 Gender identity Identifies as female gender (finding) [facility] Do you feel stress - tense, restless, nervous, or anxious, or unable to sleep at night because your mind is troubled all the time - these days [OSQ] Not at all [facility] Medical Equipment Procedure Code Equipment Code Equipment Origin al Text Equipment Identifier Dates Use as directed 3-4 times daily with injections [id number] Start: 12-22-2015 Comment on above: Use as directed 3-4 times daily with injections Blood Sugar Diagnostic (Accu-Chek Guide Test Strips) strip Start: 04-24-2021 Insulin Syringe-Needle U-100 (Bd Insulin Syringe Ultra-Fine) 1 mL 31 gauge x 5/16 syringe Start: 06-11-2017 Lancets (Accu-Ch ek Fastclix Lancet Drum) [facility] [place] Start: 06-09-2021 Blood Sugar Diagnostic (Contour Next Test Strips) strip Start: 06-11-2017 End: 09-08-2018 Blood Sugar Diagnostic (Contour Next Test Strips) strip Start: 04-18-2020 End: 04-24-2021 Blood Sugar Diagnostic (Contour Next Test Strips) strip Start: 09-08-2018 End: 09-08-2018 Blood Sugar Diagnostic (Contour Next Test Strips) strip Start: 09-08-2018 End: 04-18-2020 Blood Sugar Diagnostic (Accu-Chek Guide Test Strips) strip Start: 04-24-2021 Insulin Syringe-Needle U-100 (Bd Insulin Syringe Ultra-Fine) 1 mL 31 gauge x 5/16 syringe Start: 06-11-2017 Lancets (Accu-Ch ek Fastclix Lancet Drum) [facility] [place] Start: 06-09-2021 Blood Sugar Diagnostic (Contour Next Test Strips) strip Start: 06-11-2017 End: 09-08-2018 Blood Sugar Diagnostic (Contour Next Test Strips) strip Start: 04-18-2020 End: 04-24-2021 Blood Sugar Diagnostic (Contour Next Test Strips) strip Start: 09-08-2018 End: 09-08-2018 Blood Sugar Diagnostic (Contour Next Test Strips) strip Start: 09-08-2018 End: 04-18-2020 Blood Sugar Diagnostic (Accu-Chek Guide Test Strips) strip Start: 04-24-2021 Insulin Syringe-Needle U-100 (Bd Insulin Syringe Ultra-Fine) 1 mL 31 gauge x 5/16 syringe Start: 06-11-2017 Lancets (Accu-Ch ek Fastclix Lancet Drum) misc Start: 06-09-2021 Blood Sugar Diagnostic (Contour Next Test Strips) strip Start: 06-11-2017 End: 09-08-2018 Blood Sugar Diagnostic (Contour Next Test Strips) strip Start: 04-18-2020 End: 04-24-2021 Blood Sugar Diagnostic (Contour Next Test Strips) strip Start: 09-08-2018 End: 09-08-2018 Blood Sugar Diagnostic (Contour Next Test Strips) strip Start: 09-08-2018 End: 04-18-2020 Blood Sugar Diagnostic (Accu-Chek Guide Test Strips) strip Start: 04-24-2021 Insulin Syringe-Needle U-100 (Bd Insulin Syringe Ultra-Fine) 1 mL 31 gauge x 5/16 syringe Start: 06-11-2017 Lancets (Accu-Ch ek Fastclix Lancet Drum) misc Start: 06-09-2021 Blood Sugar Diagnostic (Contour Next Test Strips) strip Start: 06-11-2017 End: 09-08-2018 Blood Sugar Diagnostic (Contour Next Test Strips) strip Start: 04-18-2020 End: 04-24-2021 Blood Sugar Diagnostic (Contour Next Test Strips) strip Start: 09-08-2018 End: 09-08-2018 Blood Sugar Diagnostic (Contour Next Test Strips) strip Start: 09-08-2018 End: 04-18-2020 Blood Sugar Diagnostic (Accu-Chek Guide Test Strips) strip Start: 09-14-2022 Insulin Syringe-Needle U-100 (Bd Insulin Syringe Ultra-Fine) 1 mL 31 gauge x 5/16 syringe Start: 06-11-2017 Lancets (Accu-Ch ek Fastclix Lancet Drum) misc Start: 06-09-2021 Blood Sugar Diagnostic (Accu-Chek Guide Test Strips) strip Start: 04-24-2021 End: 09-14-2022 Blood Sugar Diagnostic (Contour Next Test Strips) strip Start: 06-11-2017 End: 09-08-2018 Blood Sugar Diagnostic (Contour Next Test Strips) strip Start: 04-18-2020 End: 04-24-2021 Blood Sugar Diagnostic (Contour Next Test Strips) strip Start: 09-08-2018 End: 09-08-2018 Blood Sugar Diagnostic (Contour Next Test Strips) strip Start: 09-08-2018 End: 04-18-2020 Functional Status Date Assessment Result Facility 10-07-2014 Are you deaf, or do you have serious difficulty hearing No 10/07/2014 2:39 PM EDT Yahaira Rangel LPN No [facility] 10-07-2014 Are you blind, or do you have serious difficulty seeing, even when wearing glasses No 10/07/2014 2:39 PM EDT Yahaira Rangel LPN No [facility] 10-07-2014 Do you have serious difficulty walking or climbing stairs No 10/07/2014 2:39 PM EDT Yahaira Rangel LPN [facility] 10-07-2014 Do you have difficul ty dressing or bathing No 10/07/2014 2:39 PM EDT Yahaira Rangel LPN [facility] 10-07-2014 Because of a physica l, mental, or emotional condition, do you have difficulty doing errands alone such as visiting a physician's office or shopping No 10/07/2014 2:39 PM EDT Yahaira Rangel LPN No [facility] Mental Status Date Assessment Result Facility 10-07-2014 Because of a physica l, mental, or emotional condition, do you have serious difficulty concentrating, remembering, or making decisions No 10/07/2014 2:39 PM EDT Yahaira Rangel LPN No [facility] Clinical Notes 03-10-2015 to 01-07-2025 Elie Carvajal - 01/07/2025 7:54 AM Jocelin Gnog LPN - 01/05/2025 9:53 AM EDTPatient InstructionsElie Carvajal - 12/30/2024 7:41 AM Phyllis Lundberg RN - 12/29/2024 10:03 AM EDT Note Date & Type Note Facility 01-07-2025 History of Presen t illness Narrative FOLLOW UP PODIATRIC OFFICE VISIT Chief Complaint: This 29 year old who presents for follow up:right fifth toe derotational arthroplasty Patient presents to clinic for follow-up right 5th toe derotational arthroplasty She is doing very well. Has been applying steres to the fifth toe. Feels great. Feels like she is progressing very well. PAIN EVALUATION No data found in the last 1 encounters. Hemoglobin A1C Date Value Ref Range Status 02/11/2023 6.4 (H) 4.3 - 5.6 % Final Comment: [place] [employer] guidelines indicate that patients with HgbA1c in the range 5.7-6.4% are at increased risk for development of diabetes, and intervention by lifestyle modification may be beneficial. HgbA1c greater or equal to 6.5% is considered diagnostic of diabetes. PCP: Fe Tolentino MD PAST MEDICAL HISTORY Diagnosis Date Morbid obesity with BMI of 40.0-44.9, adult (HCC) PMH - PAST MEDICAL HISTORY OF menarche at age 8 years Seizure disorder (HCC) none since childhood after treated with Tegretol for 2 years Type 1 diabetes mellitus 07/22/2005 Type (06/24/1999): dx type 1 diabetes. Varicella without mention of complication age 3 or 4 years Current Outpatient Medications Medication Sig topiramate (TOPAMAX) 50 mg tablet Take 50 mg by mouth once daily. Will be taking for 1 week while holding Qsymia per weight mgmt doctor, Dr. Mckeon calcium carbonate 600 mg-cholecalciferol 400 units (CALCIUM 600 + D) 600 mg-10 mcg (400 unit) tab Take 1 tablet by mouth two times a day. QSYMIA 15-92 mg 24 Hr Capsule TAKE ONE CAPSULE BY MOUTH DAILY DIRECTED insulin lispro (HUMALOG) 100 unit/mL injection See Instructions, 120 units daily in insulin pump, # 110 mL, 3 Refill(s), Pharmacy: [facility] atorvastatin (LIPITOR) 20 mg tablet Take 20 mg by mouth five times a week. Takes Saturday-Saturday only empagliflozin (JARDIANCE) 25 mg tablet Take 25 mg by mouth daily with breakfast. insulin needles, DISPOSABLE, (PEN NEEDLE) 31 gauge x 5/16" ndle Use as directed 3-4 times daily with injections glucagon, human recombinant, (GLUCAGON EMERGENCY KIT, HUMAN,) 1 mg injection Inject 1 mg subcutaneously as directed. Dx: E10.9, Uses daily insulin Cholecalciferol, Vitamin D3, 2,000 unit cap Take 2 tablets by mouth once daily. Insulin Sunburst, Disposable, (BD ULTRAFINE III MINI PEN) 31 x 3/16 " Ndle 1 Each three times daily. USE WITH INSULIN PENS syringe w-ndl, disp,insul,1ml(BD INSULIN SYRINGE ULT-FINE II 1 ML 31 X 5/16") Use as directed. No current facility-administered medications for this visit. ALLERGIES Allergen Reactions [place] Hives PAST SURGICAL HISTORY Procedure Laterality Date PAST SURGICAL HISTORY OF Right 2019 right foot x 2 (fracture) TYMPANOSTOMY LOCAL/TOPICAL ANESTHESIA Physical Exam: OBJECTIVE: Constitutional: Pt is a well developed 29 year old female who is alert, oriented, cooperative and in no apparent distress. Eyes: Following during examination. No redness or drainage. Respiratory: RR normal and nonlabored. Even breathing. No evidence of distress. Psychology: Patient is engaged during conversation. Normal affect and mood. Does not appear depressed or anxious. NVSI unchanged from previous visit. Dermatological: Surgical incision to right 5th toe is now healed. No local signs of infection No recurrent callus Musculoskeletal/Orthopaedic: Patient has no pain to palpation of right foot Right 5th toe appears rectus No calf pain noted ASSESSMENT: (Z98.890) Post-operative state (primary encounter diagnosis) (M20.41) Hammertoe of right foot PLAN: Patient is s/p derotational arthroplasty of the right 5th toe. The toe incision is now healed. Can go without dressing I will have patient transition into regular shoe. She was scheduled to return to work in 2 weeks but because her recovery was extended one week because of slow healing of incision, I will extend her time off work until February 05. She is very satisfied with the outcome of the surgery If she has any questions or concerns, she is to contact the office Elie Carvajal DPM AMB ROOMING INTAKE FLOWSHEET DATA Patient presents with: Right Foot - Established Patient, Follow Up, Post Op 25 days s/p Derotational arthroplasty, right fifth toe with possible soft-tissue release if necessary Jocelin Sandy LPN documented in this encounter [facility] 01-07-2025 Note HNO ID: [id number] Author: ELIE CARVAJAL, ? Service: ? Author Type: Physician Type: Progress Notes Filed: 01/07/2025 07:56 Note Text: FOLLOW UP PODIATRIC OFFICE VISIT Chief Complaint: This 29 year old who presents for follow up:right fifth toe derotational arthroplasty Patient presents to clinic for follow-up right 5th toe derotational arthroplasty She is doing very well. Has been applying steres to the fifth toe. Feels great. Feels like she is progressing very well. PAIN EVALUATION No data found in the last 1 encounters. Hemoglobin A1C Date Value Ref Range Status 02/11/2023 6.4 (H) 4.3 - 5.6 % Final Comment: [place] [employer] guidelines indicate that patients with HgbA1c in the range 5.7-6.4% are at increased risk for development of diabetes, and intervention by lifestyle modification may be beneficial. HgbA1c greater or equal to 6.5% is considered diagnostic of diabetes. PCP: Fe Tolentino MD PAST MEDICAL HISTORY Diagnosis Date Morbid obesity with BMI of 40.0-44.9, adult (HCC) PMH - PAST MEDICAL HISTORY OF menarche at age 8 years Seizure disorder (HCC) none since childhood after treated with Tegretol for 2 years Type 1 diabetes mellitus 07/22/2005 Type (06/24/1999): dx type 1 diabetes. Varicella without mention of complication age 3 or 4 years Current Outpatient Medications Medication Sig topiramate (TOPAMAX) 50 mg tablet Take 50 mg by mouth once daily. Will be taking for 1 week while holding Qsymia per weight mgmt doctor, Dr. Mckeon calcium carbonate 600 mg-cholecalciferol 400 units (CALCIUM 600 + D) 600 mg-10 mcg (400 unit) tab Take 1 tablet by mouth two times a day. QSYMIA 15-92 mg 24 Hr Capsule TAKE ONE CAPSULE BY MOUTH DAILY DIRECTED insulin lispro (HUMALOG) 100 unit/mL injection See Instructions, 120 units daily in insulin pump, # 110 mL, 3 Refill(s), Pharmacy: [facility] atorvastatin (LIPITOR) 20 mg tablet Take 20 mg by mouth five times a week. Takes Saturday-Saturday only empagliflozin (JARDIANCE) 25 mg tablet Take 25 mg by mouth daily with breakfast. insulin needles, DISPOSABLE, (PEN NEEDLE) 31 gauge x 5/16" ndle Use as directed 3-4 times daily with injections glucagon, human recombinant, (GLUCAGON EMERGENCY KIT, HUMAN,) 1 mg injection Inject 1 mg subcutaneously as directed. Dx: E10.9, Uses daily insulin Cholecalciferol, Vitamin D3, 2,000 unit cap Take 2 tablets by mouth once daily. Insulin Sunburst, Disposable, (BD ULTRAFINE III MINI PEN) 31 x 3/16 " Ndle 1 Each three times daily. USE WITH INSULIN PENS syringe w-ndl, disp,insul,1ml(BD INSULIN SYRINGE ULT-FINE II 1 ML 31 X 5/16") Use as directed. No current facility-administered medications for this visit. ALLERGIES Allergen Reactions [place] Hives PAST SURGICAL HISTORY Procedure Laterality Date PAST SURGICAL HISTORY OF Right 2019 right foot x 2 (fracture) TYMPANOSTOMY LOCAL/TOPICAL ANESTHESIA Physical Exam: OBJECTIVE: Constitutional: Pt is a well developed 29 year old female who is alert, oriented, cooperative and in no apparent distress. Eyes: Following during examination. No redness or drainage. Respiratory: RR normal and nonlabored. Even breathing. No evidence of distress. Psychology: Patient is engaged during conversation. Normal affect and mood. Does not appear depressed or anxious. NVSI unchanged from previous visit. Dermatological: Surgical incision to right 5th toe is now healed. No local signs of infection No recurrent callus Musculoskeletal/Orthopaedic: Patient has no pain to palpation of right foot Right 5th toe appears rectus No calf pain noted ASSESSMENT: (Z98.890) Post-operative state (primary encounter diagnosis) (M20.41) Hammertoe of right foot PLAN: Patient is s/p derotational arthroplasty of the right 5th toe. The toe incision is now healed. Can go without dressing I will have patient transition into regular shoe. She was scheduled to return to work in 2 weeks but because her recovery was extended one week because of slow healing of incision, I will extend her time off work until February 05. She is very satisfied with the outcome of the surgery If she has any questions or concerns, she is to contact the office Elie Carvajal DPM [facility] 01-05-2025 Instructions Elie Carvajal - 01/05/2025 10:10 AM EDT Your incision is now healed. At this time, I am ok with you showering. After shower, dry foot thoroughly and apply small amount of moisturizing lotion on feet. Ok to transition into wider tennis shoe, ie hoka, ramirez or asics. You no longer need the steres strips. If the toe were to become dry and crack, you can always reinforce at that time. Will update paperwork to allow return to work on February 05 Call if any questions arise. Can follow-up in 2 weeks to see how you are doing Elie Carvajal DPM documented in this encounter [facility] 01-05-2025 Note HNO ID: [id number] Author: JOCELIN SANDY LPN Service: ? Author Type: LICENSED NURSE Type: Progress Notes Filed: 01/07/2025 07:56 Note Text: AMB ROOMING INTAKE FLOWSHEET DATA Patient presents with: Right Foot - Established Patient, Follow Up, Post Op 25 days s/p Derotational arthroplasty, right fifth toe with possible soft-tissue release if necessary Jocelin Sandy LPN [facility] 12-30-2024 Note HNO ID: [id number] Author: ELIE CARVAJAL, ? Service: ? Author Type: Physician Type: Progress Notes Filed: 12/30/2024 07:43 Note Text: This 29 year old presents post op right 5th toe derotational arthroplasty Pain level: 0/10 Vomiting, fever, chills, shortness of breath: no Pain Control: none Weightbearing status: full weightbearing 6.4 - 02/11/2023 PAST MEDICAL HISTORY Diagnosis Date Morbid obesity with BMI of 40.0-44.9, adult (HCC) PMH - PAST MEDICAL HISTORY OF menarche at age 8 years Seizure disorder (HCC) none since childhood after treated with Tegretol for 2 years Type 1 diabetes mellitus 07/22/2005 Type (06/24/1999): dx type 1 diabetes. Varicella without mention of complication age 3 or 4 years Current Outpatient Medications Medication Sig topiramate (TOPAMAX) 50 mg tablet Take 50 mg by mouth once daily. Will be taking for 1 week while holding Qsymia per weight mgmt doctor, Dr. Mckeon calcium carbonate 600 mg-cholecalciferol 400 units (CALCIUM 600 + D) 600 mg-10 mcg (400 unit) tab Take 1 tablet by mouth two times a day. QSYMIA 15-92 mg 24 Hr Capsule TAKE ONE CAPSULE BY MOUTH DAILY DIRECTED insulin lispro (HUMALOG) 100 unit/mL injection See Instructions, 120 units daily in insulin pump, # 110 mL, 3 Refill(s), Pharmacy: [facility] atorvastatin (LIPITOR) 20 mg tablet Take 20 mg by mouth five times a week. Takes Saturday-Saturday only empagliflozin (JARDIANCE) 25 mg tablet Take 25 mg by mouth daily with breakfast. insulin needles, DISPOSABLE, (PEN NEEDLE) 31 gauge x 5/16" ndle Use as directed 3-4 times daily with injections glucagon, human recombinant, (GLUCAGON EMERGENCY KIT, HUMAN,) 1 mg injection Inject 1 mg subcutaneously as directed. Dx: E10.9, Uses daily insulin Cholecalciferol, Vitamin D3, 2,000 unit cap Take 2 tablets by mouth once daily. Insulin Sunburst, Disposable, (BD ULTRAFINE III MINI PEN) 31 x 3/16 " Ndle 1 Each three times daily. USE WITH INSULIN PENS syringe w-ndl, disp,insul,1ml(BD INSULIN SYRINGE ULT-FINE II 1 ML 31 X 5/16") Use as directed. No current facility-administered medications for this visit. ALLERGIES Allergen Reactions [place] Hives Objective: Incision site is well coapted with no evidence of dehiscence. Suture was removed. There is very superficial separation along medial incision. No deep dehiscence. No signs of infection. No drainage. No lymphadenopathy. No lymphangitis. No surrounding cellulitis. Right 5th toe appears rectus Patient has no pain to palpation of right calf. Negative Estrada's test. Assessment: (Z98.890) Post-operative state (primary encounter diagnosis) (M20.41) Hammertoe of right foot Plan: Patient is 18 days s/p derotational arthroplasty. She is doing well. I removed the suture today. There is very superficial separation along medial incision for which I will treat with steres strips for the next week. She can continue with dressing change every 2 days. Her toe is now rectus and she is very happy/satisfied with outcome I will have her follow-up in one week at which time I will discuss transition to shoe pending appearance of foot. Elie Carvajal DPM [facility] 12-30-2024 History of Presen t illness Narrative This 29 year old presents post op right 5th toe derotational arthroplasty Pain level: 0/10 Vomiting, fever, chills, shortness of breath: no Pain Control: none Weightbearing status: full weightbearing 6.4 - 02/11/2023 PAST MEDICAL HISTORY Diagnosis Date Morbid obesity with BMI of 40.0-44.9, adult (HCC) PMH - PAST MEDICAL HISTORY OF menarche at age 8 years Seizure disorder (HCC) none since childhood after treated with Tegretol for 2 years Type 1 diabetes mellitus 07/22/2005 Type (06/24/1999): dx type 1 diabetes. Varicella without mention of complication age 3 or 4 years Current Outpatient Medications Medication Sig topiramate (TOPAMAX) 50 mg tablet Take 50 mg by mouth once daily. Will be taking for 1 week while holding Qsymia per weight mgmt doctor, Dr. Mckeon calcium carbonate 600 mg-cholecalciferol 400 units (CALCIUM 600 + D) 600 mg-10 mcg (400 unit) tab Take 1 tablet by mouth two times a day. QSYMIA 15-92 mg 24 Hr Capsule TAKE ONE CAPSULE BY MOUTH DAILY DIRECTED insulin lispro (HUMALOG) 100 unit/mL injection See Instructions, 120 units daily in insulin pump, # 110 mL, 3 Refill(s), Pharmacy: [facility] atorvastatin (LIPITOR) 20 mg tablet Take 20 mg by mouth five times a week. Takes Saturday-Saturday only empagliflozin (JARDIANCE) 25 mg tablet Take 25 mg by mouth daily with breakfast. insulin needles, DISPOSABLE, (PEN NEEDLE) 31 gauge x 5/16" ndle Use as directed 3-4 times daily with injections glucagon, human recombinant, (GLUCAGON EMERGENCY KIT, HUMAN,) 1 mg injection Inject 1 mg subcutaneously as directed. Dx: E10.9, Uses daily insulin Cholecalciferol, Vitamin D3, 2,000 unit cap Take 2 tablets by mouth once daily. Insulin Sunburst, Disposable, (BD ULTRAFINE III MINI PEN) 31 x 3/16 " Ndle 1 Each three times daily. USE WITH INSULIN PENS syringe w-ndl, disp,insul,1ml(BD INSULIN SYRINGE ULT-FINE II 1 ML 31 X 5/16") Use as directed. No current facility-administered medications for this visit. ALLERGIES Allergen Reactions [place] Hives Objective: Incision site is well coapted with no evidence of dehiscence. Suture was removed. There is very superficial separation along medial incision. No deep dehiscence. No signs of infection. No drainage. No lymphadenopathy. No lymphangitis. No surrounding cellulitis. Right 5th toe appears rectus Patient has no pain to palpation of right calf. Negative Estrada's test. Assessment: (Z98.890) Post-operative state (primary encounter diagnosis) (M20.41) Hammertoe of right foot Plan: Patient is 18 days s/p derotational arthroplasty. She is doing well. I removed the suture today. There is very superficial separation along medial incision for which I will treat with steres strips for the next week. She can continue with dressing change every 2 days. Her toe is now rectus and she is very happy/satisfied with outcome I will have her follow-up in one week at which time I will discuss transition to shoe pending appearance of foot. Elie Carvajal DPM Post op dressing applied to right foot. Gauze between 4th and 5th toes, 5th toe splinted with gauze and wrapped with gauze wrap. Secured with amara wrap. Post-op wound care reviewed with patient and printed copy provided. Patient verbalized understanding at this time. Dressing supplies provided to patient. AMB ROOMING INTAKE FLOWSHEET DATA Patient presents with: Right Foot - Established Patient, Follow Up, Pain, Post Op Patient presents to office for s/p Derotational arthroplasty, right fifth toe with possible soft-tissue release if necessary. No pain unless foot swells after over doing it. Jocelin Sandy LPN documented in this encounter [facility] 12-29-2024 Note HNO ID: [id number] Author: PHYLLIS PORRAS, RN Service: ? Author Type: Registered Nurse Type: Progress Notes Filed: 12/30/2024 07:43 Note Text: Post op dressing applied to right foot. Gauze between 4th and 5th toes, 5th toe splinted with gauze and wrapped with gauze wrap. Secured with amara wrap. Post-op wound care reviewed with patient and printed copy provided. Patient verbalized understanding at this time. Dressing supplies provided to patient. [facility] 12-29-2024 Instructions Elie Carvajal - 12/29/2024 9:37 AM EDT You are 18 days post-op from derotational arthroplasty of the right 5th toe. Suture was removed today. Small degree of skin thickening was debrided. You have a very superficial, noninfected wound that was dressed with steres strips. Leave these on for one more week. Will plan to remove next week. If the steres should happen to fall off, you can reapply by applying skin prep to the periphery of the wound and apply two strips across the surgical incision. Keep this dry until healed, likely by next week Continue to keep guaze on the toe as currently doing Continue with post-op shoe for one more week Follow-up in 1 week just to confirm final healing. If you have any questions, please do not hesitate to contact me at [phone] Elie Carvajal DPM documented in this encounter [facility] 12-29-2024 Note HNO ID: [id number] Author: JOCELIN SANDY LPN Service: ? Author Type: LICENSED NURSE Type: Progress Notes Filed: 12/30/2024 07:43 Note Text: AMB ROOMING INTAKE FLOWSHEET DATA Patient presents with: Right Foot - Established Patient, Follow Up, Pain, Post Op Patient presents to office for s/p Derotational arthroplasty, right fifth toe with possible soft-tissue release if necessary. No pain unless foot swells after over doing it. Jocelin Sandy LPN [facility] 12-22-2024 Note HNO ID: [id number] Author: PHYLLIS PORRAS RN Service: ? Author Type: Registered Nurse Type: Progress Notes Filed: 12/22/2024 08:54 Note Text: Post op dressing applied to Right foot. Adaptic, nonadherent gauze and gauze wrap. Secured with amara wrap. Post-op wound care reviewed with patient and printed copy provided. Patient verbalized understanding at this time. [facility] 12-22-2024 History of Presen t illness Narrative Post op dressing applied to Right foot. Adaptic, nonadherent gauze and gauze wrap. Secured with amara wrap. Post-op wound care reviewed with patient and printed copy provided. Patient verbalized understanding at this time. This 29 year old presents post op right 5th toe derotational arthroplasty Pain level: minimal. No longer taking pain medication Vomiting, fever, chills, shortness of breath: none Pain Control: patient is taking tylenol as needed Weightbearing status: weightbearing in post-op shoe 6.4 - 02/11/2023 PAST MEDICAL HISTORY Diagnosis Date Morbid obesity with BMI of 40.0-44.9, adult (HCC) PMH - PAST MEDICAL HISTORY OF menarche at age 8 years Seizure disorder ([facility]) none since childhood after treated with Tegretol for 2 years Type 1 diabetes mellitus 07/22/2005 Type (06/24/1999): dx type 1 diabetes. Varicella without mention of complication age 3 or 4 years Current Outpatient Medications Medication Sig topiramate (TOPAMAX) 50 mg tablet Take 50 mg by mouth once daily. Will be taking for 1 week while holding Qsymia per weight mgmt doctor, Dr. Mckeon calcium carbonate 600 mg-cholecalciferol 400 units (CALCIUM 600 + D) 600 mg-10 mcg (400 unit) tab Take 1 tablet by mouth two times a day. QSYMIA 15-92 mg 24 Hr Capsule TAKE ONE CAPSULE BY MOUTH DAILY DIRECTED insulin lispro (HUMALOG) 100 unit/mL injection See Instructions, 120 units daily in insulin pump, # 110 mL, 3 Refill(s), Pharmacy: [facility] atorvastatin (LIPITOR) 20 mg tablet Take 20 mg by mouth five times a week. Takes Saturday-Saturday only empagliflozin (JARDIANCE) 25 mg tablet Take 25 mg by mouth daily with breakfast. insulin needles, DISPOSABLE, (PEN NEEDLE) 31 gauge x 5/16" ndle Use as directed 3-4 times daily with injections glucagon, human recombinant, (GLUCAGON EMERGENCY KIT, HUMAN,) 1 mg injection Inject 1 mg subcutaneously as directed. Dx: E10.9, Uses daily insulin Cholecalciferol, Vitamin D3, 2,000 unit cap Take 2 tablets by mouth once daily. Insulin Sunburst, Disposable, (BD ULTRAFINE III MINI PEN) 31 x 3/16 " Ndle 1 Each three times daily. USE WITH INSULIN PENS syringe w-ndl, disp,insul,1ml(BD INSULIN SYRINGE ULT-FINE II 1 ML 31 X 5/16") Use as directed. No current facility-administered medications for this visit. ALLERGIES Allergen Reactions [place] Hives Objective: Incision site is well coapted with no evidence of dehiscence. Mild erythema and edema surrounding surgical site. No drainage. No lymphadenopathy. No lymphangitis. No surrounding cellulitis. Right 5th toe appears rectus. Slight hammertoe of 4th toe without pain Patient has no pain to palpation of right calf. Negative Estrada's test. Assessment: (Z98.890) Post-operative state (primary encounter diagnosis) (M20.41) Hammertoe of right foot Plan: Bandage removed and new dressing applied. Sutures: possible removal next week Patient is doing very well. I educated patient on proper bandaging of the toe to help splint the toe in a rectus position. The right 5th toe is now rectus. Patient is very pleased with outcome. She does have slight contracture of the 4th toe but she has no pain with this. Weightbearing status: ok to ambulate with surgical shoe as tolerated RTC 1 week Elie Carvajal DPM Patient presents with: Right Foot - Established Patient, Follow Up, Post Op, Pain Patient presents for 11 day post-op visit for derotational arthroplasty of right 5th toe. States that she has minimal pain, and that it is mostly related to swelling. Ambulating in a post op shoe. Has not needed to take Percocet since 12/14/24. Dressing clean dry and intact. Slight bruising still noted to the foot. MARTIR 12/15/24 documented in this encounter [facility] 12-22-2024 Instructions Elie Carvajal - 12/22/2024 8:28 AM EDT Your foot is looking very well. Your incision is healing nicely without signs of infection I would have you continue with bandage change every 2 days. Apply adaptic to the incision Apply guaze between the 4th and 5th toes and then cover the fifth toe. Do not pull out on the fifth toe. Splint the 5th toe so that the toe is straight. Keep the toe clean and dry. Do not get wet. If you need anything, please do not hesitate to contact me. Elie Carvajal DPM documented in this encounter [facility] 12-22-2024 Note HNO ID: [id number] Author: ELIE CARVAJAL, ? Service: ? Author Type: Physician Type: Progress Notes Filed: 12/22/2024 08:54 Note Text: This 29 year old presents post op right 5th toe derotational arthroplasty Pain level: minimal. No longer taking pain medication Vomiting, fever, chills, shortness of breath: none Pain Control: patient is taking tylenol as needed Weightbearing status: weightbearing in post-op shoe 6.4 - 02/11/2023 PAST MEDICAL HISTORY Diagnosis Date Morbid obesity with BMI of 40.0-44.9, adult (HCC) PMH - PAST MEDICAL HISTORY OF menarche at age 8 years Seizure disorder (HCC) none since childhood after treated with Tegretol for 2 years Type 1 diabetes mellitus 07/22/2005 Type (06/24/1999): dx type 1 diabetes. Varicella without mention of complication age 3 or 4 years Current Outpatient Medications Medication Sig topiramate (TOPAMAX) 50 mg tablet Take 50 mg by mouth once daily. Will be taking for 1 week while holding Qsymia per weight mgmt doctor, Dr. Mckeon calcium carbonate 600 mg-cholecalciferol 400 units (CALCIUM 600 + D) 600 mg-10 mcg (400 unit) tab Take 1 tablet by mouth two times a day. QSYMIA 15-92 mg 24 Hr Capsule TAKE ONE CAPSULE BY MOUTH DAILY DIRECTED insulin lispro (HUMALOG) 100 unit/mL injection See Instructions, 120 units daily in insulin pump, # 110 mL, 3 Refill(s), Pharmacy: [facility] atorvastatin (LIPITOR) 20 mg tablet Take 20 mg by mouth five times a week. Takes Saturday-Saturday only empagliflozin (JARDIANCE) 25 mg tablet Take 25 mg by mouth daily with breakfast. insulin needles, DISPOSABLE, (PEN NEEDLE) 31 gauge x 5/16" ndle Use as directed 3-4 times daily with injections glucagon, human recombinant, (GLUCAGON EMERGENCY KIT, HUMAN,) 1 mg injection Inject 1 mg subcutaneously as directed. Dx: E10.9, Uses daily insulin Cholecalciferol, Vitamin D3, 2,000 unit cap Take 2 tablets by mouth once daily. Insulin Sunburst, Disposable, (BD ULTRAFINE III MINI PEN) 31 x 3/16 " Ndle 1 Each three times daily. USE WITH INSULIN PENS syringe w-ndl, disp,insul,1ml(BD INSULIN SYRINGE ULT-FINE II 1 ML 31 X 5/16") Use as directed. No current facility-administered medications for this visit. ALLERGIES Allergen Reactions [place] Hives Objective: Incision site is well coapted with no evidence of dehiscence. Mild erythema and edema surrounding surgical site. No drainage. No lymphadenopathy. No lymphangitis. No surrounding cellulitis. Right 5th toe appears rectus. Slight hammertoe of 4th toe without pain Patient has no pain to palpation of right calf. Negative Estrada's test. Assessment: (Z98.890) Post-operative state (primary encounter diagnosis) (M20.41) Hammertoe of right foot Plan: Bandage removed and new dressing applied. Sutures: possible removal next week Patient is doing very well. I educated patient on proper bandaging of the toe to help splint the toe in a rectus position. The right 5th toe is now rectus. Patient is very pleased with outcome. She does have slight contracture of the 4th toe but she has no pain with this. Weightbearing status: ok to ambulate with surgical shoe as tolerated RTC 1 week Elie Carvajal DPM [facility] 12-22-2024 Note HNO ID: [id number] Author: PHYLLIS PORRAS, RN Service: ? Author Type: Registered Nurse Type: Progress Notes Filed: 12/22/2024 08:54 Note Text: Patient presents with: Right Foot - Established Patient, Follow Up, Post Op, Pain Patient presents for 11 day post-op visit for derotational arthroplasty of right 5th toe. States that she has minimal pain, and that it is mostly related to swelling. Ambulating in a post op shoe. Has not needed to take Percocet since 12/14/24. Dressing clean dry and intact. Slight bruising still noted to the foot. MARTIR 12/15/24 [facility] 12-15-2024 Note HNO ID: [id number] Author: JOCELIN SANDY LPN Service: ? Author Type: LICENSED NURSE Type: Progress Notes Filed: 12/15/2024 08:53 Note Text: Per Pauly Moreno surgical site was dressed with iodine, adaptic. Non adherent, 4x4 woven gauze splinting toe with 4 in conforming gauze and amara wrap. instructed/educated in its application, wear, and care. All questions were answered, and patient was able to demonstrate competence with the necessary skills to utilize the above equipment. Jocelin Sandy LPN [facility] 12-15-2024 History of Presen t illness Narrative Per Pauly Moreno surgical site was dressed with iodine, adaptic. Non adherent, 4x4 woven gauze splinting toe with 4 in conforming gauze and amara wrap. instructed/educated in its application, wear, and care. All questions were answered, and patient was able to demonstrate competence with the necessary skills to utilize the above equipment. Jocelin Sandy LPN DOS: 12/11/24 POD: 4 POV: 1 Surgical side: right This 29 year old presents post op derotational arthroplasty Pain level: 3/10 Vomiting, fever, chills, shortness of breath: no Pain Control: tylenol Weightbearing status: weightbearing in post-op shoe 6.4 - 02/11/2023 PAST MEDICAL HISTORY Diagnosis Date Morbid obesity with BMI of 40.0-44.9, adult (HCC) PMH - PAST MEDICAL HISTORY OF menarche at age 8 years Seizure disorder (HCC) none since childhood after treated with Tegretol for 2 years Type 1 diabetes mellitus 07/22/2005 Type (06/24/1999): dx type 1 diabetes. Varicella without mention of complication age 3 or 4 years Current Outpatient Medications Medication Sig oxyCODONE-acetaminophen (PERCOCET) 5-325 mg tablet Take 1 tablet by mouth every 6 hours as needed for up to 7 days. amoxicillin-clavulanate potassium (AUGMENTIN) 875-125 mg per tablet Take 1 tablet by mouth two times a day for 7 days. topiramate (TOPAMAX) 50 mg tablet Take 50 mg by mouth once daily. Will be taking for 1 week while holding Qsymia per weight mgmt doctor, Dr. Mckeon calcium carbonate 600 mg-cholecalciferol 400 units (CALCIUM 600 + D) 600 mg-10 mcg (400 unit) tab Take 1 tablet by mouth two times a day. QSYMIA 15-92 mg 24 Hr Capsule TAKE ONE CAPSULE BY MOUTH DAILY DIRECTED insulin lispro (HUMALOG) 100 unit/mL injection See Instructions, 120 units daily in insulin pump, # 110 mL, 3 Refill(s), Pharmacy: [facility] atorvastatin (LIPITOR) 20 mg tablet Take 20 mg by mouth five times a week. Takes Saturday-Saturday only empagliflozin (JARDIANCE) 25 mg tablet Take 25 mg by mouth daily with breakfast. insulin needles, DISPOSABLE, (PEN NEEDLE) 31 gauge x 5/16" ndle Use as directed 3-4 times daily with injections glucagon, human recombinant, (GLUCAGON EMERGENCY KIT, HUMAN,) 1 mg injection Inject 1 mg subcutaneously as directed. Dx: E10.9, Uses daily insulin Cholecalciferol, Vitamin D3, 2,000 unit cap Take 2 tablets by mouth once daily. Insulin Sunburst, Disposable, (BD ULTRAFINE III MINI PEN) 31 x 3/16 " Ndle 1 Each three times daily. USE WITH INSULIN PENS syringe w-ndl, disp,insul,1ml(BD INSULIN SYRINGE ULT-FINE II 1 ML 31 X 5/16") Use as directed. No current facility-administered medications for this visit. ALLERGIES Allergen Reactions [place] Hives Objective: Incision site is well coapted with no evidence of dehiscence. Mild erythema and edema surrounding surgical site. No drainage. No lymphadenopathy. No lymphangitis. No surrounding cellulitis. Right 5th toe is now rectus Patient has no pain to palpation of right calf. Negative Estrada's test. Assessment: (M20.41) Hammertoe of right foot (primary encounter diagnosis) (Z98.890) Post-operative state Plan: Bandage removed and new dressing applied. Patient toe is now rectus. Will have patient splint the toe with dressing. She was instructed on how to do this. She was provided dressing supplies and will change dressing every 2-3 days. Sutures: plan for removal in 2 weeks or around 21 days pending healing Weightbearing status: weightbearing in post-op shoe RTC 1 week Elie Carvajal DPM AMB ROOMING INTAKE FLOWSHEET DATA Pain Pain Level: 3 Pain Location: Incisional Description: Tenderness Duration Amount of Time: 4 Duration Units: Days Frequency: Intermittent Intervention/Comfort measure: Medication, Reposition, Relaxation Patient presents with: Right Foot - Established Patient, Follow Up, Post Op, Swelling, Pain Last took percocet on 12/14/2024 in afternoon. Patient states she took tylenol 1000 mg at 7 AM. documented in this encounter [facility] 12-15-2024 Note HNO ID: [id number] Author: ELIE CARVAJAL, ? Service: ? Author Type: Physician Type: Progress Notes Filed: 12/15/2024 08:43 Note Text: DOS: 12/11/24 POD: 4 POV: 1 Surgical side: right This 29 year old presents post op derotational arthroplasty Pain level: 3/10 Vomiting, fever, chills, shortness of breath: no Pain Control: tylenol Weightbearing status: weightbearing in post-op shoe 6.4 - 02/11/2023 PAST MEDICAL HISTORY Diagnosis Date Morbid obesity with BMI of 40.0-44.9, adult (HCC) PMH - PAST MEDICAL HISTORY OF menarche at age 8 years Seizure disorder (HCC) none since childhood after treated with Tegretol for 2 years Type 1 diabetes mellitus 07/22/2005 Type (06/24/1999): dx type 1 diabetes. Varicella without mention of complication age 3 or 4 years Current Outpatient Medications Medication Sig oxyCODONE-acetaminophen (PERCOCET) 5-325 mg tablet Take 1 tablet by mouth every 6 hours as needed for up to 7 days. amoxicillin-clavulanate potassium (AUGMENTIN) 875-125 mg per tablet Take 1 tablet by mouth two times a day for 7 days. topiramate (TOPAMAX) 50 mg tablet Take 50 mg by mouth once daily. Will be taking for 1 week while holding Qsymia per weight mgmt doctor, Dr. Mckeon calcium carbonate 600 mg-cholecalciferol 400 units (CALCIUM 600 + D) 600 mg-10 mcg (400 unit) tab Take 1 tablet by mouth two times a day. QSYMIA 15-92 mg 24 Hr Capsule TAKE ONE CAPSULE BY MOUTH DAILY DIRECTED insulin lispro (HUMALOG) 100 unit/mL injection See Instructions, 120 units daily in insulin pump, # 110 mL, 3 Refill(s), Pharmacy: [facility] atorvastatin (LIPITOR) 20 mg tablet Take 20 mg by mouth five times a week. Takes Saturday-Saturday only empagliflozin (JARDIANCE) 25 mg tablet Take 25 mg by mouth daily with breakfast. insulin needles, DISPOSABLE, (PEN NEEDLE) 31 gauge x 5/16" ndle Use as directed 3-4 times daily with injections glucagon, human recombinant, (GLUCAGON EMERGENCY KIT, HUMAN,) 1 mg injection Inject 1 mg subcutaneously as directed. Dx: E10.9, Uses daily insulin Cholecalciferol, Vitamin D3, 2,000 unit cap Take 2 tablets by mouth once daily. Insulin Sunburst, Disposable, (BD ULTRAFINE III MINI PEN) 31 x 3/16 " Ndle 1 Each three times daily. USE WITH INSULIN PENS syringe w-ndl, disp,insul,1ml(BD INSULIN SYRINGE ULT-FINE II 1 ML 31 X 5/16") Use as directed. No current facility-administered medications for this visit. ALLERGIES Allergen Reactions [place] Hives Objective: Incision site is well coapted with no evidence of dehiscence. Mild erythema and edema surrounding surgical site. No drainage. No lymphadenopathy. No lymphangitis. No surrounding cellulitis. Right 5th toe is now rectus Patient has no pain to palpation of right calf. Negative Estrada's test. Assessment: (M20.41) Hammertoe of right foot (primary encounter diagnosis) (Z98.890) Post-operative state Plan: Bandage removed and new dressing applied. Patient toe is now rectus. Will have patient splint the toe with dressing. She was instructed on how to do this. She was provided dressing supplies and will change dressing every 2-3 days. Sutures: plan for removal in 2 weeks or around 21 days pending healing Weightbearing status: weightbearing in post-op shoe RTC 1 week Elie Carvajal DPM [facility] 12-15-2024 Instructions Elie Carvajal - 12/15/2024 8:35 AM EDT Your foot appears very well. Continue to keep dry. Do not get wet. Continue with post-op shoe. Ok to ambulate in surgical shoe. Due to anticipated moisture with perspiration, ok to change dressing every 2-3 days Apply betadine to the incision Apply adaptic to incision Followed by guaze splinting the toe straight Secure with amara wrap Can take aspirin twice daily If you have any questions, contact the office at [phone] or mahadke at [phone] documented in this encounter [facility] 12-15-2024 Note HNO ID: [id number] Author: JOCELIN SANDY LPN Service: ? Author Type: LICENSED NURSE Type: Progress Notes Filed: 12/15/2024 08:43 Note Text: AMB ROOMING INTAKE FLOWSHEET DATA Pain Pain Level: 3 Pain Location: Incisional Description: Tenderness Duration Amount of Time: 4 Duration Units: Days Frequency: Intermittent Intervention/Comfort measure: Medication, Reposition, Relaxation Patient presents with: Right Foot - Established Patient, Follow Up, Post Op, Swelling, Pain Last took percocet on 12/14/2024 in afternoon. Patient states she took tylenol 1000 mg at 7 AM. [facility] 12-11-2024 Telephone encounter Note Called patient this evening. She is doing very well s/p derotational arthroplasty. She had all questions answered. She will continue with post-op shoe. She will follow-up with me later next week Elie Carvajal DPM [facility] 12-11-2024 Miscellaneous Notes Called patient this evening. She is doing very well s/p derotational arthroplasty. She had all questions answered. She will continue with post-op shoe. She will follow-up with me later next week Elie Carvajal DPM documented in this encounter [facility] 12-11-2024 Note HNO ID: [id number] Author: CÉSAR MERCER SRNA Service: ? 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 Staffing SRNA: César Mercer SRNA Performed by: HINA Indications and Patient Condition Indications for airway management: anesthesia Preoxygenated: yes anesthesia circuit Patient position: sniffing Method: asleep Final Airway Details Final airway type: supraglottic airway Number of attempts at approach: 1 Final Supraglottic Airway: i-gel Size 3 Seal Adequate: yes Failed airway: no Unrecognized esophageal intubation: no Airway not difficult SIGNATURE: HINA Farris PATIENT NAME: Pauly Whitehead DATE: December 11, 2024 TIME: 8:22 AM CSN: [id number] [facility] 11-24-2024 History and physical note Images from the original note were not included. [facility] HISTORY AND PHYSICAL EXAMINATION SERVICE DATE: 11/24/2024 SERVICE TIME: 1:27 PM PRIMARY CARE PHYSICIAN: Fe Tolentino MD Assessment Patient has the following medical conditions which may affect casey-operative course: History of seizures Assessment: Remote hx as a child, related to hypoglycemia. Was on Tegretol x 2 years. No recurrence of seizures since childhood. Mixed hyperlipidemia Assessment: Managed on Lipitor 5 days/week per mosaic tiler. Type 1 diabetes mellitus without complication (HCC) Assessment: Managed with insulin pump and Jardiance. FBS 120-140s. A1C 7.0% 06/2024. Managed by endocrinology at [facility], Dr. Harvey Andrew. Per PACC guidelines, patient was instructed to continue at same basal rate DOS. Patient was also instructed to inform DOS team of insulin pump. Class 1 obesity with body mass index (BMI) of 30.0 to 30.9 in adult Assessment: Pt reports 80 lb weight loss in the past 3 years on Qsymia, managed by weight mgmt in [place], Dr. Mckeon. Pt reports that she discussed upcoming procedure with Dr. Mckeon, and has been instructed to hold Qsymia for 7 days prior to upcoming surgery, and to take topiramate 50 mg BID while holding Qysmia. Pt instructed to take topiramate DOS. ANESTHESIA FINDINGS: Intubation History: No history of difficult intubation. No abnormal airway history Significant Anesthesia Considerations: none Airway History: No history of difficult airway No abnormal airway history Mitchell Activity Status Index: METS: Walk indoors, such as around the house (1.75 METs) Do light work around the house, such as dusting or washing dishes (2.70 METs) Take care of self; that is eating, dressing, bathing, using the toilet (2.75 METs) Walk a block or two on level ground (2.75 METs) Do moderate work around the house, such as vacuuming, sweeping floors, or carrying in groceries (3.50 METs) Do yardwork, such as raking leaves, weeding, or pushing a power mower (4.50 METs) Climb a flight of stairs or walk up a hill (5.50 METs) DASI Score: 23.45 (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 Clinical Frailty Scale: 3. Well, with treated comorbid disease STOP-Bang Score: Denies snoring loudly Denies feeling tired, fatigued, or sleepy during the daytime Has not been observed to stop breathing or choking/gasping during sleep Denies having high blood pressure BMI less than or equal to 35 kg/m^2 Patient 50 years old or younger Does not have a large neck Non-male patient STOP-Bang Score: 0 [id number] Score: Age: <65 Sex: female CHF history: No Hypertension history: No Stroke/TIA/thromboembolism history: No Vascular disease history: No Diabetes history: Yes [id number] Score: 2 I - PHYSICAL EVALUATION AIRWAY Patient intubated: No. Tracheostomy tube not present Mallampati: II. TM distance: >3 FB. Neck ROM: full ROM without neurological symptoms. Mouth opening: adequate. Short neck: no. Thick neck: no Lip Bite Test: I Microretrognathia/Micronagthia/R ecessed Chin: No DENTAL Dental findings: teeth intact. Additional comments: +Caps/crowns. II - ANESTHESIA PLAN Anesthetic Plan: other Anesthetic plan additional comments: *PACC/TCI - anesthesia choice. Beta Amilcar Monitoring Plan Post Procedure Analgesic Plan Prepared for Surgery: optimally prepared for surgery, pending day of surgery. DOS REVIEW - PATIENT WAS SEEN VIRTUALLY FOR PACC. CONSULTS: Patient does not require consults for optimization at this time Planned Anesthetic: other anesthesia choice The Following Tests/Procedures Have Been Initiated: No labs or ECG indicated per PACC protocol. This is a virtual visit using CrowdFeed video visit. It required patient-provider interaction for the medical decision making as documented below. REASON FOR VISIT: Pauly Whitehead is a 29 year old female who is scheduled for Procedure(s): RECONSTRUCTION TOE HAMMER (Right) at the request of Dr. Elie Carvajal for consultation. My final recommendation will be communicated back to the requesting physician by way of shared medical record or letter. Subjective The patient has the following: ACTIVE PROBLEM LIST Closed Fracture of Calcaneus History of seizures Vitamin D Deficiency Tachycardia Type 1 Diabetes Mellitus Without Complication (Hcc) Mixed Hyperlipidemia Class 1 Obesity With Body Mass Index (Bmi) of 30.0 to 30.9 in Adult COVID-19 Immunization Status Current Care Gaps Covid-19 Vaccine ( season) Overdue since 02/23/2024 02/14/2023 Postponed until 02/15/2024 by Lindsay Martinez LPN (Declined at this time) 03/24/2021 Imm Admin: COVID-19 original vaccine, age 12+ yr, monovalent (PFIZER-BIONTECH - PURPLE TOP) 08/25/2020 Imm Admin: COVID-19 original vaccine, age 12+ yr, monovalent (PFIZER-BIONTECH - PURPLE TOP) Only the first 3 history entries have been loaded, but more history exists. CHIEF COMPLAINT: hammertoe HPI: Pauly Whitehead is a 29 year old female presenting for pre-anesthesia consultation. Pt has history of right fifth toe pain / hammertoe. 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 Above procedure recommended to manage symptoms. Procedure scheduled on 12/11/2024 at [facility]. This is a virtual visit. The visit was conducted using CrowdFeed video visit. It required patient-provider interaction for the medical decision making as documented below. I have communicated my name and active licensure. The patient's identity and physical location were verified at the time of this visit. Either the patient or their legal senior customer service representative has been informed of the risks and benefits of and alternatives to treatment through a remote evaluation and consents to proceed with the evaluation remotely. REVIEW OF SYSTEMS: General: +Weight loss - on Qysmia, has lost 80 lbs in the past 3 years Negative for: fever. Neurological: Positive for: seizures (remote h/o seizures - related to hypoglycemia, was on Tegretol x 2 years). Negative for: multiple sclerosis, Parkinson's disease, TIA and strokes. Respiratory: No history of current cough or dyspnea, or pneumonia in the past 6 weeks. No history of respiratory/pulmonary symptoms or problems. Cardiovascular: Positive for: hyperlipidemia (takes atorvastatin M-F) Negative for: AICD/PPM, arrhythmia, atrial fibrillation, CHF, DVT/PE, hypertension, recent GA, murmur/valvular heart disease, PTCA, open heart surgery and valve surgery. GI: No history of GI symptoms or problems. No history of esophageal varices, recent ascites, or ETOH greater than 2 drinks per day. : No history of dysuria, frequency or incontinence, stones or chronic kidney disease. No difficulty urinating, nocturia > 1 time per night or hematuria. Endocrine: Positive for: diabetes mellitus (dx 10/1998, A1C 7.0% 06/2024, follows with [facility]o at [facility], Dr. Andrew, FBS 120-140s). Patient's diabetes mellitus is controlled by insulin and oral agents. Negative for: hyperthyroidism, hypothyroidism and steroid for chronic problem. Hematology: No history of bleeding or clotting disorder. Patient is not taking anti-coagulation or platelet medications. No history of hematological symptoms or problems. Oncology: No history of CA metastasis, chemo within 30 days, or radiotherapy within 90 days. No history of oncological symptoms or problems. Psych: No history of psychiatric symptoms or problems. Musculoskeletal: See HPI. Skin: Negative for lesions, rash and itching. Implanted Devices: No implanted devices. PAST MEDICAL HISTORY Diagnosis Date Morbid obesity with BMI of 40.0-44.9, adult (HCC) PMH - PAST MEDICAL HISTORY OF menarche at age 8 years Seizure disorder (HCC) none since childhood after treated with Tegretol for 2 years Type 1 diabetes mellitus 07/22/2005 Type (06/24/1999): dx type 1 diabetes. Varicella without mention of complication age 3 or 4 years PAST SURGICAL HISTORY Procedure Laterality Date PAST SURGICAL HISTORY OF Right 2019 right foot x 2 (fracture) TYMPANOSTOMY LOCAL/TOPICAL ANESTHESIA FAMILY HISTORY Problem Relation Age of Onset Heart Mother Hypertension Father Lipids Father Diabetes Other maternal and paternal side Anesthesia Problems No Family History Social History Tobacco Use Smoking status: Never Smokeless tobacco: Never Vaping Use Vaping status: Never Used Substance Use Topics Alcohol use: No Drug use: No Prior to Admission medications as of 11/24/24 1336 Medication Sig Last Dose Taking topiramate (TOPAMAX) 50 mg tablet Take 50 mg by mouth once daily. Will be taking for 1 week while holding Qsymia per weight mgmt doctor, Dr. Mckeon Yes calcium carbonate 600 mg-cholecalciferol 400 units (CALCIUM 600 + D) 600 mg-10 mcg (400 unit) tab Take 1 tablet by mouth two times a day. Yes QSYMIA 15-92 mg 24 Hr Capsule TAKE ONE CAPSULE BY MOUTH DAILY DIRECTED Yes insulin lispro (HUMALOG) 100 unit/mL injection See Instructions, 120 units daily in insulin pump, # 110 mL, 3 Refill(s), Pharmacy: [facility] Yes atorvastatin (LIPITOR) 20 mg tablet Take 20 mg by mouth five times a week. Takes Saturday-Saturday only Yes empagliflozin (JARDIANCE) 25 mg tablet Take 25 mg by mouth daily with breakfast. Yes Cholecalciferol, Vitamin D3, 2,000 unit cap Take 2 tablets by mouth once daily. Yes insulin needles, DISPOSABLE, (PEN NEEDLE) 31 gauge x 5/16" ndle Use as directed 3-4 times daily with injections glucagon, human recombinant, (GLUCAGON EMERGENCY KIT, HUMAN,) 1 mg injection Inject 1 mg subcutaneously as directed. Dx: E10.9, Uses daily insulin Insulin Sunburst, Disposable, (BD ULTRAFINE III MINI PEN) 31 x 3/16 " Ndle 1 Each three times daily. USE WITH INSULIN PENS syringe w-ndl, disp,insul,1ml(BD INSULIN SYRINGE ULT-FINE II 1 ML 31 X 5/16") Use as directed. No medication comments found. ALLERGIES Allergen Reactions [place] Hives Objective PHYSICAL EXAM: (if completed, exam performed via video enabled technology) General: alert and oriented and healthy appearance. Pertinent negatives noted - not distressed. Skin: No rashes noted. HEENT: Normocephalic. EOM intact, no injection, visual acuity is grossly normal. External nose normal without rhinorrhea. Moist mucous membranes. Full neck ROM, no cervical LNs noted. Cardiovascular: Patient palpated radial pulses, pulse regular when counted aloud by patient.. Respiratory: Breathing non-labored, equal chest rise with normal respiratory effort. Speaking in full sentences without difficulty. Abdomen: Deferred. Extremities: No gross deformities of extremities. Neurological: No obvious deficits. PAIN ASSESSMENT: VITALS: Ht 5' 4" (1.63m) Wt 180 lb (81.6kg) LMP 04/09/2022 BMI 30.88 kg/(m^2). Diagnostic tests reviewed for today's visit: Lab Value Units Date High Low HB No results within date range. HCT No results within date range. WBC No results within date range. PLT No results within date range. NA No results within date range. K No results within date range. GLUC No results within date range. BUN No results within date range. CREAT No results within date range. PTSEC No results within date range. INR No results within date range. APTT No results within date range. ALT No results within date range. AST No results within date range. TBILI No results within date range. TSH No results within date range. Lab Value Units Date High Low HCGQT No results within date range. UHCG No results within date range. HCG, BODY* No results within date range. Lab Value Units Date High Low ABORHD No results within date range. ABSCREEN No results within date range. Hemoglobin A1C Date Value 02/11/2023 6.4 % 02/14/2022 7.7 % 04/04/2021 7.4 % 04/04/2020 7.3 % 07/03/2018 8.3 12/17/2017 7.7 06/07/2017 7.9 12/13/2016 8.2 % 01/03/2016 8.6 % 10/08/2015 8.1 % 07/08/2015 8.7 % No results found for this or any previous visit (from the past 8760 hours). No results found for this or any previous visit (from the past 80560 hours). Instructions Given to Patient: Instructions located in the after visit summary. Patient given verbal and written preop instructions and voices comprehension and compliance. SIGNATURE: Phyllis Mcneill PA-C PATIENT NAME: Pauly Whitehead DATE: 11/24/2024 TIME: 1:27 PM PAGER/CONTACT #: [facility] 11-24-2024 History and physical note Images from the original note were not included. [facility] HISTORY AND PHYSICAL EXAMINATION SERVICE DATE: 11/24/2024 SERVICE TIME: 1:27 PM PRIMARY CARE PHYSICIAN: Fe Tolentino MD Assessment Patient has the following medical conditions which may affect casey-operative course: History of seizures Assessment: Remote hx as a child, related to hypoglycemia. Was on Tegretol x 2 years. No recurrence of seizures since childhood. Mixed hyperlipidemia Assessment: Managed on Lipitor 5 days/week per mosaic tiler. Type 1 diabetes mellitus without complication (HCC) Assessment: Managed with insulin pump and Jardiance. FBS 120-140s. A1C 7.0% 06/2024. Managed by endocrinology at [facility], Dr. Harvey Andrew. Per PACC guidelines, patient was instructed to continue at same basal rate DOS. Patient was also instructed to inform DOS team of insulin pump. Class 1 obesity with body mass index (BMI) of 30.0 to 30.9 in adult Assessment: Pt reports 80 lb weight loss in the past 3 years on Qsymia, managed by weight mgmt in [place], Dr. Mckeon. Pt reports that she discussed upcoming procedure with Dr. Mckeon, and has been instructed to hold Qsymia for 7 days prior to upcoming surgery, and to take topiramate 50 mg BID while holding Qysmia. Pt instructed to take topiramate DOS. ANESTHESIA FINDINGS: Intubation History: No history of difficult intubation. No abnormal airway history Significant Anesthesia Considerations: none Airway History: No history of difficult airway No abnormal airway history Mitchell Activity Status Index: METS: Walk indoors, such as around the house (1.75 METs) Do light work around the house, such as dusting or washing dishes (2.70 METs) Take care of self; that is eating, dressing, bathing, using the toilet (2.75 METs) Walk a block or two on level ground (2.75 METs) Do moderate work around the house, such as vacuuming, sweeping floors, or carrying in groceries (3.50 METs) Do yardwork, such as raking leaves, weeding, or pushing a power mower (4.50 METs) Climb a flight of stairs or walk up a hill (5.50 METs) DASI Score: 23.45 (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 Clinical Frailty Scale: 3. Well, with treated comorbid disease STOP-Bang Score: Denies snoring loudly Denies feeling tired, fatigued, or sleepy during the daytime Has not been observed to stop breathing or choking/gasping during sleep Denies having high blood pressure BMI less than or equal to 35 kg/m^2 Patient 50 years old or younger Does not have a large neck Non-male patient STOP-Bang Score: 0 [id number] Score: Age: <65 Sex: female CHF history: No Hypertension history: No Stroke/TIA/thromboembolism history: No Vascular disease history: No Diabetes history: Yes [id number] Score: 2 I - PHYSICAL EVALUATION AIRWAY Patient intubated: No. Tracheostomy tube not present Mallampati: II. TM distance: >3 FB. Neck ROM: full ROM without neurological symptoms. Mouth opening: adequate. Short neck: no. Thick neck: no Lip Bite Test: I Microretrognathia/Micronagthia/R ecessed Chin: No DENTAL Dental findings: teeth intact. Additional comments: +Caps/crowns. II - ANESTHESIA PLAN Anesthetic Plan: other Anesthetic plan additional comments: *PACC/TCI - anesthesia choice. Beta Amilcar Monitoring Plan Post Procedure Analgesic Plan Prepared for Surgery: optimally prepared for surgery, pending day of surgery. DOS REVIEW - PATIENT WAS SEEN VIRTUALLY FOR PACC. CONSULTS: Patient does not require consults for optimization at this time Planned Anesthetic: other anesthesia choice The Following Tests/Procedures Have Been Initiated: No labs or ECG indicated per PACC protocol. This is a virtual visit using CrowdFeed video visit. It required patient-provider interaction for the medical decision making as documented below. REASON FOR VISIT: Pauly Whitehead is a 29 year old female who is scheduled for Procedure(s): RECONSTRUCTION TOE HAMMER (Right) at the request of Dr. Elie Carvajal for consultation. My final recommendation will be communicated back to the requesting physician by way of shared medical record or letter. Subjective The patient has the following: ACTIVE PROBLEM LIST Closed Fracture of Calcaneus History of seizures Vitamin D Deficiency Tachycardia Type 1 Diabetes Mellitus Without Complication (Hcc) Mixed Hyperlipidemia Class 1 Obesity With Body Mass Index (Bmi) of 30.0 to 30.9 in Adult COVID-19 Immunization Status Current Care Gaps Covid-19 Vaccine ( season) Overdue since 02/23/2024 02/14/2023 Postponed until 02/15/2024 by Lindsay Martinez LPN (Declined at this time) 03/24/2021 Imm Admin: COVID-19 original vaccine, age 12+ yr, monovalent (OverblogNTGainsight - PURPLE TOP) 08/25/2020 Imm Admin: COVID-19 original vaccine, age 12+ yr, monovalent (ROAM Data-BIONTGainsight - PURPLE TOP) Only the first 3 history entries have been loaded, but more history exists. CHIEF COMPLAINT: hammertoe HPI: Pauly Whitehead is a 29 year old female presenting for pre-anesthesia consultation. Pt has history of right fifth toe pain 2/2 hammertoe. 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 Above procedure recommended to manage symptoms. Procedure scheduled on 12/11/2024 at [facility]. This is a virtual visit. The visit was conducted using CrowdFeed video visit. It required patient-provider interaction for the medical decision making as documented below. I have communicated my name and active licensure. The patient's identity and physical location were verified at the time of this visit. Either the patient or their legal senior customer service representative has been informed of the risks and benefits of and alternatives to treatment through a remote evaluation and consents to proceed with the evaluation remotely. REVIEW OF SYSTEMS: General: +Weight loss - on Qysmia, has lost 80 lbs in the past 3 years Negative for: fever. Neurological: Positive for: seizures (remote h/o seizures - related to hypoglycemia, was on Tegretol x 2 years). Negative for: multiple sclerosis, Parkinson's disease, TIA and strokes. Respiratory: No history of current cough or dyspnea, or pneumonia in the past 6 weeks. No history of respiratory/pulmonary symptoms or problems. Cardiovascular: Positive for: hyperlipidemia (takes atorvastatin M-F) Negative for: AICD/PPM, arrhythmia, atrial fibrillation, CHF, DVT/PE, hypertension, recent GA, murmur/valvular heart disease, PTCA, open heart surgery and valve surgery. GI: No history of GI symptoms or problems. No history of esophageal varices, recent ascites, or ETOH greater than 2 drinks per day. : No history of dysuria, frequency or incontinence, stones or chronic kidney disease. No difficulty urinating, nocturia > 1 time per night or hematuria. Endocrine: Positive for: diabetes mellitus (dx 10/1998, A1C 7.0% 06/2024, follows with [facility]o [facility], Dr. Andrew, FBS 120-140s). Patient's diabetes mellitus is controlled by insulin and oral agents. Negative for: hyperthyroidism, hypothyroidism and steroid for chronic problem. Hematology: No history of bleeding or clotting disorder. Patient is not taking anti-coagulation or platelet medications. No history of hematological symptoms or problems. Oncology: No history of CA metastasis, chemo within 30 days, or radiotherapy within 90 days. No history of oncological symptoms or problems. Psych: No history of psychiatric symptoms or problems. Musculoskeletal: See HPI. Skin: Negative for lesions, rash and itching. Implanted Devices: No implanted devices. PAST MEDICAL HISTORY Diagnosis Date Morbid obesity with BMI of 40.0-44.9, adult (HCC) PMH - PAST MEDICAL HISTORY OF menarche at age 8 years Seizure disorder (HCC) none since childhood after treated with Tegretol for 2 years Type 1 diabetes mellitus 07/22/2005 Type (06/24/1999): dx type 1 diabetes. Varicella without mention of complication age 3 or 4 years PAST SURGICAL HISTORY Procedure Laterality Date PAST SURGICAL HISTORY OF Right 2019 right foot x 2 (fracture) TYMPANOSTOMY LOCAL/TOPICAL ANESTHESIA FAMILY HISTORY Problem Relation Age of Onset Heart Mother Hypertension Father Lipids Father Diabetes Other maternal and paternal side Anesthesia Problems No Family History Social History Tobacco Use Smoking status: Never Smokeless tobacco: Never Vaping Use Vaping status: Never Used Substance Use Topics Alcohol use: No Drug use: No Prior to Admission medications as of 11/24/24 1336 Medication Sig Last Dose Taking topiramate (TOPAMAX) 50 mg tablet Take 50 mg by mouth once daily. Will be taking for 1 week while holding Qsymia per weight mgmt doctor, Dr. Mckeon Yes calcium carbonate 600 mg-cholecalciferol 400 units (CALCIUM 600 + D) 600 mg-10 mcg (400 unit) tab Take 1 tablet by mouth two times a day. Yes QSYMIA 15-92 mg 24 Hr Capsule TAKE ONE CAPSULE BY MOUTH DAILY DIRECTED Yes insulin lispro (HUMALOG) 100 unit/mL injection See Instructions, 120 units daily in insulin pump, # 110 mL, 3 Refill(s), Pharmacy: [facility] Yes atorvastatin (LIPITOR) 20 mg tablet Take 20 mg by mouth five times a week. Takes Saturday-Saturday only Yes empagliflozin (JARDIANCE) 25 mg tablet Take 25 mg by mouth daily with breakfast. Yes Cholecalciferol, Vitamin D3, 2,000 unit cap Take 2 tablets by mouth once daily. Yes insulin needles, DISPOSABLE, (PEN NEEDLE) 31 gauge x 5/16" ndle Use as directed 3-4 times daily with injections glucagon, human recombinant, (GLUCAGON EMERGENCY KIT, HUMAN,) 1 mg injection Inject 1 mg subcutaneously as directed. Dx: E10.9, Uses daily insulin Insulin Sunburst, Disposable, (BD ULTRAFINE III MINI PEN) 31 x 3/16 " Ndle 1 Each three times daily. USE WITH INSULIN PENS syringe w-ndl, disp,insul,1ml(BD INSULIN SYRINGE ULT-FINE II 1 ML 31 X 5/16") Use as directed. No medication comments found. ALLERGIES Allergen Reactions [place] Hives Objective PHYSICAL EXAM: (if completed, exam performed via video enabled technology) General: alert and oriented and healthy appearance. Pertinent negatives noted - not distressed. Skin: No rashes noted. HEENT: Normocephalic. EOM intact, no injection, visual acuity is grossly normal. External nose normal without rhinorrhea. Moist mucous membranes. Full neck ROM, no cervical LNs noted. Cardiovascular: Patient palpated radial pulses, pulse regular when counted aloud by patient.. Respiratory: Breathing non-labored, equal chest rise with normal respiratory effort. Speaking in full sentences without difficulty. Abdomen: Deferred. Extremities: No gross deformities of extremities. Neurological: No obvious deficits. PAIN ASSESSMENT: VITALS: Ht 5' 4" (1.63m) Wt 180 lb (81.6kg) LMP 04/09/2022 BMI 30.88 kg/(m^2). Diagnostic tests reviewed for today's visit: Lab Value Units Date High Low HB No results within date range. HCT No results within date range. WBC No results within date range. PLT No results within date range. NA No results within date range. K No results within date range. GLUC No results within date range. BUN No results within date range. CREAT No results within date range. PTSEC No results within date range. INR No results within date range. APTT No results within date range. ALT No results within date range. AST No results within date range. TBILI No results within date range. TSH No results within date range. Lab Value Units Date High Low HCGQT No results within date range. UHCG No results within date range. HCG, BODY* No results within date range. Lab Value Units Date High Low ABORHD No results within date range. ABSCREEN No results within date range. Hemoglobin A1C Date Value 02/11/2023 6.4 % 02/14/2022 7.7 % 04/04/2021 7.4 % 04/04/2020 7.3 % 07/03/2018 8.3 12/17/2017 7.7 06/07/2017 7.9 12/13/2016 8.2 % 01/03/2016 8.6 % 10/08/2015 8.1 % 07/08/2015 8.7 % No results found for this or any previous visit (from the past 8760 hours). No results found for this or any previous visit (from the past 25648 hours). Instructions Given to Patient: Instructions located in the after visit summary. Patient given verbal and written preop instructions and voices comprehension and compliance. SIGNATURE: Phyllis Mcneill PA-C PATIENT NAME: Pauly Whitehead DATE: 11/24/2024 TIME: 1:27 PM PAGER/CONTACT #: documented in this encounter [facility] 11-24-2024 Instructions Phyllis Mcneill PA-C - 11/24/2024 1:28 PM EDT Images from the original note were not included. [facility] PATIENT PREOPERATIVE INSTRUCTIONS [facility]: [phone] -- [address] [place] [address]. Please read below carefully for your personalized instructions. Arrival Time for Surgery: - The Surgery Center or hospital where you are having surgery will call the afternoon before surgery (or Saturday for Saturday surgery) with a scheduled arrival time. - If you have not heard by 4 pm, please contact the surgery center above. Dietary Restrictions: - No solid food after midnight. - You may have 12 ounces of clear liquids (water, clear juices such as apple juice or gatorade, carbonated beverages, clear tea, black coffee, jello) until 2 hours before scheduled arrival at facility. Medications: Unless instructed differently below, stay on all of your medications until your surgery. If you start any new medications after today's visit, please contact your surgeon. Pre-Surgery Med Instructions Medication Instructions topiramate (TOPAMAX) 50 mg tablet If you normally take this medication in the morning, take the morning of surgery. calcium carbonate 600 mg-cholecalciferol 400 units (CALCIUM 600 + D) 600 mg-10 mcg (400 unit) tab Do not take the day of surgery QSYMIA 15-92 mg 24 Hr Capsule Hold as directed by Dr. Mckoen. insulin lispro (HUMALOG) 100 unit/mL injection Insulin Pump: continue the same basal rate. atorvastatin (LIPITOR) 20 mg tablet If you normally take this medication in the morning, take the morning of surgery. empagliflozin (JARDIANCE) 25 mg tablet Hold 3 days before surgery. Last dose 12/07/24. Cholecalciferol, Vitamin D3, 2,000 unit cap Do not take the day of surgery If you start any new medications after today's visit, please contact the surgeon's office. If you are currently using a [id number] injectable or oral medication for diabetes or weight loss such as Dulaglutide (Trulicity), Exenatide (Byetta, Bydureon), Liraglutide (Victoza, Saxenda), Semaglutide (Ozempic, Wegovy, Rybelsus), or Tirzepatide (Mounjaro), the medicine should be stopped at least 7 days before surgery. These medicines can cause food to remain in your stomach for a very long time and increase the risks from surgery and anesthesia. Not stopping the medication for a long enough time may result in your surgery being rescheduled. Blood Thinning Medications: - Stop NSAIDS (Ibuprofen, Advil, Aleve, Motrin, Celebrex, Mobic, etc.) 7 days before surgery, as directed by your surgeon. - Stop Aspirin 7 days before surgery, as directed by your surgeon. - Stop ALL herbal and dietary supplements 7 days before surgery. - You may take Tylenol (Acetaminophen) or any of your pain medications that do not contain aspirin or NSAIDS as needed. Important Reminders: - If you use CPAP/BIPAP, bring the machine with you to the surgery center. - If you are prescribed inhalers for breathing, continue using them. Bring your inhalers with you. - Candy, mints, and tobacco products are NOT permitted the morning of surgery. - Hearing aids, dentures and glasses may be worn the morning of surgery. - NO jewelry, body piercings, makeup, hairpins or contacts are to be worn the day of surgery. If you develop symptoms such as a fever, cold, or flu, or have other changes to your health within TWO DAYS of scheduled surgery or the morning of surgery, please contact the surgery center above. Personal Belongings: -Please have photo ID and insurance cards. -If you do not have a copy of advance directives on file with us, please bring a copy with you on the day of surgery. - Leave ALL valuables and money at home or with family members. - Please bring high-quality footwear, such as sneakers, to the hospital for ambulating post-surgery. For Outpatient Procedures: - YOU MUST HAVE A RESPONSIBLE YOKER TAKE YOU HOME. A ACCESS CONTROL OFFICER OR FORESTRY FOREMAN CANNOT BE MADE A RESPONSIBLE YOKER. - We recommend that a responsible person stays with you overnight to take care of you. - You cannot stay in a hotel alone after outpatient surgery. You will not be permitted to have your surgery, if you do not have someone to take care of you. Please be aware that emergency situations arise, which may delay or change your surgical time. If this happens, we will notify you as soon as possible and regret any inconvenience. If you already have an Advance Directive, please fax a copy to [phone] or email to for it to be added to your chart. If you do not have an Advance Directive, you can find the appropriate form and more information at [email or web address]. We recommend that you complete the Advance Directive form found on the website and bring it with you the day of your surgery. It can be witnessed and scanned into your chart that day. documented in this encounter [facility] 10-21-2024 Note HNO ID: [id number] Author: ELIE CARVAJAL, ? Service: ? Author Type: Physician Type: Progress Notes Filed: 10/21/2024 09:10 Note Text: Judah Coats is a 29-year-old female with a history of diabetes, presenting for right fifth toe pain. Right Fifth Toe Pain: - Pain at the site of a callus on the right fifth toe. - Pain severity rated as 5-6/10 at rest, increasing to 10/10 during work. 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 - Has been using padding and buffing the callus with minimal relief. - Interested in discussing surgical options for correction. Diabetes: - Last A1c in June was 6.9%. - Previous A1c in January 2023 was 6.4%. Musculoskeletal: (+) right fifth toe pain Skin: (-) changes in existing right second toe mole PAST MEDICAL HISTORY Diagnosis Date Morbid obesity with BMI of 40.0-44.9, adult (HCC) PMH - PAST MEDICAL HISTORY OF menarche at age 8 years Seizure disorder ([facility]) none since childhood after treated with Tegretol for 2 years Type 1 diabetes mellitus 07/22/2005 Type (06/24/1999): dx type 1 diabetes. Varicella without mention of complication age 3 or 4 years Current Outpatient Medications Medication Sig Dispense Refill QSYMIA 15-92 mg 24 Hr Capsule TAKE ONE CAPSULE BY MOUTH DAILY DIRECTED insulin lispro (HUMALOG) 100 unit/mL injection See Instructions, 120 units daily in insulin pump, # 110 mL, 3 Refill(s), Pharmacy: [facility] atorvastatin (LIPITOR) 20 mg tablet Take by mouth. empagliflozin (JARDIANCE) 25 mg tablet Take by mouth. insulin needles, DISPOSABLE, (PEN NEEDLE) 31 gauge x 5/16" ndle Use as directed 3-4 times daily with injections 300 Each 3 glucagon, human recombinant, (GLUCAGON EMERGENCY KIT, HUMAN,) 1 mg injection Inject 1 mg subcutaneously as directed. Dx: E10.9, Uses daily insulin 3 Each 3 Cholecalciferol, Vitamin D3, 2,000 unit cap Take 2 tablets by mouth once daily. Insulin Sunburst, Disposable, (BD ULTRAFINE III MINI PEN) 31 x 3/16 " Ndle 1 Each three times daily. USE WITH INSULIN PENS 100 Each 1 syringe w-ndl, disp,insul,1ml(BD INSULIN SYRINGE ULT-FINE II 1 ML 31 X 5/16") Use as directed. 100 4 No current facility-administered medications for this visit. Family History Problem Relation Age of Onset Diabetes Other maternal and paternal side Heart Mother Hypertension Father Lipids Father Objective Last menstrual period 04/09/2022. - Cardiovascular: Dorsalis pedis and posterior tibial pulses palpable bilaterally; capillary refill time <5 seconds. - Skin: Warm to cool temperature; diminished hair growth on both feet; small callus on the lateral aspect of the interphalangeal joint of the right fifth toe; brown hypopigmented lesion on the right second toe measuring 4mm x 4mm; no other sores noted on bilateral feet. - Musculoskeletal: - Right Fifth Toe: Hammer toe deformity; semi-reducible with manual manipulation. - Left Fifth Toe: Hammer toe deformity; reducible with manual manipulation. - Neurological: Sensation intact to bilateral feet. Labs: (01/2023) HbA1c: 6.4 (06/2022) HbA1c: 6.9 Imaging: (08/2024) X-ray of the right foot: Medial deviation of the right fifth toe, consistent with hammer toe deformity. 1. Hammertoe of right foot (M20.41) 2. Callus (L84) - Examination reveals hammer toe deformity of the bilateral fifth toes, with the right fifth toe being semi-reducible and the left fifth toe being reducible. Small callus noted on the lateral aspect of the right fifth toe. - Discussed conservative management options including continued use of pumice stone and gel toe caps, but these will not resolve the underlying deformity. - Reviewed surgical options: tenotomy and derotational arthroplasty. - Tenotomy: Minimally invasive, performed under local anesthesia, involves cutting the tendon to straighten the toe. Quick recovery with stitches in place for about 2 weeks. However, due to the resistance noted in the right fifth toe, the success of this procedure is uncertain. - Derotational arthroplasty: Involves making an oblique incision and removing a sliver of bone to straighten the toe. Performed under light sedation (MAC). Recovery involves wearing a surgical shoe for 3-4 weeks, with stitches removed at 2.5-3 weeks. Discussed potential risks including infection, bleeding, slow wound healing, and the possibility of "floppy toe." - Patient understands the risks and benefits of both procedures and has consented to proceed with derotational arthroplasty of the right fifth toe with possible soft tissue release if necessary. - Pre-admission testing will be conducted prior to surgery. - Advised patient to avoid NSAIDs and alcohol one week before the procedure. - Expected time off work is approximately 5-6 weeks but varies with patient to patient. - Follow-up appointments scheduled post-operatively to monitor healing and remove stitches. Callus (more content not included)... [facility] 10-21-2024 History of Presen t illness Narrative Subjective Pauly is a 29-year-old female with a history of diabetes, presenting for right fifth toe pain. Right Fifth Toe Pain: - Pain at the site of a callus on the right fifth toe. - Pain severity rated as 5-6/10 at rest, increasing to 10/10 during work. 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 - Has been using padding and buffing the callus with minimal relief. - Interested in discussing surgical options for correction. Diabetes: - Last A1c in June was 6.9%. - Previous A1c in January 2023 was 6.4%. Musculoskeletal: (+) right fifth toe pain Skin: (-) changes in existing right second toe mole PAST MEDICAL HISTORY Diagnosis Date Morbid obesity with BMI of 40.0-44.9, adult (HCC) PMH - PAST MEDICAL HISTORY OF menarche at age 8 years Seizure disorder ([facility]) none since childhood after treated with Tegretol for 2 years Type 1 diabetes mellitus 07/22/2005 Type (06/24/1999): dx type 1 diabetes. Varicella without mention of complication age 3 or 4 years Current Outpatient Medications Medication Sig Dispense Refill QSYMIA 15-92 mg 24 Hr Capsule TAKE ONE CAPSULE BY MOUTH DAILY DIRECTED insulin lispro (HUMALOG) 100 unit/mL injection See Instructions, 120 units daily in insulin pump, # 110 mL, 3 Refill(s), Pharmacy: [facility] atorvastatin (LIPITOR) 20 mg tablet Take by mouth. empagliflozin (JARDIANCE) 25 mg tablet Take by mouth. insulin needles, DISPOSABLE, (PEN NEEDLE) 31 gauge x 5/16" ndle Use as directed 3-4 times daily with injections 300 Each 3 glucagon, human recombinant, (GLUCAGON EMERGENCY KIT, HUMAN,) 1 mg injection Inject 1 mg subcutaneously as directed. Dx: E10.9, Uses daily insulin 3 Each 3 Cholecalciferol, Vitamin D3, 2,000 unit cap Take 2 tablets by mouth once daily. Insulin Sunburst, Disposable, (BD ULTRAFINE III MINI PEN) 31 x 3/16 " Ndle 1 Each three times daily. USE WITH INSULIN PENS 100 Each 1 syringe w-ndl, disp,insul,1ml(BD INSULIN SYRINGE ULT-FINE II 1 ML 31 X 5/16") Use as directed. 100 4 No current facility-administered medications for this visit. Family History Problem Relation Age of Onset Diabetes Other maternal and paternal side Heart Mother Hypertension Father Lipids Father Objective Last menstrual period 04/09/2022. - Cardiovascular: Dorsalis pedis and posterior tibial pulses palpable bilaterally; capillary refill time <5 seconds. - Skin: Warm to cool temperature; diminished hair growth on both feet; small callus on the lateral aspect of the interphalangeal joint of the right fifth toe; brown hypopigmented lesion on the right second toe measuring 4mm x 4mm; no other sores noted on bilateral feet. - Musculoskeletal: - Right Fifth Toe: Hammer toe deformity; semi-reducible with manual manipulation. - Left Fifth Toe: Hammer toe deformity; reducible with manual manipulation. - Neurological: Sensation intact to bilateral feet. Labs: (01/2023) HbA1c: 6.4 (06/2022) HbA1c: 6.9 Imaging: (08/2024) X-ray of the right foot: Medial deviation of the right fifth toe, consistent with hammer toe deformity. 1. Hammertoe of right foot (M20.41) 2. Callus (L84) - Examination reveals hammer toe deformity of the bilateral fifth toes, with the right fifth toe being semi-reducible and the left fifth toe being reducible. Small callus noted on the lateral aspect of the right fifth toe. - Discussed conservative management options including continued use of pumice stone and gel toe caps, but these will not resolve the underlying deformity. - Reviewed surgical options: tenotomy and derotational arthroplasty. - Tenotomy: Minimally invasive, performed under local anesthesia, involves cutting the tendon to straighten the toe. Quick recovery with stitches in place for about 2 weeks. However, due to the resistance noted in the right fifth toe, the success of this procedure is uncertain. - Derotational arthroplasty: Involves making an oblique incision and removing a sliver of bone to straighten the toe. Performed under light sedation (MAC). Recovery involves wearing a surgical shoe for 3-4 weeks, with stitches removed at 2.5-3 weeks. Discussed potential risks including infection, bleeding, slow wound healing, and the possibility of "floppy toe." - Patient understands the risks and benefits of both procedures and has consented to proceed with derotational arthroplasty of the right fifth toe with possible soft tissue release if necessary. - Pre-admission testing will be conducted prior to surgery. - Advised patient to avoid NSAIDs and alcohol one week before the procedure. - Expected time off work is approximately 5-6 weeks but varies with patient to patient. - Follow-up appointments scheduled post-operatively to monitor healing and remove stitches. Callus reduced with dremmel today Attestation Recording using ambient RunRev software for draft documentation of the visit was discussed with the patient/authorized senior customer service representative; all questions welcomed and answered. Patient/authorized senior customer service representative agreed to proceed Elie Carvajal DPM Patient presents with: Right Foot - Follow Up: Discuss surgical options right 5th toe AMB ROOMING INTAKE FLOWSHEET DATA Pain Pain Level: 6 Pain Location: (Right 5th toe) Description: Aching, Pressure Duration Amount of Time: (Ongoing) Frequency: Intermittent (Occurs when toe is touched and wearing shoes) Intervention/Comfort measure: (None) Comments: Walking/putting any pressure on right 5th toe pain is 8-9/10, extremely painful to walk. Have pain relief when not walking and no shoes are on feet and nothing is touching toe shoes, socks, blankets, etc .. Taking no med's for the pain. documented in this encounter [facility] 10-20-2024 Note HNO ID: [id number] Author: LINDSAY BECKWITH MA Service: ? Author Type: Group Art Supervisor Type: Progress Notes Filed: 10/21/2024 09:10 Note Text: Patient presents with: Right Foot - Follow Up: Discuss surgical options right 5th toe AMB ROOMING INTAKE FLOWSHEET DATA Pain Pain Level: 6 Pain Location: (Right 5th toe) Description: Aching, Pressure Duration Amount of Time: (Ongoing) Frequency: Intermittent (Occurs when toe is touched and wearing shoes) Intervention/Comfort measure: (None) Comments: Walking/putting any pressure on right 5th toe pain is 8-9/10, extremely painful to walk. Have pain relief when not walking and no shoes are on feet and nothing is touching toe shoes, socks, blankets, etc?.. Taking no med's for the pain. [facility] 10-09-2024 Telephone encounter Note Patient scheduled on 10/20/2024 to discuss results and surgical planning. [facility] Work Phone: 10-09-2024 Miscellaneous Notes Patient scheduled on 10/20/2024 to discuss results and surgical planning. Awaiting PVR results scheduled 10/06/24. Elie Carvajal to Jocelin Sandy LPN 08/31/24 12:38 PM We can get her scheduled sometime in September or October Patient name: Pauly Whitehead* Type of surgery:derotational arthroplasty right 5th toe Diagnosis: hammertoe* Length of surgery:60* min Manager Relationship needed: none* Anesthesia: mac Special equipment: mini c arm Special instructions: * documented in this encounter [facility] 09-02-2024 Telephone encounter Note Awaiting PVR results scheduled 10/06/24. [facility] 09-02-2024 Telephone encounter Note Elie Carvajal to Jocelin Sandy LPN 08/31/24 12:38 PM We can get her scheduled sometime in September or October Patient name: Pauly Whitehead* Type of surgery:derotational arthroplasty right 5th toe Diagnosis: hammertoe* Length of surgery:60* min Manager Relationship needed: none* Anesthesia: mac Special equipment: mini c arm Special instructions: * [facility] 08-25-2024 History of Presen t illness Narrative Radiology Service Progress Note PATIENT NAME: Pauly Whitehead DATE OF SERVICE: August 25, 2024 TIME: 11:23 AM PATIENT IDENTITY VERIFICATION COMPLETED USING TWO (2) IDENTIFIERS: Name and Date of confirmed by patient verbally. FALL SCREENING: Has the patient had 2 falls in the last year or 1 fall with injury or currently using an Ambulatory Assistive Device (Walker, Cane, Wheelchair, Crutches, etc.)? No PATIENT GENDER DATA: Assigned female at . status: : No status: NO. PATIENT RELEVANT IMPLANT DATA REVIEWED: Not Applicable PATIENT PRESENTS WITH AN IMPLANTABLE OR ATTACHED ASSOCIATE PROFESSOR OF LIBRARY SCIENCE: No RADIOLOGY DEPARTMENT: General X-ray: Exam(s) Completed: Lower Extremity X-Ray(s): Foot, Right and Wt. Bearing PERIPHERAL IV DATA: Not applicable SIGNED BY: MELODIE Lujan) August 25, 2024 11:23 AM documented in this encounter [facility] 08-25-2024 Note HNO ID: [id number] Author: CHRIS VARELA RT(R) Service: Radiology Author Type: Technologist Type: Progress Notes Filed: 08/25/2024 11:36 Note Text: Radiology Service Progress Note PATIENT NAME: Pauly Whitehead DATE OF SERVICE: August 25, 2024 TIME: 11:23 AM PATIENT IDENTITY VERIFICATION COMPLETED USING TWO (2) IDENTIFIERS: Name and Date of confirmed by patient verbally. FALL SCREENING: Has the patient had 2 falls in the last year or 1 fall with injury or currently using an Ambulatory Assistive Device (Walker, Cane, Wheelchair, Crutches, etc.)? No PATIENT GENDER DATA: Assigned female at . status: : No status: NO. PATIENT RELEVANT IMPLANT DATA REVIEWED: Not Applicable PATIENT PRESENTS WITH AN IMPLANTABLE OR ATTACHED ASSOCIATE PROFESSOR OF LIBRARY SCIENCE: No RADIOLOGY DEPARTMENT: General X-ray: Exam(s) Completed: Lower Extremity X-Ray(s): Foot, Right and Wt. Bearing PERIPHERAL IV DATA: Not applicable SIGNED BY: RT Le(R) August 25, 2024 11:23 AM [facility] 08-25-2024 Note HNO ID: [id number] Author: ELIE CARVAJAL, ? Service: ? Author Type: Physician Type: Progress Notes Filed: 08/25/2024 11:53 Note Text: FOLLOW UP PODIATRIC OFFICE VISIT Chief Complaint: This 29 year old who presents for follow up:painful callus of right 5th toe Patient presents to clinic for follow-up right 5th toe Complains of callus to right 5th toe Has tried padding but the padding she uses tends to fall off She treats the callus with periodic debridement PAIN EVALUATION 08/24/2024 6197 Pain Level: 6 Pain Location: Toe Description: Aching;Pressure;Sharp;Sore;Stabb ing;Tenderness Duration Amount of Time: 12 Duration Units: Months Frequency: Continuous Intervention/Comfort measure: Other: See comment Comments: Pain is continuous. Have some relief when completely barefoot and nothing is touching toe. Socks and any type of shoe makes it worse despite the toe cushion. Hemoglobin A1C Date Value Ref Range Status 02/11/2023 6.4 (H) 4.3 - 5.6 % Final Comment: [place] [employer] guidelines indicate that patients with HgbA1c in the range 5.7-6.4% are at increased risk for development of diabetes, and intervention by lifestyle modification may be beneficial. HgbA1c greater or equal to 6.5% is considered diagnostic of diabetes. PCP: Fe Tolentino MD PAST MEDICAL HISTORY Diagnosis Date Morbid obesity with BMI of 40.0-44.9, adult (HCC) PMH - PAST MEDICAL HISTORY OF menarche at age 8 years Seizure disorder (HCC) none since childhood after treated with Tegretol for 2 years Type 1 diabetes mellitus 07/22/2005 Type (06/24/1999): dx type 1 diabetes. Varicella without mention of complication age 3 or 4 years Current Outpatient Medications Medication Sig QSYMIA 15-92 mg 24 Hr Capsule TAKE ONE CAPSULE BY MOUTH DAILY DIRECTED insulin lispro (HUMALOG) 100 unit/mL injection See Instructions, 120 units daily in insulin pump, # 110 mL, 3 Refill(s), Pharmacy: [facility] atorvastatin (LIPITOR) 20 mg tablet Take by mouth. empagliflozin (JARDIANCE) 25 mg tablet Take by mouth. insulin needles, DISPOSABLE, (PEN NEEDLE) 31 gauge x 5/16" ndle Use as directed 3-4 times daily with injections glucagon, human recombinant, (GLUCAGON EMERGENCY KIT, HUMAN,) 1 mg injection Inject 1 mg subcutaneously as directed. Dx: E10.9, Uses daily insulin Cholecalciferol, Vitamin D3, 2,000 unit cap Take 2 tablets by mouth once daily. Insulin Sunburst, Disposable, (BD ULTRAFINE III MINI PEN) 31 x 3/16 " Ndle 1 Each three times daily. USE WITH INSULIN PENS syringe w-ndl, disp,insul,1ml(BD INSULIN SYRINGE ULT-FINE II 1 ML 31 X 5/16") Use as directed. No current facility-administered medications for this visit. ALLERGIES Allergen Reactions [place] Hives PAST SURGICAL HISTORY Procedure Laterality Date TYMPANOSTOMY LOCAL/TOPICAL ANESTHESIA Physical Exam: OBJECTIVE: Constitutional: Pt is a well developed 29 year old female who is alert, oriented, cooperative and in no apparent distress. Eyes: Following during examination. No redness or drainage. Respiratory: RR normal and nonlabored. Even breathing. No evidence of distress. Psychology: Patient is engaged during conversation. Normal affect and mood. Does not appear depressed or anxious. Vascular: DP and Pt pulses are faintly palpable b/l. Cft is less than 5 seconds. Dermatological: Nails 1-5 b/l are normal. Webspaces clean and dry 1-4 b/l. Skin appears well hydrated and supple. good color, texture, turgor. No open lesions present. No callosities present. Musculoskeletal/Orthopaedic: Patient has pain to palpation of right 5th toe at site of callus The right 5th toe presents with rigid adductovarus deformity ASSESSMENT: (L84) Callus (primary encounter diagnosis) (M20.41) Hammertoe of right foot (R09.89) Diminished pulses in lower extremity PLAN: Discussed callus of right 5th toe. The callus is caused by the hammertoe deformity of right 5th toe placing increased pressure on the pipj. Options discussed include padding and periodic reduction of callus vs surgical intervention Because the deformity is more rigid in nature, I do not feel tenotomy would result in correction of deformity. Rather, I think she requires derotational arthroplasty I am going to get xray of right foot documenting location of callus I am going to order pvr. Pvr is necessary to assure adequate perfusion to the toe. Will call with results. Patient will make decision thereafter She does consent for derotational arthroplasty with possible tenotomy of flexor tendon Elie Carvajal DPM [facility] 08-25-2024 History of Presen t illness Narrative Images from the original note were not included. FOLLOW UP PODIATRIC OFFICE VISIT Chief Complaint: This 29 year old who presents for follow up:painful callus of right 5th toe Patient presents to clinic for follow-up right 5th toe Complains of callus to right 5th toe Has tried padding but the padding she uses tends to fall off She treats the callus with periodic debridement PAIN EVALUATION 08/24/2024 185 Pain Level: 6 Pain Location: Toe Description: Aching;Pressure;Sharp;Sore;Stabb ing;Tenderness Duration Amount of Time: 12 Duration Units: Months Frequency: Continuous Intervention/Comfort measure: Other: See comment Comments: Pain is continuous. Have some relief when completely barefoot and nothing is touching toe. Socks and any type of shoe makes it worse despite the toe cushion. Hemoglobin A1C Date Value Ref Range Status 02/11/2023 6.4 (H) 4.3 - 5.6 % Final Comment: [place] [employer] guidelines indicate that patients with HgbA1c in the range 5.7-6.4% are at increased risk for development of diabetes, and intervention by lifestyle modification may be beneficial. HgbA1c greater or equal to 6.5% is considered diagnostic of diabetes. PCP: Fe Tolentino MD PAST MEDICAL HISTORY Diagnosis Date Morbid obesity with BMI of 40.0-44.9, adult (HCC) PMH - PAST MEDICAL HISTORY OF menarche at age 8 years Seizure disorder (HCC) none since childhood after treated with Tegretol for 2 years Type 1 diabetes mellitus 07/22/2005 Type (06/24/1999): dx type 1 diabetes. Varicella without mention of complication age 3 or 4 years Current Outpatient Medications Medication Sig QSYMIA 15-92 mg 24 Hr Capsule TAKE ONE CAPSULE BY MOUTH DAILY DIRECTED insulin lispro (HUMALOG) 100 unit/mL injection See Instructions, 120 units daily in insulin pump, # 110 mL, 3 Refill(s), Pharmacy: [facility] atorvastatin (LIPITOR) 20 mg tablet Take by mouth. empagliflozin (JARDIANCE) 25 mg tablet Take by mouth. insulin needles, DISPOSABLE, (PEN NEEDLE) 31 gauge x 5/16" ndle Use as directed 3-4 times daily with injections glucagon, human recombinant, (GLUCAGON EMERGENCY KIT, HUMAN,) 1 mg injection Inject 1 mg subcutaneously as directed. Dx: E10.9, Uses daily insulin Cholecalciferol, Vitamin D3, 2,000 unit cap Take 2 tablets by mouth once daily. Insulin Sunburst, Disposable, (BD ULTRAFINE III MINI PEN) 31 x 3/16 " Ndle 1 Each three times daily. USE WITH INSULIN PENS syringe w-ndl, disp,insul,1ml(BD INSULIN SYRINGE ULT-FINE II 1 ML 31 X 5/16") Use as directed. No current facility-administered medications for this visit. ALLERGIES Allergen Reactions [place] Hives PAST SURGICAL HISTORY Procedure Laterality Date TYMPANOSTOMY LOCAL/TOPICAL ANESTHESIA Physical Exam: OBJECTIVE: Constitutional: Pt is a well developed 29 year old female who is alert, oriented, cooperative and in no apparent distress. Eyes: Following during examination. No redness or drainage. Respiratory: RR normal and nonlabored. Even breathing. No evidence of distress. Psychology: Patient is engaged during conversation. Normal affect and mood. Does not appear depressed or anxious. Vascular: DP and Pt pulses are faintly palpable b/l. Cft is less than 5 seconds. Dermatological: Nails 1-5 b/l are normal. Webspaces clean and dry 1-4 b/l. Skin appears well hydrated and supple. good color, texture, turgor. No open lesions present. No callosities present. Musculoskeletal/Orthopaedic: Patient has pain to palpation of right 5th toe at site of callus The right 5th toe presents with rigid adductovarus deformity ASSESSMENT: (L84) Callus (primary encounter diagnosis) (M20.41) Hammertoe of right foot (R09.89) Diminished pulses in lower extremity PLAN: Discussed callus of right 5th toe. The callus is caused by the hammertoe deformity of right 5th toe placing increased pressure on the pipj. Options discussed include padding and periodic reduction of callus vs surgical intervention Because the deformity is more rigid in nature, I do not feel tenotomy would result in correction of deformity. Rather, I think she requires derotational arthroplasty I am going to get xray of right foot documenting location of callus I am going to order pvr. Pvr is necessary to assure adequate perfusion to the toe. Will call with results. Patient will make decision thereafter She does consent for derotational arthroplasty with possible tenotomy of flexor tendon Elie Carvajal DPM Patient presents with: Right Foot - Established Patient, Follow Up, Pain, Callous AMB ROOMING INTAKE FLOWSHEET DATA Risk Screening Do you have concerns about personal safety or safety in the home?: No Pain Pain Level: 6 Pain Location: Toe Description: Aching, Pressure, Sharp, Sore, Stabbing, Tenderness Duration Amount of Time: 12 Duration Units: Months Frequency: Continuous Intervention/Comfort measure: Other: See comment Comments: Pain is continuous. Have some relief when completely barefoot and nothing is touching toe. Socks and any type of shoe makes it worse despite the toe cushion. Patient presents for follow up callus and hammer toe to right foot, 5th toe. Has tried the gel toe cap, but states that it did not help much. Area is tender to touch. MARTIR 08/20/23 documented in this encounter [facility] 08-25-2024 Note HNO ID: [id number] Author: PHYLLIS PORRAS RN Service: ? Author Type: Registered Nurse Type: Progress Notes Filed: 08/25/2024 11:53 Note Text: Patient presents with: Right Foot - Established Patient, Follow Up, Pain, Callous AMB ROOMING INTAKE FLOWSHEET DATA Risk Screening Do you have concerns about personal safety or safety in the home?: No Pain Pain Level: 6 Pain Location: Toe Description: Aching, Pressure, Sharp, Sore, Stabbing, Tenderness Duration Amount of Time: 12 Duration Units: Months Frequency: Continuous Intervention/Comfort measure: Other: See comment Comments: Pain is continuous. Have some relief when completely barefoot and nothing is touching toe. Socks and any type of shoe makes it worse despite the toe cushion. Patient presents for follow up callus and hammer toe to right foot, 5th toe. Has tried the gel toe cap, but states that it did not help much. Area is tender to touch. MARTIR 08/20/23 [facility] 02-17-2024 Note HNO ID: [id number] Author: MAKI RAMIREZ APRN.POWER HAIR CLIPPER Service: ? Author Type: Nurse Specialist Type: Progress Notes Filed: 02/17/2024 11:43 Note Text: SUBJECTIVE: Depression Screening Never done Anxiety Screening Never done Urine Albumin:Creatinine Ratio due on 04/04/2022 Covid-19 Vaccine() due on 02/22/2023 Cervical Cancer Screening due on 07/28/2023 HbA1C due on 08/14/2023 Annual PCP Team Chronic Disease Visit due on 02/15/2024 LDL Cholesterol due on 02/12/2024 Diabetic Foot Exam due on 02/15/2024 Dilated Retinal Exam due on 03/11/2024 HPI Pauly Whitehead is a 29 year old female. Her PMH is significant for ACTIVE PROBLEM LIST Closed Fracture of Calcaneus History of seizures Vitamin D Deficiency Morbid Obesity With Bmi of 40.0-44.9, Adult (Hcc) Tachycardia Type 1 Diabetes Mellitus Without Complication (Hcc) Mixed Hyperlipidemia Notes she is in her usual state of health. 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 Notes adhering to DM diet. She has lost 80lbs on Qysmia. Exercising 5-6 days per week for 30 minutes. Followed by mosaic tiler: Harvey Andrew. Last visit 05/2023. Hemoglobin A1c was 6.5% at her last visit. She is using the Medtronic insulin pump. She has nonproliferative retinopathy hypertension and hyperlipidemia. Taking atorvastatin Jardiance and insulin. Notes diabetes currently well controlled. DIABETES MELLITUS: Without report of excessive thirst or increased frequency of urination, chest pain or dyspnea , numbness, tingling or pain in extremities, new or unusual visual symptoms, low sugar/hypoglycemic reactions, weight loss/gain, lightheadedness/dizziness, and bowel changes/loose stools. Patient's last HgA1C was Hemoglobin A1C (%) Date Value 02/11/2023 6.4 02/14/2022 7.7 04/04/2021 7.4 04/04/2020 7.3 ) Hyperlipidemia. Ms. Whitehead reports doing well on current therapy. Per Dr Andrew. Her most recent lipid panels are: Cholesterol, Total (mg/dL) Date Value 02/11/2023 150 02/14/2022 196 04/04/2021 201 04/04/2020 153 HDL Cholesterol (mg/dL) Date Value 02/11/2023 42 02/14/2022 54 04/04/2021 53 04/04/2020 44 LDL Cholesterol (mg/dL) Date Value 02/11/2023 100 02/14/2022 133 04/04/2021 131 04/04/2020 98 Triglyceride (mg/dL) Date Value 02/11/2023 40 02/14/2022 45 04/04/2021 87 04/04/2020 53 Last 14 Encounter BP Readings: Date: BP: 02/17/2024 115/77 08/03/2023 102/74 02/14/2023 120/60 04/17/2022 138/85 02/15/2022 126/72 03/23/2020 122/84 11/12/2018 126/84 07/18/2017 100/78 04/03/2017 120/80 10/01/2016 126/68 04/11/2016 126/80 03/14/2016 102/80 2016 112/66 01/11/2016 104/78 Notes remote history of seizures as a child, no recent Notes follows with [facility] for eye exam, has an upcoming appointment. Sees Chapis Nash [employer] DEVEL[employer] provider, appointment 07/2023. Qsymia per Dr Mckeon. She has lost 80 lbs on this medication. Review of Systems Constitutional: Negative. Respiratory: Negative. Cardiovascular: Negative. Endocrine: Negative. Objective BP 115/77 Pulse 83 Resp 16 Ht 160 cm (5' 3") Wt 81.6 kg (179 lb 14.3 oz) LMP 04/09/2022 (Approximate) BMI 31.87 kg/m? Physical Exam Vitals and nursing note reviewed. Constitutional: Appearance: Normal appearance. HENT: Head: Normocephalic and atraumatic. Eyes: Conjunctiva/sclera: Conjunctivae normal. Neck: Thyroid: No thyromegaly. Vascular: Normal carotid pulses. No JVD. Cardiovascular: Rate and Rhythm: Normal rate and regular rhythm. Pulses: Carotid pulses are 2+ on the right side and 2+ on the left side. Radial pulses are 2+ on the right side and 2+ on the left side. Heart sounds: Normal heart sounds. Pulmonary: Effort: Pulmonary effort is normal. Abdominal: General: Bowel sounds are normal. Palpations: Abdomen is soft. Feet: Right foot: Skin integrity: Skin integrity normal. Left foot: Skin integrity: Skin integrity normal. Skin: General: Skin is warm and dry. Neurological: General: No focal deficit present. Mental Status: She is alert. Psychiatric: Mood and Affect: Mood normal. Behavior: Behavior normal. ALLERGIES Allergen Reactions [place] Hives Medications QSYMIA 15-92 mg 24 Hr Capsule TAKE ONE CAPSULE BY MOUTH DAILY DIRECTED insulin lispro (HUMALOG) 100 unit/mL injection See Instructions, 120 units daily in insulin pump, # 110 mL, 3 Refill(s), Pharmacy: [facility] atorvastatin (LIPITOR) 20 mg tablet Take by mouth. empagliflozin (JARDIANCE) 25 mg tablet Take by mouth. insulin needles, DISPOSABLE, (PEN NEEDLE) 31 gauge x 5/16" ndle Use as directed 3-4 times daily with injections glucagon, human recombinant, (GLUCAGON EMERGENCY KIT, HUMAN,) 1 mg injection Inject 1 mg subcutaneously as directed. Dx: E10.9, Uses daily insulin Cholecalciferol, Vitamin D3, 2,000 unit cap Take 2 tablets by mout (more content not included)... [facility] 02-17-2024 History of Presen t illness Narrative SUBJECTIVE: Depression Screening Never done Anxiety Screening Never done Urine Albumin:Creatinine Ratio due on 04/04/2022 Covid-19 Vaccine() due on 02/22/2023 Cervical Cancer Screening due on 07/28/2023 HbA1C due on 08/14/2023 Annual PCP Team Chronic Disease Visit due on 02/15/2024 LDL Cholesterol due on 02/12/2024 Diabetic Foot Exam due on 02/15/2024 Dilated Retinal Exam due on 03/11/2024 HPI Pauly Whitehead is a 29 year old female. Her PMH is significant for ACTIVE PROBLEM LIST Closed Fracture of Calcaneus History of seizures Vitamin D Deficiency Morbid Obesity With Bmi of 40.0-44.9, Adult (Hcc) Tachycardia Type 1 Diabetes Mellitus Without Complication (Hcc) Mixed Hyperlipidemia Notes she is in her usual state of health. 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 Notes adhering to DM diet. She has lost 80lbs on Qysmia. Exercising 5-6 days per week for 30 minutes. Followed by mosaic tiler: Harvey Andrew. Last visit 05/2023. Hemoglobin A1c was 6.5% at her last visit. She is using the Medtronic insulin pump. She has nonproliferative retinopathy hypertension and hyperlipidemia. Taking atorvastatin Jardiance and insulin. Notes diabetes currently well controlled. DIABETES MELLITUS: Without report of excessive thirst or increased frequency of urination, chest pain or dyspnea , numbness, tingling or pain in extremities, new or unusual visual symptoms, low sugar/hypoglycemic reactions, weight loss/gain, lightheadedness/dizziness, and bowel changes/loose stools. Patient's last HgA1C was Hemoglobin A1C (%) Date Value 02/11/2023 6.4 02/14/2022 7.7 04/04/2021 7.4 04/04/2020 7.3 ) Hyperlipidemia. Ms. Whitehead reports doing well on current therapy. Per Dr Andrew. Her most recent lipid panels are: Cholesterol, Total (mg/dL) Date Value 02/11/2023 150 02/14/2022 196 04/04/2021 201 04/04/2020 153 HDL Cholesterol (mg/dL) Date Value 02/11/2023 42 02/14/2022 54 04/04/2021 53 04/04/2020 44 LDL Cholesterol (mg/dL) Date Value 02/11/2023 100 02/14/2022 133 04/04/2021 131 04/04/2020 98 Triglyceride (mg/dL) Date Value 02/11/2023 40 02/14/2022 45 04/04/2021 87 04/04/2020 53 Last 14 Encounter BP Readings: Date: BP: 02/17/2024 115/77 08/03/2023 102/74 02/14/2023 120/60 04/17/2022 138/85 02/15/2022 126/72 03/23/2020 122/84 11/12/2018 126/84 07/18/2017 100/78 04/03/2017 120/80 10/01/2016 126/68 04/11/2016 126/80 03/14/2016 102/80 2016 112/66 01/11/2016 104/78 Notes remote history of seizures as a child, no recent Notes follows with [facility] for eye exam, has an upcoming appointment. Sees Chapis Nash [employer] DEVELOPER provider, appointment 07/2023. Qsymia per Dr Mckeon. She has lost 80 lbs on this medication. Review of Systems Constitutional: Negative. Respiratory: Negative. Cardiovascular: Negative. Endocrine: Negative. Objective BP 115/77 Pulse 83 Resp 16 Ht 160 cm (5' 3") Wt 81.6 kg (179 lb 14.3 oz) LMP 04/09/2022 (Approximate) BMI 31.87 kg/m Physical Exam Vitals and nursing note reviewed. Constitutional: Appearance: Normal appearance. HENT: Head: Normocephalic and atraumatic. Eyes: Conjunctiva/sclera: Conjunctivae normal. Neck: Thyroid: No thyromegaly. Vascular: Normal carotid pulses. No JVD. Cardiovascular: Rate and Rhythm: Normal rate and regular rhythm. Pulses: Carotid pulses are 2+ on the right side and 2+ on the left side. Radial pulses are 2+ on the right side and 2+ on the left side. Heart sounds: Normal heart sounds. Pulmonary: Effort: Pulmonary effort is normal. Abdominal: General: Bowel sounds are normal. Palpations: Abdomen is soft. Feet: Right foot: Skin integrity: Skin integrity normal. Left foot: Skin integrity: Skin integrity normal. Skin: General: Skin is warm and dry. Neurological: General: No focal deficit present. Mental Status: She is alert. Psychiatric: Mood and Affect: Mood normal. Behavior: Behavior normal. ALLERGIES Allergen Reactions [place] Hives Medications QSYMIA 15-92 mg 24 Hr Capsule TAKE ONE CAPSULE BY MOUTH DAILY DIRECTED insulin lispro (HUMALOG) 100 unit/mL injection See Instructions, 120 units daily in insulin pump, # 110 mL, 3 Refill(s), Pharmacy: [facility] atorvastatin (LIPITOR) 20 mg tablet Take by mouth. empagliflozin (JARDIANCE) 25 mg tablet Take by mouth. insulin needles, DISPOSABLE, (PEN NEEDLE) 31 gauge x 5/16" ndle Use as directed 3-4 times daily with injections glucagon, human recombinant, (GLUCAGON EMERGENCY KIT, HUMAN,) 1 mg injection Inject 1 mg subcutaneously as directed. Dx: E10.9, Uses daily insulin Cholecalciferol, Vitamin D3, 2,000 unit cap Take 2 tablets by mouth once daily. Insulin Sunburst, Disposable, (BD ULTRAFINE III MINI PEN) 31 x 3/16 " Ndle 1 Each three times daily. USE WITH INSULIN PENS syringe w-ndl, disp,insul,1ml(BD INSULIN SYRINGE ULT-FINE II 1 ML 31 X 5/16") Use as directed. PAST MEDICAL HISTORY No date: Morbid obesity with BMI of 40.0-44.9, adult (HCC) No date: PMH - PAST MEDICAL HISTORY OF Comment: menarche at age 8 years No date: Seizure disorder ([facility]) Comment: none since childhood after treated with Tegretol for 2 years 07/22/2005: Type 1 diabetes mellitus Comment: Type (06/24/1999): dx type 1 diabetes. No date: Varicella without mention of complication Comment: age 3 or 4 years Social History Tobacco Use Smoking status: Never Smokeless tobacco: Never Tobacco comments: outside Vaping Use Vaping status: Never Used Substance Use Topics Alcohol use: No Drug use: No Component Latest Ref Rng & Units 04/04/2020 04/04/2021 04/07/2021 02/14/2022 Protein, Total 6.3 - 8.0 g/dL 7.0 6.9 7.1 Albumin 3.9 - 4.9 g/dL 4.1 4.4 4.2 Calcium 8.5 - 10.2 mg/dL 9.0 9.6 9.6 Bilirubin, Total 0.2 - 1.3 mg/dL 0.5 0.4 0.4 Alkaline Phosphatase 34 - 123 U/L 83 91 102 AST 13 - 35 U/L 20 22 20 Glucose 74 - 99 mg/dL 159 (H) 59 (L) 253 (H) BUN 7 - 21 mg/dL 11 9 17 Creatinine 0.58 - 0.96 mg/dL 0.59 0.67 0.70 Sodium 136 - 144 mmol/L 137 139 135 (L) Potassium 3.7 - 5.1 mmol/L 3.9 3.7 5.4 (H) Chloride 97 - 105 mmol/L 106 (H) 103 103 CO2 22 - 30 mmol/L 24 23 24 Anion Gap 9 - 18 mmol/L 7 (L) 13 8 (L) ALT 7 - 38 U/L 7 16 20 eGFR- >60 >60 eGFR-All Other Races . >60 >60 eGFR >=60 mL/min/1.73m 120 WBC 3.70 - 11.00 k/uL 8.81 RBC 3.90 - 5.20 m/uL 5.42 (H) Hemoglobin 11.5 - 15.5 g/dL 15.6 (H) Hematocrit 36.0 - 46.0 % 48.9 (H) MCV 80.0 - 100.0 fL 90.2 MCH 26.0 - 34.0 pG 28.8 MCHC 30.5 - 36.0 g/dL 31.9 RDW-CV 11.5 - 15.0 % 12.8 Platelet Count 150 - 400 k/uL 366 MPV 9.0 - 12.7 fL 10.2 Absolute nRBC <0.01 k/uL <0.01 Cholesterol, Total <200 mg/dL 153 201 (H) 196 Triglyceride <150 mg/dL 53 87 45 HDL Cholesterol >39 mg/dL 44 53 54 LDL Cholesterol <100 mg/dL 98 131 (H) 133 (H) Non HDL Cholesterol <130 mg/dL 109 148 (H) 142 (H) Fasting Time hrs 12 12 12 VLDL Cholesterol <30 mg/dL 11 17 9 TC:HDL Ratio <5.10 3.48 3.79 3.63 LDL:HDL Ratio <2.54 2.23 2.47 2.46 Creatinine, Ur Random (UCRR) 20 - 300 mg/dL 20.9 136.9 Albumin, Urine Random mg/L <12.0 27.8 Albumin/Creat Ratio <30 mg/g Not calculated 20 HIV 12 Combo (Ag/Ab) Non Reactive Non Reactive HIV-1/2 AB Test Not Indicated HIV Interpretation Negative Hemoglobin A1C 4.3 - 5.6 % 7.3 (H) 7.4 (H) 7.7 (H) Estimated Average Glucose mg/dL 163 166 174 Hep C Antibody IA Negative Negative Vitamin D 25 Hydroxy 31.0 - 80.0 ng/mL 19.7 (L) ASSESSMENT/PLAN: 1. Routine medical exam - ICD9: V70.0, ICD10: Z00.00 (primary diagnosis) - Endorse healthy diet and regular exercise - Calcium intake with supplements or by diet of 1000 mg/day for under 50, 3792-7040 mg/day for 50+ 2. Type 1 diabetes mellitus without complication (HCC) - ICD9: 250.01, ICD10: E10.9 Well controlled. Followed by Dr. Harvey Andrew endocrinlogist [facility] - ALBUMIN/CREATININE RATIO, URINE - HEMOGLOBIN A1C - LIPID PANEL BASIC 3. Encounter for immunization - ICD9: V03.89, ICD10: Z23 - PFIZER-BIONTECH COVID-19 VACCINE AGE 12+ YR - endorse booster in the fall when new vaccine is out 4. Screening for cervical cancer - ICD9: V76.2, ICD10: Z12.4 Dr. Mckeon/Chapis Nash SUGAR PRESSER 5. Screening for depression - ICD9: V79.0, ICD10: Z13.31 - DEPRESSION SCREENING 6. Encounter for screening examination for other mental health and behavioral disorders - ICD9: V79.8, ICD10: Z13.39 - ANXIETY SCREENING 7. Screening for diabetic retinopathy - ICD9: V80.2, ICD10: Z13.[address] Maxwell - CONSULT TO OPHTHALMOLOGY 8. Class 1 obesity due to excess calories with serious comorbidity and body mass index (BMI) of 31.0 to 31.9 in adult - ICD9: 278.00, V85.31, ICD10: E66.09, Z68.31 She has lost 80lbs on Qysmia. 1 year follow up MD Maki Reilly APRN.POWER HAIR CLIPPER documented in this encounter [facility] 08-20-2023 History of Presen t illness Narrative Radiology Service Progress Note PATIENT NAME: Pauly Whitehead DATE OF SERVICE: August 20, 2023 TIME: 9:20 AM PATIENT IDENTITY VERIFICATION COMPLETED USING TWO (2) IDENTIFIERS: Name and Date of confirmed by patient verbally. FALL SCREENING: Has the patient had 2 falls in the last year or 1 fall with injury or currently using an Ambulatory Assistive Device (Walker, Cane, Wheelchair, Crutches, etc.)? No PATIENT GENDER DATA: Female. status: : No status: NO. PATIENT RELEVANT IMPLANT DATA REVIEWED: Yes PATIENT PRESENTS WITH AN IMPLANTABLE OR ATTACHED ASSOCIATE PROFESSOR OF LIBRARY SCIENCE: No RADIOLOGY DEPARTMENT: General X-ray: Exam(s) Completed: Lower Extremity X-Ray(s): Foot, Right PERIPHERAL IV DATA: Not applicable SIGNED BY: RT Logan(R) August 20, 2023 9:20 AM documented in this encounter [facility] 08-20-2023 Instructions Elie Carvajal - 08/20/2023 9:06 AM EST Try gel padding to eliminate rubbing on toe Get xrays of right foot Could consider surgical correction if necessary documented in this encounter [facility] 08-20-2023 History of Presen t illness Narrative Consultation requested by Dr. Castillo for an opinion regarding right foot pain. My final recommendations will be communicated back to the requesting physician by way of shared Medical record or letter to requesting physician via US mail. Initial Office Visit Subjective: This 28 year old female presents to clinic for diabetic foot check. Patient has the following complaints: right foot pain. Patient presnets to clinic for evaluation of right foot. She has painful skin lesion to the lateral aspect of irght 5th toe. Just noticed about 3 weeks ago. Grew concerned with the pain so she went to urgent care . She was subsequently referred here. She is treating with [facility]. Patient admits to being diabetic for 24 years now. Patient -B/T/N in feet at this time. Patient -pain in legs when walking. No other pedal complaints at this time. No change in medications or medical history since last visit. PAIN EVALUATION No data found in the last 1 encounters. Hemoglobin A1C Date Value 02/11/2023 6.4 % 02/14/2022 7.7 % 04/04/2021 7.4 % 04/04/2020 7.3 % 07/03/2018 8.3 12/17/2017 7.7 06/07/2017 7.9 12/13/2016 8.2 % 01/03/2016 8.6 % 10/08/2015 8.1 % 07/08/2015 8.7 % PCP: Fe Tolentino MD PAST MEDICAL HISTORY Diagnosis Date Morbid obesity with BMI of 40.0-44.9, adult (HCC) PMH - PAST MEDICAL HISTORY OF menarche at age 8 years Seizure disorder (HCC) none since childhood after treated with Tegretol for 2 years Type 1 diabetes mellitus 07/22/2005 Type (06/24/1999): dx type 1 diabetes. Varicella without mention of complication age 3 or 4 years Current Outpatient Medications Medication Sig QSYMIA 15-92 mg 24 Hr Capsule TAKE ONE CAPSULE BY MOUTH DAILY DIRECTED insulin lispro (HUMALOG) 100 unit/mL injection See Instructions, 120 units daily in insulin pump, # 110 mL, 3 Refill(s), Pharmacy: [facility] atorvastatin (LIPITOR) 20 mg tablet Take by mouth. empagliflozin (JARDIANCE) 25 mg tablet Take by mouth. insulin needles, DISPOSABLE, (PEN NEEDLE) 31 gauge x 5/16" ndle Use as directed 3-4 times daily with injections glucagon, human recombinant, (GLUCAGON EMERGENCY KIT, HUMAN,) 1 mg injection Inject 1 mg subcutaneously as directed. Dx: E10.9, Uses daily insulin Cholecalciferol, Vitamin D3, 2,000 unit cap Take 2 tablets by mouth once daily. Insulin Sunburst, Disposable, (BD ULTRAFINE III MINI PEN) 31 x 3/16 " Ndle 1 Each three times daily. USE WITH INSULIN PENS syringe w-ndl, disp,insul,1ml(BD INSULIN SYRINGE ULT-FINE II 1 ML 31 X 5/16") Use as directed. No current facility-administered medications for this visit. ALLERGIES Allergen Reactions [place] Hives PAST SURGICAL HISTORY Procedure Laterality Date TYMPANOSTOMY LOCAL/TOPICAL ANESTHESIA FAMILY HISTORY Problem Relation Age of Onset Diabetes Other maternal and paternal side Heart Mother Hypertension Father Lipids Father Social History Tobacco Use Smoking status: Never Smokeless tobacco: Never Tobacco comments: outside Vaping Use Vaping Use: Never used Substance Use Topics Alcohol use: No Drug use: No REVIEW OF SYSTEMS GENERAL: Negative for Malaise, significant weight loss, fever RESPIRATORY: Negative for cough, wheezing and shortness of breath CARDIOVASCULAR: Negative for chest pain, leg swelling and palpitations GI: Negative for abdominal discomfort, blood in stools or black stools and change in bowel habits : Negative for dysuria, frequency and incontinence MUSCULOSKELETAL: Negative for joint pain or swelling, back pain, and muscle pain. SKIN: Negative for lesions, rash, and itching. HEMATOLOGY/LYMPHOLOGY Negative for prolonged bleeding, bruising easily, and swollen nodes. ENDOCRINE: Negative for cold or heat intolerance, polyuria, polydipsia and goiter. NEURO: negative The remainder of the review of systems is noncontributory. Objective: Patient presents to clinic ambulating in [facility] Constitutional: Pt is a well developed 28 year old female who is alert, oriented, cooperative and in no apparent distress. Eyes: Following during examination. No redness or drainage. Respiratory: RR normal and nonlabored. Even breathing. No evidence of distress. Psychology: Patient is engaged during conversation. Normal affect and mood. Does not appear depressed or anxious. Vasc: DP and PT pulses are palpable bilateral. CFT is less than 5 seconds bilateral. Skin temperature is warm to warm proximal to distal bilateral. There is no edema or varicosities noted. Hair growth present. Neuro: Protective sensation is intact to the foot and toes when tested with the 5.07 SWM bilateral. Vibratory sensation is intact at the hallux bilateral. No Significant neurological defecits. Derm: Inspection and palpation performed. Nails 1-5 b/l are normal in length and thickness. Skin is of normal turgor and texture. Hyperkeratosis noted to right 5th toe proximal phalanx and medial instep of left foot. NO ulcerations, scars, verruca or other lesions noted. Rash is noted to b/l midfoot Ortho: Ankle joint DF is full with the knee extended and full with knee flexed. No pain or crepitus noted. STJ, MTJ ROM are full and free of pain or crepitus. Muscle strength is 5/5 for dorsiflexors, plantarflexors, inverters, everters. 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 Assessment: (L84) Callus (primary encounter diagnosis) (M20.41) Hammertoe of right foot (E10.9) Type 1 diabetes mellitus without complication (HCC) (B35.3) Tinea pedis of both feet Plan: 1. Patient was seen and evaluated. 2. Patient was instructed on the continued importance of diabetic foot care along with proper diet and keeping their blood sugar under control to prevent complications. Instructions given both oral and written. 3. Discussed callus of right 5th toe. The callus is caused by deformity of right 5th toe. Options include periodic debridement, use of corn pad, surgical correction. Surgical correction likely could include flexor tenotomy vs flexor tenotomy and derotational arthroplasty. Will give her pad and obtain xray. Small amount of debridement was performed today. Elected to hold on acid becaue the condition is so small and fear of blistering is of significance especially on diabetic who plans to work today. In order to perform a complete physical exam, limited shaving of callus area was performed. This incidental service is integral to the evaluation and management visit in order to appropriately manage and treat the patient (for their complaint or for this visit). 4. Porokeratosis of left foot reduced with dremmel 5. Will provide lotrisone for rash to b/l feet. Use until condition improved. Elie Carvajal DPM Patient presents with: Right 5th Toe - New, Pain, Callous Patient presents for evaluation of callous to outer right 5th toe. States that she noticed it about 3 weeks ago. Some tenderness after on her feet for a long time. documented in this encounter [facility] 08-03-2023 History of Presen t illness Narrative Images from the original note were not included. Subjective Came in with complaints of sore wound on outer right pinky toe. Patient says it happened about a week ago patient says it is very sore because she works 12-hour days. Patient is diabetic. Patient denies any other signs or symptoms. The history is provided by the patient. No data processing systems project planner was used. Review of Systems Constitutional: Negative. Skin: Negative. Objective Physical Exam Constitutional: Appearance: Normal appearance. Pulmonary: Effort: Pulmonary effort is normal. Musculoskeletal: Feet: Feet: Comments: Small circular area with firm section in the middle, no redness noted. No drainage noted. Neurological: Mental Status: She is alert. PAST MEDICAL HISTORY Diagnosis Date Morbid obesity with BMI of 40.0-44.9, adult (HCC) PMH - PAST MEDICAL HISTORY OF menarche at age 8 years Seizure disorder (HCC) none since childhood after treated with Tegretol for 2 years Type 1 diabetes mellitus 07/22/2005 Type (06/24/1999): dx type 1 diabetes. Varicella without mention of complication age 3 or 4 years PAST SURGICAL HISTORY Procedure Laterality Date TYMPANOSTOMY LOCAL/TOPICAL ANESTHESIA ALLERGIES [place] MEDICATIONS QSYMIA 15-92 mg 24 Hr Capsule TAKE ONE CAPSULE BY MOUTH DAILY DIRECTED insulin lispro (HUMALOG) 100 unit/mL injection See Instructions, 120 units daily in insulin pump, # 110 mL, 3 Refill(s), Pharmacy: [facility] atorvastatin (LIPITOR) 20 mg tablet Take by mouth. empagliflozin (JARDIANCE) 25 mg tablet Take by mouth. insulin needles, DISPOSABLE, (PEN NEEDLE) 31 gauge x 5/16" ndle Use as directed 3-4 times daily with injections glucagon, human recombinant, (GLUCAGON EMERGENCY KIT, HUMAN,) 1 mg injection Inject 1 mg subcutaneously as directed. Dx: E10.9, Uses daily insulin Cholecalciferol, Vitamin D3, 2,000 unit cap Take 2 tablets by mouth once daily. Insulin Sunburst, Disposable, (BD ULTRAFINE III MINI PEN) 31 x 3/16 " Ndle 1 Each three times daily. USE WITH INSULIN PENS syringe w-ndl, disp,insul,1ml(BD INSULIN SYRINGE ULT-FINE II 1 ML 31 X 5/16") Use as directed. FAMILY HISTORY Problem Relation Age of Onset Diabetes Other maternal and paternal side Heart Mother Hypertension Father Lipids Father Social History Tobacco Use Smoking status: Never Smokeless tobacco: Never Tobacco comments: outside Substance Use Topics Alcohol use: No Drug use: No ASSESSMENT/PLAN: 1. Open wound of toe, initial encounter - ICD9: 893.0, ICD10: S91.109A - CONSULT TO PODIATRY Appears to possibly be the start of a corn. Patient should follow-up with podiatry due to being diabetic and having a sore foot wound. Patient was okay with this care plan and will be set up for an appointment before she leaves today. Ivette Castillo APRN.MEKA documented in this encounter [facility] 02-14-2023 History of Presen t illness Narrative Chief Complaint Patient presents with: Physical HPI Pauly Whitehead is a 28 year old female who presents here today for Above Complaints. Pauly is an established patient of Dr. Erum MD. She is a new patient to me today. Here today for routine annual visit. No concerns or complaints. Has paperwork to fill out from employer. DM Type 1 DM, follows with Patient reports she is feeling well overall in regards to diabetes A1C 6.4% on Saturday. Patient's last HgA1C was 7.7 -- 1 year ago. Current regimen: humalog from insulin pump and daily jardiance Tolerating well Denies polyuria, polydipsia, numbness, tingling or pain in extremities, new or unusual visual symptoms, unintended weight changes, lightheadedness/dizziness, bowel changes/loose stools, chest pain or dyspnea HLD --- Lipitor 20 mg daily. Component Latest Ref Rng & Units 02/11/2023 Cholesterol, Total <200 mg/dL 150 Triglyceride <150 mg/dL 40 HDL Cholesterol >39 mg/dL 42 Non HDL Cholesterol <130 mg/dL 108 Fasting Time hrs 12 VLDL Cholesterol <30 mg/dL 8 TC:HDL Ratio <5.10 3.57 LDL Cholesterol <100 mg/dL 100 (H) LDL:HDL Ratio <2.54 2.38 Weight management -- Seeing Dr. Joe Gaytan for weight loss. Started on Qysmia in May. Lost 14% of body weight since starting it. 257 lbs last March, down to 219 lbs today. Also watching diet and increasing exercise with this regimen. Past medical history, appointments, medications, allergies reviewed. Previous Medical History PAST MEDICAL HISTORY Diagnosis Date Morbid obesity with BMI of 40.0-44.9, adult (HCC) PMH - PAST MEDICAL HISTORY OF menarche at age 8 years Seizure disorder ([facility]) none since childhood after treated with Tegretol for 2 years Type 1 diabetes mellitus 07/22/2005 Type (06/24/1999): dx type 1 diabetes. Varicella without mention of complication age 3 or 4 years Previous Surgical History PAST SURGICAL HISTORY Procedure Laterality Date TYMPANOSTOMY LOCAL/TOPICAL ANESTHESIA Family History FAMILY HISTORY Problem Relation Age of Onset Diabetes Other maternal and paternal side Heart Mother Hypertension Father Lipids Father Patient Allergies ALLERGIES Allergen Reactions [place] Hives Current Medications Current Outpatient Medications on File Prior to Visit Medication Sig insulin lispro (HUMALOG) 100 unit/mL injection See Instructions, 120 units daily in insulin pump, # 110 mL, 3 Refill(s), Pharmacy: [facility] traZODone (DESYREL) 50 mg tablet Take 1.5-2 tablets by mouth daily at bedtime. atorvastatin (LIPITOR) 20 mg tablet Take by mouth. empagliflozin (JARDIANCE) 25 mg tablet Take by mouth. insulin needles, DISPOSABLE, (PEN NEEDLE) 31 gauge x 5/16" ndle Use as directed 3-4 times daily with injections glucagon, human recombinant, (GLUCAGON EMERGENCY KIT, HUMAN,) 1 mg injection Inject 1 mg subcutaneously as directed. Dx: E10.9, Uses daily insulin Cholecalciferol, Vitamin D3, 2,000 unit cap Take 2 tablets by mouth once daily. Insulin Sunburst, Disposable, (BD ULTRAFINE III MINI PEN) 31 x 3/16 " Ndle 1 Each three times daily. USE WITH INSULIN PENS syringe w-ndl, disp,insul,1ml(BD INSULIN SYRINGE ULT-FINE II 1 ML 31 X 5/16") Use as directed. lisinopril (ZESTRIL, PRINIVIL) 20 mg tablet topiramate (TOPAMAX) 25 mg tablet Take 1 tablet by mouth daily at bedtime. insulin lispro (HUMALOG KWIKPEN INSULIN) 100 unit/mL Insulin pump per Dr. Harvey Andrew (Patient not taking: Reported on 04/17/2022) Levonorgestrel-Ethinyl Estrad (AVIANE) 0.1mg - 20mcg per tablet Take 1 tablet by mouth once daily. No current facility-administered medications on file prior to visit. Social History Social History Tobacco Use Smoking status: Never Smokeless tobacco: Never Tobacco comments: outside Substance Use Topics Alcohol use: No Drug use: No REVIEW OF SYSTEMS: as above Reviewed relevant PMHx, PSHx, Social Hx, current medications and allergies. Review of Symptoms REVIEW OF SYSTEMS See HPI. All other systems are negative EXAM: BP 120/60 (BP Site: Left Arm, BP Position: Sitting, BP Cuff Size: Regular Adult) Pulse 60 Resp 14 Ht 158.5 cm (5' 2.4") Wt 99.4 kg (219 lb 3.2 oz) LMP 04/09/2022 (Approximate) BMI 39.58 kg/m General Appearance: Well appearing, alert, in no acute distress, well-hydrated, well nourished.. Skin: Skin color, texture, turgor normal, no suspicious rashes or lesions. Head: Normocephalic, no masses, lesions, tenderness or abnormalities. Neck: Supple, no adenopathy; thyroid symmetric, normal size, no bruits. Back:no pain to palpation of vertebrae, good flexion and extension, good range of motion, no muscle tenderness, reflexes are 2+ and symmetric, motor and sensory appear to be normal, negative SLR test, no evidence of scoliosis Lungs: Lungs clear to auscultation. No wheezing, rhonchi, rales.. Heart: RRR without murmur, gallop, or rubs. No ectopy. Abdomen: Normal abdominal exam, Abdomen soft, non-tender. Bowel sounds normal. No masses, organomegaly. Extremities: No deformities, edema, skin discoloration, clubbing or cyanosis. Good capillary refill. . Musculoskeletal: No joint swelling, deformity, or tenderness. Neurologic: Gait normal. Reflexes normal and symmetric. Sensation grossly intact.. Health Maintenance List URINE ALBUMIN:CREATININE RATIO due on 04/04/2022 DIABETIC FOOT EXAM due on 04/07/2022 DEPRESSION ASSESSMENT Never done DILATED RETINAL EXAM due on 2023 HPV TESTING due on 2023 PAP TESTING due on 07/28/2023 COVID-19 VACCINE(4 - Pfizer series) due on 02/15/2024 ANNUAL PCP TEAM CHRONIC DISEASE VISIT due on 02/15/2023 INFLUENZA(1) due on 02/22/2023 HBA1C due on 08/14/2023 LDL CHOLESTEROL due on 02/12/2024 DTAP,TDAP,TD(6 - Td or Tdap) due on 03/14/2026 HEPATITIS B Completed HPV VACCINE Completed HEPATITIS C SCREENING Completed HIV SCREENING Completed PNEUMOCOCCAL Completed ASSESSMENT/PLAN: 1. Wellness examination - ICD9: V70.0, ICD10: Z00.00 (primary diagnosis) - Counseled on healthy diet and regular exercise - Calcium intake with supplements or by diet of 1000 mg/day for under 50, 0426-9469 mg/day for 50+ - Discussed need and benefit for weight loss. BMI 39.58 kg/(m^2) - Depression screening tool completed and reviewed with patient. Based on score and interview, patient is not at risk for depression and recommended no further intervention at this time. - Follow up for annual exam in one year - Continue with OBGYN for routine screening for PAP/HPV. - Paperwork filled out for employer and given to pt during appointment. 2. Type 1 diabetes mellitus without complication (HCC) - ICD9: 250.01, ICD10: E10.9 - Controlled - Continue current medications 3. Mixed hyperlipidemia - ICD9: 272.2, ICD10: E78.2 - Controlled - Continue current medications - Counseled on healthy diet and regular exercise 4. Obesity, Class II, BMI 35-39.9 - ICD9: 278.00, ICD10: E66.9 Weight decreasing Continue with weight management regimen with Dr. Joe Gaytan. - Behavioral intervention, - Pharmacological intervention, - Eat well program, and - Continue current medications RTO annually and as needed. Prescription instructions reviewed with patient as applicable. Potential red flag symptoms discussed with the patient. Reviewed appropriate action plan to take if red flag symptoms occur. Patient agreeable to treatment plan. Marnie Wallace APRN.SUGAR PRESSER [address] [place] [address] documented in this encounter [facility] 06-01-2022 Miscellaneous Notes Can we please schedule her on for a nurse visit for EKG? Thanks! Orders placed for EKG. documented in this encounter [facility] 05-31-[address] Mckeon wanted to start Qsymia would be OK. It is not something that Fe Tolentino MD usually orders. Pt inquiring about provider approval for starting Qsymia as well as an order for EKG. Please review and advise. Thank you. RAE Amin documented in this encounter [facility] 04-18-2022 Note [facility] Work Phone: Pap Smear Specimen Adequacy April 18, 2022 8:22am Comment . Satisfactory for evaluation. No endocervical component is identified. Comment on above: Satisfactory for marlene luation. No endocervical component is identified. 04-18-2022 Note [facility] Pap Smear Specimen Adequacy April 18, 2022 8:22am Comment . Satisfactory for evaluation. No endocervical component is identified. Comment on above: Satisfactory for marlene luation. No endocervical component is identified. 04-17-2022 History of Presen t illness Narrative Images from the original note were not included. [facility]PART[facility] OF [facility]ASCULAR SURGERY OUTPATIENT VISIT DATE April 17, 2022 OUTPATIENT VISIT TYPE CONSULTATION SERVICE DATE: 04/17/2022 SERVICE TIME: 9:18 AM PRIMARY CARE PHYSICIAN: Fe Tolentino MD REFERRING PROVIDER: Maki Ramirez [address] [place] [id number] Consult requested for an opinion regarding the evaluation and treatment of the above. My final impression and recommendations will be communicated back to the requesting physician by way of the shared medical record or letter via US mail. CHIEF COMPLAINT: Patient presents with: New Patient History of Present Illness: Patient is a 27 year old White female presenting for consultation, evaluation and possible treatment of spider veins. Predisposing factors included not significant. No specific history of injury or prior problems. Relieving factors include elevation of legs and reduced activity with mild improvement in symptoms. Patient denies DVT, phlebitis, and treatment with blood thinners. PAIN ASSESSMENT: PAIN EVALUATION No data found in the last 1 encounters. Obstetric History T0 L0 SAB0 IAB0 Ectopic0 Multiple0 Live Births0 Duration of Symptoms: Progressive PREVIOUS TESTS: None PAST MEDICAL HISTORY Diagnosis Date Morbid obesity with BMI of 40.0-44.9, adult (HCC) PMH - PAST MEDICAL HISTORY OF menarche at age 8 years Seizure disorder ([facility]) none since childhood after treated with Tegretol for 2 years Type 1 diabetes mellitus 07/22/2005 Type (06/24/1999): dx type 1 diabetes. Varicella without mention of complication age 3 or 4 years PAST SURGICAL HISTORY Procedure Laterality Date TYMPANOSTOMY LOCAL/TOPICAL ANESTHESIA SOCIAL HISTORY: Social History Tobacco Use Smoking status: Never Smokeless tobacco: Never Tobacco comments: outside Substance Use Topics Alcohol use: No Drug use: No FAMILY HISTORY Problem Relation Age of Onset Diabetes Other maternal and paternal side Heart Mother Hypertension Father Lipids Father MEDICATIONS: insulin lispro (HUMALOG) 100 unit/mL injection See Instructions, 120 units daily in insulin pump, # 110 mL, 3 Refill(s), Pharmacy: [facility] lisinopril (ZESTRIL, PRINIVIL) 20 mg tablet topiramate (TOPAMAX) 25 mg tablet Take 1 tablet by mouth daily at bedtime. traZODone (DESYREL) 50 mg tablet Take 1.5-2 tablets by mouth daily at bedtime. atorvastatin (LIPITOR) 20 mg tablet Take by mouth. empagliflozin (JARDIANCE) 25 mg tablet Take by mouth. Levonorgestrel-Ethinyl Estrad (AVIANE) 0.1mg - 20mcg per tablet Take 1 tablet by mouth once daily. Cholecalciferol, Vitamin D3, 2,000 unit cap Take 2 tablets by mouth once daily. insulin lispro (HUMALOG KWIKPEN INSULIN) 100 unit/mL Insulin pump per Dr. Harvey Andrew (Patient not taking: Reported on 04/17/2022) insulin needles, DISPOSABLE, (PEN NEEDLE) 31 gauge x 5/16" ndle Use as directed 3-4 times daily with injections glucagon, human recombinant, (GLUCAGON EMERGENCY KIT, HUMAN,) 1 mg injection Inject 1 mg subcutaneously as directed. Dx: E10.9, Uses daily insulin Insulin Sunburst, Disposable, (BD ULTRAFINE III MINI PEN) 31 x 3/16 " Ndle 1 Each three times daily. USE WITH INSULIN PENS syringe w-ndl, disp,insul,1ml(BD INSULIN SYRINGE ULT-FINE II 1 ML 31 X 5/16") Use as directed. ALLERGIES: ALLERGIES Allergen Reactions [place] Hives REVIEW of SYSTEMS: Constitutional: No weight loss, malaise or fevers. HEENT: Negative for frequent or significant headaches Respiratory: Negative for cough, wheezing, or shortness of breath Cardiovascular: Negative for chest pain, leg swelling or palpitations Musculoskeletal: Negative for joint pain or swelling, back pain or muscle pain Integumentary: Negative for lesions, rash, and itching. PHYSICAL EXAM: VITALS: BP 138/85 Pulse 69 Ht 5' 3" (1.60m) Wt 257 lb (116.6kg) SpO2 100% LMP 04/09/2022 BMI 45.54 kg/(m^2). General: Alert, oriented, cooperative, healthy appearance Integumentary: Normal color, no rash, no lesions. HEENT: EOM, teeth in good repair. Pupils equal, round and reactive. Cardiovascular: Pulse regular. Lungs: No chest deformities or chest wall tenderness. Abdomen: Not examined Extremities: spider veins Neurological: AAOx3. Normal cognition and motor skills. Vascular: palpable do IMPRESSION: Ms. Whitehead is a 27 year old female with spider veins . PLAN and RECOMMENDATIONS: Discussed venous pathology Recommend use of compression, elevation and exercise as tolerated Pauly may benefit from sclerotherapy to treat areas of concern SIGNATURE: Olivia Newman DO PATIENT NAME: Pauly Whitehead DATE: April 17, 2022 TIME: 9:18 AM documented in this encounter [facility] 02-15-2022 History of Presen t illness Narrative SUBJECTIVE: PNEUMOCOCCAL(2 - PCV) due on 11/26/2013 PAP TESTING due on 07/28/2021 HPI Pauly Whitehead is a 27 year old female. Her PMH is significant for ACTIVE PROBLEM LIST Closed Fracture of Calcaneus History of seizures Vitamin D Deficiency Morbid Obesity With Bmi of 40.0-44.9, Adult (Hcc) Tachycardia Type 1 Diabetes Mellitus Without Complication (Hcc) Mixed Hyperlipidemia Notes she is in her usual state of health. 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 Notes adhering to DM diet. Exercising 5-6 days per week for 30 minutes. Followed by mosaic tiler: Harvey Andrew Notes diabetes currently well controlled. DIABETES MELLITUS: Without report of excessive thirst or increased frequency of urination, chest pain or dyspnea , numbness, tingling or pain in extremities, new or unusual visual symptoms, low sugar/hypoglycemic reactions, weight loss/gain, lightheadedness/dizziness, and bowel changes/loose stools. Patient's last HgA1C was Hemoglobin A1C (%) Date Value 02/14/2022 7.7 04/04/2021 7.4 04/04/2020 7.3 ) Hyperlipidemia. Ms. Whitehead reports doing well on current therapy. Per Dr Andrew. Her most recent lipid panels are: Cholesterol, Total (mg/dL) Date Value 02/14/2022 196 04/04/2021 201 04/04/2020 153 HDL Cholesterol (mg/dL) Date Value 02/14/2022 54 04/04/2021 53 04/04/2020 44 LDL Cholesterol (mg/dL) Date Value 02/14/2022 133 04/04/2021 131 04/04/2020 98 Triglyceride (mg/dL) Date Value 02/14/2022 45 04/04/2021 87 04/04/2020 53 Last 14 Encounter BP Readings: Date: BP: 02/15/2022 126/72 03/23/2020 122/84 11/12/2018 126/84 07/18/2017 100/78 04/03/2017 120/80 10/01/2016 126/68 04/11/2016 126/80 03/14/2016 102/80 2016 112/66 01/11/2016 104/78 11/11/2015 102/60 10/12/2015 104/62 07/15/2015 120/78 07/13/2015 128/82 Notes remote history of seizures as a child, no recent Notes follows with [facility] for eye exam, has an upcoming appointment. Sees Chapis Nash SQL DAT[employer]ASE DEVELOPER provider, has an upcoming appointment. Notes anxiety and insomnia are currently controlled. She notes doing well with Topamax and trazodone. No adverse effects noted. Defers counseling at this time Review of Systems Constitutional: Negative. Objective BP 126/72 Pulse 76 Resp 16 Ht 161.3 cm (5' 3.5") Wt 117.9 kg (260 lb) LMP 03/20/2017 SpO2 99% BMI 45.33 kg/m Physical Exam Vitals and nursing note reviewed. Constitutional: Appearance: Normal appearance. HENT: Head: Normocephalic and atraumatic. Eyes: Conjunctiva/sclera: Conjunctivae normal. Cardiovascular: Rate and Rhythm: Normal rate. Pulmonary: Effort: Pulmonary effort is normal. Abdominal: General: Bowel sounds are normal. Palpations: Abdomen is soft. Feet: Right foot: Skin integrity: Skin integrity normal. Left foot: Skin integrity: Skin integrity normal. Skin: General: Skin is warm and dry. Neurological: General: No focal deficit present. Mental Status: She is alert. Psychiatric: Mood and Affect: Mood normal. Behavior: Behavior normal. ALLERGIES Allergen Reactions [place] Hives Medications lisinopril (ZESTRIL, PRINIVIL) 20 mg tablet atorvastatin (LIPITOR) 20 mg tablet Take by mouth. empagliflozin (JARDIANCE) 25 mg tablet Take by mouth. insulin lispro (HUMALOG KWIKPEN INSULIN) 100 unit/mL Insulin pump per Dr. Harvey nAdrew Levonorgestrel-Ethinyl Estrad (AVIANE) 0.1mg - 20mcg per tablet Take 1 tablet by mouth once daily. insulin needles, DISPOSABLE, (PEN NEEDLE) 31 gauge x 5/16" ndle Use as directed 3-4 times daily with injections glucagon, human recombinant, (GLUCAGON EMERGENCY KIT, HUMAN,) 1 mg injection Inject 1 mg subcutaneously as directed. Dx: E10.9, Uses daily insulin Cholecalciferol, Vitamin D3, 2,000 unit cap Take 2 tablets by mouth once daily. Insulin Sunburst, Disposable, (BD ULTRAFINE III MINI PEN) 31 x 3/16 " Ndle 1 Each three times daily. USE WITH INSULIN PENS syringe w-ndl, disp,insul,1ml(BD INSULIN SYRINGE ULT-FINE II 1 ML 31 X 5/16") Use as directed. topiramate (TOPAMAX) 25 mg tablet Take 1 tablet by mouth daily at bedtime. traZODone (DESYREL) 50 mg tablet Take 1.5-2 tablets by mouth daily at bedtime. PAST MEDICAL HISTORY Diagnosis Date Morbid obesity with BMI of 40.0-44.9, adult (HCC) PMH - PAST MEDICAL HISTORY OF menarche at age 8 years Seizure disorder ([facility]) none since childhood after treated with Tegretol for 2 years Type 1 diabetes mellitus 07/22/2005 Type (06/24/1999): dx type 1 diabetes. Varicella without mention of complication age 3 or 4 years Social History Tobacco Use Smoking status: Never Smokeless tobacco: Never Tobacco comments: outside Substance Use Topics Alcohol use: No Drug use: No Component Latest Ref Rng & Units 04/04/2020 04/04/2021 04/07/2021 02/14/2022 Protein, Total 6.3 - 8.0 g/dL 7.0 6.9 7.1 Albumin 3.9 - 4.9 g/dL 4.1 4.4 4.2 Calcium 8.5 - 10.2 mg/dL 9.0 9.6 9.6 Bilirubin, Total 0.2 - 1.3 mg/dL 0.5 0.4 0.4 Alkaline Phosphatase 34 - 123 U/L 83 91 102 AST 13 - 35 U/L 20 22 20 Glucose 74 - 99 mg/dL 159 (H) 59 (L) 253 (H) BUN 7 - 21 mg/dL 11 9 17 Creatinine 0.58 - 0.96 mg/dL 0.59 0.67 0.70 Sodium 136 - 144 mmol/L 137 139 135 (L) Potassium 3.7 - 5.1 mmol/L 3.9 3.7 5.4 (H) Chloride 97 - 105 mmol/L 106 (H) 103 103 CO2 22 - 30 mmol/L 24 23 24 Anion Gap 9 - 18 mmol/L 7 (L) 13 8 (L) ALT 7 - 38 U/L 7 16 20 eGFR- >60 >60 eGFR-All Other Races . >60 >60 eGFR >=60 mL/min/1.73m 120 WBC 3.70 - 11.00 k/uL 8.81 RBC 3.90 - 5.20 m/uL 5.42 (H) Hemoglobin 11.5 - 15.5 g/dL 15.6 (H) Hematocrit 36.0 - 46.0 % 48.9 (H) MCV 80.0 - 100.0 fL 90.2 MCH 26.0 - 34.0 pG 28.8 MCHC 30.5 - 36.0 g/dL 31.9 RDW-CV 11.5 - 15.0 % 12.8 Platelet Count 150 - 400 k/uL 366 MPV 9.0 - 12.7 fL 10.2 Absolute nRBC <0.01 k/uL <0.01 Cholesterol, Total <200 mg/dL 153 201 (H) 196 Triglyceride <150 mg/dL 53 87 45 HDL Cholesterol >39 mg/dL 44 53 54 LDL Cholesterol <100 mg/dL 98 131 (H) 133 (H) Non HDL Cholesterol <130 mg/dL 109 148 (H) 142 (H) Fasting Time hrs 12 12 12 VLDL Cholesterol <30 mg/dL 11 17 9 TC:HDL Ratio <5.10 3.48 3.79 3.63 LDL:HDL Ratio <2.54 2.23 2.47 2.46 Creatinine, Ur Random (UCRR) 20 - 300 mg/dL 20.9 136.9 Albumin, Urine Random mg/L <12.0 27.8 Albumin/Creat Ratio <30 mg/g Not calculated 20 HIV 12 Combo (Ag/Ab) Non Reactive Non Reactive HIV-1/2 AB Test Not Indicated HIV Interpretation Negative Hemoglobin A1C 4.3 - 5.6 % 7.3 (H) 7.4 (H) 7.7 (H) Estimated Average Glucose mg/dL 163 166 174 Hep C Antibody IA Negative Negative Vitamin D 25 Hydroxy 31.0 - 80.0 ng/mL 19.7 (L) ASSESSMENT/PLAN: 1. Routine medical exam - ICD9: V70.0, ICD10: Z00.00 (primary diagnosis) - Counseled on healthy diet and regular exercise - Calcium intake with supplements or by diet of 1000 mg/day for under 50, 3662-3695 mg/day for 50+ 2. Type 1 diabetes mellitus without complication (HCC) - ICD9: 250.01, ICD10: E10.9 3. Mixed hyperlipidemia - ICD9: 272.2, ICD10: E78.2 Continue with DM, Mediterranean diets Controlled. Followed by Dr Andrew mosaic tiler - Continue current medications 4. Morbid obesity with BMI of 40.0-44.9, adult (HCC) - ICD9: 278.01, V85.41, ICD10: E66.01, Z68.41 Endorse portion control and routine exercise. Notes exercising 5-6 days per week 30 minutes, high intensity. Endorse increased duration/frequency to see if this helps attain weight loss. Consider Why Weight, Weight watchers, gas engine operator compressors, medical bariatrics. She is not interested in surgery. 5. Encounter for immunization - ICD9: V03.89, ICD10: Z23 - PNEUMOCOCCAL VACCINE (PREVNAR 20) 6. Anxiety - ICD9: 300.00, ICD10: F41.9 Currently well controlled, continue current treatment unchanged, continue to monitor - TRAZODONE 50 MG TABLET 7. Insomnia, unspecified type - ICD9: 780.52, ICD10: G47.00 Currently well controlled, continue current treatment unchanged, continue to monitor - TRAZODONE 50 MG TABLET 8. Vitamin D deficiency - ICD9: 268.9, ICD10: E55.9 Not consistently taking, recommend 4000 IU QD 9. Screening for cervical cancer - ICD9: V76.2, ICD10: Z12.4 Followed by Mattie Clark / [facility]; due this year 10. Spider veins of both lower extremities - ICD9: 454.9, ICD10: I83.93 Notes present of both legs, not painful. Interested in injections if appropriate. For now recommend switching from knee high compression socks to thigh high compression or OTC stockings/pantyhose with compression - CONSULT TO VASCULAR MEDICINE - Dr Newman or preferred 1 year follow up Fe Tolentino MD Form completed and provided at visit. 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 * Control hx (): JyX3v=7.8% (): YfH5l=7.5% (): WbS5u=04.5% (): JrF7g=5.8% (): VgJ1t=7.7% (11/29/09): ZyW0o=96.5% (05/10/10): SbJ7m=16.7% * Eye hx (11/20/05): exam Dr. Patel, no DM changes. (08/2007): exam Dr. Patel, no DM changes. (): exam Dr. Patel, no DM changes (01/2010): exam Dr. Patel, no DM changes per pt * Neuro hx (11/29/09): no resting acral dysesthesias. * Renal hx (): Urine albumin/creat=8 (): urine albumin = 42 mcg/mg creat (during menses) (): urine albumin = 3 mcg/mg creat (): urine albumin=3 mcg/mg creat (11/29/09): urine albumin <5 mcg/mg creat * Vascular hx (): yymj=387, TG=33, HDL=65, wYFD=467 (11/29/09): jwbs=764, YA=416, HDL=52, yFTO=126 documented as of this encounter (statuses as of 02/12/2022) [facility] History of Past illness Narrative* Problem Noted Date Resolved Date Other and unspecified hyperlipidemia 03/10/2015 07/23/2015 Sprain of foot, unspecified site 06/04/2006 04/11/2016 Plantar fascial fibromatosis 04/24/2006 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 * Control hx (): PuY2v=1.8% (): QiE3c=7.5% (): VlI0r=82.5% (): AoG1l=2.8% (): FzH1l=7.7% (11/29/09): UiU7p=36.5% (05/10/10): YvN8u=30.7% * Eye hx (11/20/05): exam Dr. Patel, no DM changes. (08/2007): exam Dr. Patel, no DM changes. (): exam Dr. Patel, no DM changes (01/2010): exam Dr. Patel, no DM changes per pt * Neuro hx (11/29/09): no resting acral dysesthesias. * Renal hx (): Urine albumin/creat=8 (): urine albumin = 42 mcg/mg creat (during menses) (): urine albumin = 3 mcg/mg creat (): urine albumin=3 mcg/mg creat (11/29/09): urine albumin <5 mcg/mg creat * Vascular hx (): wgvk=153, TG=33, HDL=65, eGMP=546 (11/29/09): eprs=519, KD=833, HDL=52, yXFP=520 documented as of this encounter (statuses as of 02/15/2022) [facility] History of Past illness Narrative* Problem Noted Date Resolved Date Other and unspecified hyperlipidemia 03/10/2015 07/23/2015 Sprain of foot, unspecified site 06/04/2006 04/11/2016 Plantar fascial fibromatosis 04/24/2006 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 * Control hx (): KhI9a=5.8% (): ZxT7v=0.5% (): CuK5l=16.5% (): OaA3f=7.8% (): TuG3f=6.7% (11/29/09): PiG0x=48.5% (05/10/10): WwP9y=10.7% * Eye hx (11/20/05): exam Dr. Patel, no DM changes. (08/2007): exam Dr. Patel, no DM changes. (): exam Dr. Patel, no DM changes (01/2010): exam Dr. Patel, no DM changes per pt * Neuro hx (11/29/09): no resting acral dysesthesias. * Renal hx (): Urine albumin/creat=8 (): urine albumin = 42 mcg/mg creat (during menses) (): urine albumin = 3 mcg/mg creat (): urine albumin=3 mcg/mg creat (11/29/09): urine albumin <5 mcg/mg creat * Vascular hx (): faqq=084, TG=33, HDL=65, dQFA=688 (11/29/09): juee=466, II=888, HDL=52, gOFO=034 documented as of this encounter (statuses as of 05/02/2022) [facility] History of Past illness Narrative* Problem Noted Date Resolved Date Other and unspecified hyperlipidemia 03/10/2015 07/23/2015 Sprain of foot, unspecified site 06/04/2006 04/11/2016 Plantar fascial fibromatosis 04/24/2006 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 * Control hx (): NxC3c=7.8% (): PqW6l=6.5% (): JyV2w=46.5% (): HyE8u=3.8% (): YqY9u=7.7% (11/29/09): ZcZ5b=84.5% (05/10/10): ToC1m=46.7% * Eye hx (11/20/05): exam Dr. Patel, no DM changes. (08/2007): exam Dr. Patel, no DM changes. (): exam Dr. Patel, no DM changes (01/2010): exam Dr. Patel, no DM changes per pt * Neuro hx (11/29/09): no resting acral dysesthesias. * Renal hx (): Urine albumin/creat=8 (): urine albumin = 42 mcg/mg creat (during menses) (): urine albumin = 3 mcg/mg creat (): urine albumin=3 mcg/mg creat (11/29/09): urine albumin <5 mcg/mg creat * Vascular hx (): azyl=670, TG=33, HDL=65, mDRF=561 (11/29/09): cddz=761, LD=791, HDL=52, pZGY=141 documented as of this encounter (statuses as of 05/31/2022) [facility] History of Past illness Narrative* Problem Noted Date Resolved Date Other and unspecified hyperlipidemia 03/10/2015 07/23/2015 Sprain of foot, unspecified site 06/04/2006 04/11/2016 Plantar fascial fibromatosis 04/24/2006 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 * Control hx (): JgM8i=6.8% (): WxP8f=6.5% (): EpI5n=81.5% (): ZfM4v=2.8% (): UjF0g=7.7% (11/29/09): RwB4f=40.5% (05/10/10): QpU8q=66.7% * Eye hx (11/20/05): exam Dr. Patel, no DM changes. (08/2007): exam Dr. Patel, no DM changes. (): exam Dr. Patel, no DM changes (01/2010): exam Dr. Patel, no DM changes per pt * Neuro hx (11/29/09): no resting acral dysesthesias. * Renal hx (): Urine albumin/creat=8 (): urine albumin = 42 mcg/mg creat (during menses) (): urine albumin = 3 mcg/mg creat (): urine albumin=3 mcg/mg creat (11/29/09): urine albumin <5 mcg/mg creat * Vascular hx (): ckkd=242, TG=33, HDL=65, aDNA=167 (11/29/09): urup=638, CR=505, HDL=52, gUBU=368 documented as of this encounter (statuses as of 06/01/2022) [facility] History of Past illness Narrative* Problem Noted Date Diagnosed Date Resolved Date Other and unspecified hyperlipidemia 03/10/2015 07/23/2015 Sprain of foot, unspecified site 06/04/2006 04/11/2016 Plantar fascial fibromatosis 04/24/2006 04/11/2016 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 * Control hx (): TzV2k=9.8% (): CvK7l=5.5% (): FdP9i=49.5% (): WsZ0d=4.8% (): TyP9p=6.7% (11/29/09): MrF7d=94.5% (05/10/10): GpH7r=82.7% * Eye hx (11/20/05): exam Dr. Patel, no DM changes. (08/2007): exam Dr. Patel, no DM changes. (): exam Dr. Patel, no DM changes (01/2010): exam Dr. Patel, no DM changes per pt * Neuro hx (11/29/09): no resting acral dysesthesias. * Renal hx (): Urine albumin/creat=8 (): urine albumin = 42 mcg/mg creat (during menses) (): urine albumin = 3 mcg/mg creat (): urine albumin=3 mcg/mg creat (11/29/09): urine albumin <5 mcg/mg creat * Vascular hx (): dqsb=675, TG=33, HDL=65, nWWT=926 (11/29/09): hvcc=646, NK=088, HDL=52, rFDB=637 documented as of this encounter (statuses as of 02/07/2023) [facility] History of Past illness Narrative* Problem Noted Date Diagnosed Date Resolved Date Other and unspecified hyperlipidemia 03/10/2015 07/23/2015 Sprain of foot, unspecified site 06/04/2006 04/11/2016 Plantar fascial fibromatosis 04/24/2006 04/11/2016 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 * Control hx (): OiA1r=2.8% (): UsP0l=8.5% (): ApR5q=59.5% (): ZsU0x=1.8% (): AfY0s=6.7% (11/29/09): XsQ6l=81.5% (05/10/10): CtE5y=63.7% * Eye hx (11/20/05): exam Dr. Patel, no DM changes. (08/2007): exam Dr. Patel, no DM changes. (): exam Dr. Patel, no DM changes (01/2010): exam Dr. Patel, no DM changes per pt * Neuro hx (11/29/09): no resting acral dysesthesias. * Renal hx (): Urine albumin/creat=8 (): urine albumin = 42 mcg/mg creat (during menses) (): urine albumin = 3 mcg/mg creat (): urine albumin=3 mcg/mg creat (11/29/09): urine albumin <5 mcg/mg creat * Vascular hx (): ydyi=874, TG=33, HDL=65, aTTQ=754 (11/29/09): dunn=387, QX=446, HDL=52, vRSY=808 documented as of this encounter (statuses as of 02/14/2023) [facility] History of Past illness Narrative* Problem Noted Date Diagnosed Date Resolved Date Other and unspecified hyperlipidemia 03/10/2015 07/23/2015 Sprain of foot, unspecified site 06/04/2006 04/11/2016 Plantar fascial fibromatosis 04/24/2006 04/11/2016 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 * Control hx (): AfT8s=5.8% (): PbB5p=7.5% (): GgZ2g=88.5% (): VuX8z=9.8% (): AoZ1x=1.7% (11/29/09): FmJ4a=69.5% (05/10/10): PwT1i=06.7% * Eye hx (11/20/05): exam Dr. Patel, no DM changes. (08/2007): exam Dr. Patel, no DM changes. (): exam Dr. Patel, no DM changes (01/2010): exam Dr. Patel, no DM changes per pt * Neuro hx (11/29/09): no resting acral dysesthesias. * Renal hx (): Urine albumin/creat=8 (): urine albumin = 42 mcg/mg creat (during menses) (): urine albumin = 3 mcg/mg creat (): urine albumin=3 mcg/mg creat (11/29/09): urine albumin <5 mcg/mg creat * Vascular hx (): tbzq=710, TG=33, HDL=65, aYLU=840 (11/29/09): abcw=083, AI=780, HDL=52, fBUT=661 documented as of this encounter (statuses as of 08/03/2023) [facility] History of Past illness Narrative* Problem Noted Date Diagnosed Date Resolved Date Other and unspecified hyperlipidemia 03/10/2015 07/23/2015 Sprain of foot, unspecified site 06/04/2006 04/11/2016 Plantar fascial fibromatosis 04/24/2006 04/11/2016 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 * Control hx (): ZxY9b=8.8% (): ZrD2s=4.5% (): EjT3a=79.5% (): SjC1r=3.8% (): IgC0x=9.7% (11/29/09): SgU8y=95.5% (05/10/10): LkH7e=83.7% * Eye hx (11/20/05): exam Dr. Patel, no DM changes. (08/2007): exam Dr. Patel, no DM changes. (): exam Dr. Patel, no DM changes (01/2010): exam Dr. Patel, no DM changes per pt * Neuro hx (11/29/09): no resting acral dysesthesias. * Renal hx (): Urine albumin/creat=8 (): urine albumin = 42 mcg/mg creat (during menses) (): urine albumin = 3 mcg/mg creat (): urine albumin=3 mcg/mg creat (11/29/09): urine albumin <5 mcg/mg creat * Vascular hx (): lpkn=730, TG=33, HDL=65, hGRN=359 (11/29/09): cfho=026, GC=430, HDL=52, rJTP=582 documented as of this encounter (statuses as of 08/20/2023) [facility] History of Past illness Narrative* Problem Noted Date Diagnosed Date Resolved Date Other and unspecified hyperlipidemia 03/10/2015 07/23/2015 Sprain of foot, unspecified site 06/04/2006 04/11/2016 Plantar fascial fibromatosis 04/24/2006 04/11/2016 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 * Control hx (): QoC4d=7.8% (): YuM7a=1.5% (): YdR4r=89.5% (): OgE2z=0.8% (): EhC4j=4.7% (11/29/09): NwB0w=47.5% (05/10/10): CmH6i=68.7% * Eye hx (11/20/05): exam Dr. Patel, no DM changes. (08/2007): exam Dr. Patel, no DM changes. (): exam Dr. Patel, no DM changes (01/2010): exam Dr. Patel, no DM changes per pt * Neuro hx (11/29/09): no resting acral dysesthesias. * Renal hx (): Urine albumin/creat=8 (): urine albumin = 42 mcg/mg creat (during menses) (): urine albumin = 3 mcg/mg creat (): urine albumin=3 mcg/mg creat (11/29/09): urine albumin <5 mcg/mg creat * Vascular hx (): btqz=075, TG=33, HDL=65, qHBZ=900 (11/29/09): hgxw=262, ZV=771, HDL=52, xETG=930 documented as of this encounter (statuses as of 08/21/2023) [facility] note* Diagnosis Vitamin D deficiency- Primary Unspecified vitamin D deficiency Type 1 diabetes mellitus without complication (HCC) Type I (juvenile type) diabetes mellitus without mention of complication, not stated as uncontrolled Mixed hyperlipidemia [facility] Diagnosis Routine medical exam- Primary Routine general medical examination at a health care facility Type 1 diabetes mellitus without complication (HCC) Type I (juvenile type) diabetes mellitus without mention of complication, not stated as uncontrolled Mixed hyperlipidemia Morbid obesity with BMI of 40.0-44.9, adult ([facility]) Morbid obesity Encounter for immunization Need for other specified prophylactic vaccination against single bacterial disease Anxiety Anxiety state, unspecified Insomnia, unspecified type Vitamin D deficiency Unspecified vitamin D deficiency Screening for cervical cancer Screening for malignant neoplasm of the cervix Spider veins of both lower extremities [facility]* Diagnosis Onset Date Resolution Status Essential hypertension acute Goiter acute Diabetes mellitus chronic Mixed hyperlipidemia chronic Obesity chronic Presence of insulin pump chr onic Essential hypertension acute Irregular menses acute Diabetes mellitus chronic Hyperlipidemia due to type 1 diabetes mellitus chronic Obesity chronic Encounter for routine gynecological examination noneactive [facility] Work Phone: Evaluation note* Diagnosis Venous (peripheral) insufficiency- Primary Unspecified venous (peripheral) insufficiency Spider veins of both lower extremities [facility]* Diagnosis Type 1 diabetes mellitus without complication (HCC)- Primary Type I (juvenile type) diabetes mellitus without mention of complication, not stated as uncontrolled Mixed hyperlipidemia Morbid obesity with BMI of 40.0-44.9, adult ([facility]) Morbid obesity Medication management Encounter for long-term (current) use of other medications documented in this encounter [facility] note* Diagnosis Onset Date Resolution Status Essential hypertension acute Irregular menses acute Diabetes mellitus chronic Hyperlipidemia due to type 1 diabetes mellitus chronic Obesity chronic Encounter for routine gynecological examination noneactive BMI 40.0-44.9, adult acute Essential hypertension acute Irregular menses acute Other obesity acute Diabetes mellitus chronic Hyperlipidemia due to type 1 diabetes mellitus chronic [facility] Work Phone: Evaluation note* Diagnosis Onset Date Resolution Status Essential hypertension acute Irregular menses acute Diabetes mellitus chronic Hyperlipidemia due to type 1 diabetes mellitus chronic Obesity chronic Encounter for routine gynecological examination noneactive BMI 40.0-44.9, adult acute Essential hypertension acute Irregular menses acute Other obesity acute Diabetes mellitus chronic Hyperlipidemia due to type 1 diabetes mellitus chronic BMI 40.0-44.9, adult acute Contraception management acu te Essential hypertension acute Irregular menses acute Non-proliferative diabetic retinopathy acute BMI 40.0-44.9, adult acute Essential hypertension acute Irregular menses acute Diabetes mellitus chronic Hyperlipidemia due to type 1 diabetes mellitus chronic Obesity [facility] Work Phone: Evaluation note* Diagnosis Onset Date Resolution Status BMI 40.0-44.9, adult acute Essential hypertension acute Irregular menses acute Other obesity acute Diabetes mellitus chronic Hyperlipidemia due to type 1 diabetes mellitus chronic BMI 40.0-44.9, adult acute Contraception management acu te Essential hypertension acute Irregular menses acute Non-proliferative diabetic retinopathy acute BMI 40.0-44.9, adult acute Essential hypertension acute Irregular menses acute Diabetes mellitus chronic Hyperlipidemia due to type 1 diabetes mellitus chronic Obesity [facility] Work Phone: Evaluation note* Diagnosis Onset Date Resolution Status BMI 39.0-39.9,adult acute Contraception management acu te Irregular menses acute Other obesity acute Hyperlipidemia due to type 1 diabetes mellitus chronic Diabetes mellitus type 1 chr onic Non-proliferative diabetic retinopathy chronic Presence of insulin pump chr onic BMI 39.0-39.9,adult acute Other obesity acute Diabetes mellitus type 1 chr onic Hyperlipidemia due to type 1 diabetes mellitus chronic BMI 39.0-39.9,adult acute Contraception management acu te Other obesity acute Diabetes mellitus type 1 chr onic Hyperlipidemia due to type 1 diabetes mellitus chronic Non-proliferative diabetic retinopathy chronic BMI 39.0-39.9,adult acute Contraception management acu te Encounter for medication monitoring acute Irregular menses acute Other obesity acute Hyperlipidemia due to type 1 diabetes mellitus [facility] Work Phone: Evaluation note* Diagnosis Type 1 diabetes mellitus without complication (HCC)- Primary Type I (juvenile type) diabetes mellitus without mention of complication, not stated as uncontrolled Mixed hyperlipidemia Routine medical exam Routine general medical examination at a health care facility [facility] Wellness examination- Primary Type 1 diabetes mellitus without complication (HCC) Type I (juvenile type) diabetes mellitus without mention of complication, not stated as uncontrolled Mixed hyperlipidemia Obesity, Class II, BMI 35-39.9 Obesity, unspecified Anxiety Anxiety state, unspecified Insomnia, unspecified type [facility]* Diagnosis Open wound of toe, initial encounter- Primary [facility]* Diagnosis Callus- Primary Corns and callosities Hammertoe of right foot Type 1 diabetes mellitus without complication (HCC) Type I (juvenile type) diabetes mellitus without mention of complication, not stated as uncontrolled Tinea pedis of both feet [facility]* Diagnosis Callus Corns and callosities Hammertoe of right foot Type 1 diabetes mellitus without complication (HCC) Type I (juvenile type) diabetes mellitus without mention of complication, not stated as uncontrolled [facility]* Diagnosis Routine medical exam- Primary Routine general medical examination at a health care facility Type 1 diabetes mellitus without complication (HCC) Type I (juvenile type) diabetes mellitus without mention of complication, not stated as uncontrolled Encounter for immunization Need for other specified prophylactic vaccination against single bacterial disease Screening for cervical cancer Screening for malignant neoplasm of the cervix Screening for depression Encounter for screening examination for other mental health and behavioral disorders Screening for diabetic retinopathy Screening for other eye conditions Class 1 obesity due to excess calories with serious comorbidity and body mass index (BMI) of 31.0 to 31.9 in adult [facility]* Diagnosis Callus- Primary Corns and callosities Hammertoe of right foot Diminished pulses in lower extremity Other symptoms involving cardiovascular system [facility]* Diagnosis Callus Corns and callosities Hammertoe of right foot [facility]* Diagnosis Hammertoe of right foot- Primary Callus Corns and callosities [facility]* Diagnosis History of seizures- Primary Other convulsions Mixed hyperlipidemia Type 1 diabetes mellitus without complication (HCC) Type I (juvenile type) diabetes mellitus without mention of complication, not stated as uncontrolled Class 1 obesity with body mass index (BMI) of 30.0 to 30.9 in adult, unspecified obesity type, unspecified whether serious comorbidity present Acquired hammer toe Other hammer toe (acquired) * Assessment & Plan Note - Phyllis Mcneill PA-C - 11/24/2024 2:00 PM EDTAssociated Problem(s): Class 1 obesity with body mass index (BMI) of 30.0 to 30.9 in adult Assessment: Pt reports 80 lb weight loss in the past 3 years on Qsymia, managed by weight mgmt in [place], Dr. Mckeon. Pt reports that she discussed upcoming procedure with Dr. Mckeon, and has been instructed to hold Qsymia for 7 days prior to upcoming surgery, and to take topiramate 50 mg BID while holding Qysmia. Pt instructed to take topiramate DOS. * Assessment & Plan Note - Phyllis Mcneill PA-C - 11/24/2024 1:58 PM EDTAssociated Problem(s): Type 1 diabetes mellitus without complication (HCC) Assessment: Managed with insulin pump and Jardiance. FBS 120-140s. A1C 7.0% 06/2024. Managed by endocrinology at [place], Dr. Harvey Andrew. Per PACC guidelines, patient was instructed to continue at same basal rate DOS. Patient was also instructed to inform DOS team of insulin pump. * Assessment & Plan Note - Phyllis Mcneill PA-C - 11/24/2024 1:57 PM EDTAssociated Problem(s): Mixed hyperlipidemia Assessment: Managed on Lipitor 5 days/week per mosaic tiler. * Assessment & Plan Note - Phyllis Mcneill PA-C - 11/24/2024 1:57 PM EDTAssociated Problem(s): History of seizures Assessment: Remote hx as a child, related to hypoglycemia. Was on Tegretol x 2 years. No recurrenceof seizures since childhood. documented in this encounter [facility] note* Diagnosis History of seizures- Primary Other convulsions Mixed hyperlipidemia Type 1 diabetes mellitus without complication (HCC) Type I (juvenile type) diabetes mellitus without mention of complication, not stated as uncontrolled Class 1 obesity with body mass index (BMI) of 30.0 to 30.9 in adult, unspecified obesity type, unspecified whether serious comorbidity present Hammertoe of right foot- Primary Callus Corns and callosities documented in this encounter [facility] note* Diagnosis History of seizures- Primary Other convulsions Mixed hyperlipidemia Type 1 diabetes mellitus without complication (HCC) Type I (juvenile type) diabetes mellitus without mention of complication, not stated as uncontrolled Class 1 obesity with body mass index (BMI) of 30.0 to 30.9 in adult, unspecified obesity type, unspecified whether serious comorbidity present Hammertoe of right foot- Primary Post-operative state Other postprocedural status documented in this encounter [facility] note* Diagnosis History of seizures- Primary Other convulsions Mixed hyperlipidemia Type 1 diabetes mellitus without complication (HCC) Type I (juvenile type) diabetes mellitus without mention of complication, not stated as uncontrolled Class 1 obesity with body mass index (BMI) of 30.0 to 30.9 in adult, unspecified obesity type, unspecified whether serious comorbidity present Post-operative state- Primary Other postprocedural status Hammertoe of right foot [facility] Diagnosis History of seizures- Primary Other convulsions Mixed hyperlipidemia Type 1 diabetes mellitus without complication (HCC) Type I (juvenile type) diabetes mellitus without mention of complication, not stated as uncontrolled Class 1 obesity with body mass index (BMI) of 30.0 to 30.9 in adult, unspecified obesity type, unspecified whether serious comorbidity present Post-operative state- Primary Other postprocedural status Hammertoe of right foot documented in this encounter [facility] for referral (narrative)* Outpatient Procedure (Routine) - Pending Review Specialty Diagnoses / Procedures Referred By Tania t Referred To [facility] Diagnoses Type 1 diabetes mellitus without complication (HCC) Mixed hyperlipidemia Morbid obesity with BMI of 40.0-44.9, adult (HCC) Medication management Procedures ECG COMPLETE ECG ROUTINE ECG W/LEAST 12 LDS W/I&R Sharita Rose APRN.CNP [address] [place] [address] [facility] [address] [place] [address] Referral ID Status Reason Start Date Expiration Date Visits Requested Visits Authorized [id number] Pending Review Auto-Generat ed Referral 06/01/2022 06/01/2023 1 1 [facility] for referral (narrative)* Diagnostic Procedure Only (Routine) - Closed Specialty Diagnoses / Procedures Referred By Contac t Referred To Contact XR IMAGING Diagnoses Callus Hammertoe of right foot Type 1 diabetes mellitus without complication (HCC) Procedures XR FOOT GENERAL 3V AP/LAT/OBL RIGHT RADEX FOOT COMPLETE MINIMUM 3 VIEWS Elie Carvajal [address] [place] [address] [place] [address] Referral ID Status Reason Start Date Expiration Date V isits Requested Visits Authorized [id number] Closed Auto-Generate d Referral 08/20/2023 09/18/2024 1 1 [facility] for referral (narrative)* Diagnostic Procedure Only (Routine) - Closed Specialty Diagnoses / Procedures Referred By Contac t Referred To Contact XR IMAGING Diagnoses Callus Hammertoe of right foot Type 1 diabetes mellitus without complication (HCC) Procedures XR FOOT GENERAL 3V AP/LAT/OBL RIGHT RADEX FOOT COMPLETE MINIMUM 3 VIEWS Elie Carvajal [address] [place] [address] [place] [address] Referral ID Status Reason Start Date Expiration Date V isits Requested Visits Authorized [id number] Closed Auto-Generate d Referral 08/20/2023 09/18/2024 1 1 [facility] for visit Narrative* Diagnostic Procedure Only (Routine) - Closed Specialty Diagnoses / Procedures Referred By Contac t Referred To Contact XR IMAGING Diagnoses Callus Hammertoe of right foot Type 1 diabetes mellitus without complication (HCC) Procedures XR FOOT GENERAL 3V AP/LAT/OBL RIGHT RADEX FOOT COMPLETE MINIMUM 3 VIEWS Elie Carvajal [address] [place] [address] [place] [address] Referral ID Status Reason Start Date Expiration Date V isits Requested Visits Authorized [id number] Closed Auto-Generate d Referral 08/20/2023 09/18/2024 1 1 [facility] for visit Narrative* Diagnostic Procedure Only (Routine) - Closed Specialty Diagnoses / Procedures Referred By Contac t Referred To Contact XR IMAGING Diagnoses Callus Hammertoe of right foot Procedures XR FOOT GENERAL 3V AP/LAT/OBL RIGHT RADEX FOOT COMPLETE MINIMUM 3 VIEWS Elie Carvajal [address] [facility] [address] [place] [address] Phone: tel: fax: [place] [address] Referral ID Status Reason Start Date Expiration Date V isits Requested Visits Authorized [id number] Closed Auto-Generate d Referral OON/Self Pay Override 08/25/2024 09/24/2025 1 1 [facility] for visit Narrative* (Routine) - New Request Specialty Diagnoses / Procedures Referred By Contac t Referred To Contact ANESTHESIOLOGY Diagnoses Needs pre-anesthesia assessment Procedures PREOP ANES OR PROXY B/4 SURG Elie Carvajal [address] [place] [address] Phone: tel: fax: Pre Anesthesia [address] [facility] [address] [place] [address] Phone: tel: fax: Referral ID Status Reason Start Date Expiration Date Visits Requested Visits Authorized [id number] New Request OON/Self Pay Override 11/17/2024 02/25/2026 1 1 [facility] Summary Purpose Family History No Family History Records Found Relationship Condition Age at Onset Recorded Date/T benito father Hypertension Unknown High blood cholesterol Unknown Advance Directives No Advanced Directives Records FoundNo Advanced Directives Records FoundNo Advanced Directives Records FoundNo Advanced Directives Records FoundNo Advanced Directives Records FoundNo Advanced Directives Records Found Reason for Referral Specialty Diagnoses / Procedures Referred By Tania honeycutt Referred To Contact Vascular Medicine Diagnoses Spider veins of both lower extremities Procedures CONSULT TO VASCULAR MEDICINE OFFICE/OUTPATIENT [facility] 60-74 MINUTES Maki Ramirez, RESPIRATORY EQUIPMENT ASSISTANT.POWER HAIR CLIPPER [address] [place] [address] Referral ID Status Reason Start Date Expiration Date Visits Requested Visits Authorized [id number] Pending Review PCP Requested Referral 02/15/2022 02/15/2023 1 1 Specialty Diagnoses / Procedures Referred By Tania honeycutt Referred To Contact Podiatry / PODIATRY Diagnoses Open wound of toe, initial encounter Procedures CONSULT TO PODIATRY OFFICE/OUTPATIENT [facility] 60 MINUTES Ivette Castillo, RESPIRATORY EQUIPMENT ASSISTANT.SUGAR PRESSER [address] [place] [address] [facility] [address] [place] [id number] Referral ID Status Reason Start Date Expiration Date Visits Requested Visits Authorized [id number] Authorized PCP Requested Referral OON/Self Pay Override 08/03/2023 08/02/2024 1 1 Chief Complaint and Reason for Visit Chief Complaint 4 M FU Annual (RADIO NEWS WRITER) Reason for Visit Essential hypertensi on Goiter Diabetes mellitus Mixed hyperlipidemia Obesity Presence of insulin pump Essential hypertension Irregular menses Diabetes mellitus Hyperlipidemia due to type 1 diabetes mellitus Obesity Encounter for routine gynecological examination Chief Complaint Annual (RADIO NEWS WRITER) weight management consult TYPE 2 DIABETES Reason for Visit Essential hypertensi on Irregular menses Diabetes mellitus Hyperlipidemia due to type 1 diabetes mellitus Obesity Encounter for routine gynecological examination BMI 40.0-44.9, adult Essential hypertension Irregular menses Other obesity Diabetes mellitus Hyperlipidemia due to type 1 diabetes mellitus Chief Complaint Annual (RADIO NEWS WRITER) weight management consult TYPE 2 DIABETES PREOP IUD insertion 2 month weight check Reason for Visit Essential hypertensi on Irregular menses Diabetes mellitus Hyperlipidemia due to type 1 diabetes mellitus Obesity Encounter for routine gynecological examination BMI 40.0-44.9, adult Essential hypertension Irregular menses Other obesity Diabetes mellitus Hyperlipidemia due to type 1 diabetes mellitus BMI 40.0-44.9, adult Contraception management Essential hypertension Irregular menses Non-proliferative diabetic retinopathy BMI 40.0-44.9, adult Essential hypertension Irregular menses Diabetes mellitus Hyperlipidemia due to type 1 diabetes mellitus Obesity Chief Complaint weight management co nsult TYPE 2 DIABETES PREOP IUD insertion 2 month weight check INT LABS TYPE 1 DM Reason for Visit BMI 40.0-44.9, adult Essential hypertension Irregular menses Other obesity Diabetes mellitus Hyperlipidemia due to type 1 diabetes mellitus BMI 40.0-44.9, adult Contraception management Essential hypertension Irregular menses Non-proliferative diabetic retinopathy BMI 40.0-44.9, adult Essential hypertension Irregular menses Diabetes mellitus Hyperlipidemia due to type 1 diabetes mellitus Obesity Chief Complaint INT LABS TYPE 1 DM Weight management FU 6 M FU BP/HR/WEIGHT BP/HR/WT 1 M FU Reason for Visit BMI 39.0-39.9,adult Contraception management Irregular menses Other obesity Hyperlipidemia due to type 1 diabetes mellitus Diabetes mellitus type 1 Non-proliferative diabetic retinopathy Presence of insulin pump BMI 39.0-39.9,adult Other obesity Diabetes mellitus type 1 Hyperlipidemia due to type 1 diabetes mellitus BMI 39.0-39.9,adult Contraception management Other obesity Diabetes mellitus type 1 Hyperlipidemia due to type 1 diabetes mellitus Non-proliferative diabetic retinopathy BMI 39.0-39.9,adult Contraception management Encounter for medication monitoring Irregular menses Other obesity Hyperlipidemia due to type 1 diabetes mellitus Additional Source Comments INFORMATION SOURCE (unrecogn ized section and content) DATE CREATED AUTHOR 04/18/2019 [facility] DATE CREATED AUTHOR AUTHOR'S ORGANIZ ATION 01/28/2020 [facility] DATE CREATED AUTHOR AUTHOR'S ORGANIZ ATION 02/15/2024 [facility] ([place]) DATE CREATED AUTHOR AUTHOR'S ORGANIZ ATION 11/01/2024 [facility] DATE CREATED AUTHOR AUTHOR'S ORGANIZ ATION 12/14/2024 [facility] DATE CREATED AUTHOR AUTHOR'S ORGANIZ ATION 01/09/2025 [facility] Source Comments (unrecognize d section and content) In the event this informatio n is protected by the Federal Confidentiality of Alcohol and Drug Abuse Patient Records regulations: The Federal rules restrict any use of the information to criminally investigate or prosecute any alcohol or drug abuse patient.[facility] the event this information is protected by the Federal Confidentiality of Alcohol and Drug Abuse Patient Records regulations: The Federal rules restrict any use of the information to criminally investigate or prosecute any alcohol or drug abuse patient.[facility] the event this information is protected by the Federal Confidentiality of Alcohol and Drug Abuse Patient Records regulations: The Federal rules restrict any use of the information to criminally investigate or prosecute any alcohol or drug abuse patient.[facility] the event this information is protected by the Federal Confidentiality of Alcohol and Drug Abuse Patient Records regulations: The Federal rules restrict any use of the information to criminally investigate or prosecute any alcohol or drug abuse patient.[facility] the event this information is protected by the Federal Confidentiality of Alcohol and Drug Abuse Patient Records regulations: The Federal rules restrict any use of the information to criminally investigate or prosecute any alcohol or drug abuse patient.[facility] the event this information is protected by the Federal Confidentiality of Alcohol and Drug Abuse Patient Records regulations: The Federal rules restrict any use of the information to criminally investigate or prosecute any alcohol or drug abuse patient.[facility] the event this information is protected by the Federal Confidentiality of Alcohol and Drug Abuse Patient Records regulations: The Federal rules restrict any use of the information to criminally investigate or prosecute any alcohol or drug abuse patient.[facility] the event this information is protected by the Federal Confidentiality of Alcohol and Drug Abuse Patient Records regulations: The Federal rules restrict any use of the information to criminally investigate or prosecute any alcohol or drug abuse patient.[facility] the event this information is protected by the Federal Confidentiality of Alcohol and Drug Abuse Patient Records regulations: The Federal rules restrict any use of the information to criminally investigate or prosecute any alcohol or drug abuse patient.[facility] the event this information is protected by the Federal Confidentiality of Alcohol and Drug Abuse Patient Records regulations: The Federal rules restrict any use of the information to criminally investigate or prosecute any alcohol or drug abuse patient.[facility] Hospital[facility] the event this information is protected by the Federal Confidentiality of Alcohol and Drug Abuse Patient Records regulations: The Federal rules restrict any use of the information to criminally investigate or prosecute any alcohol or drug abuse patient.[facility] Hospital[facility] the event this information is protected by the Federal Confidentiality of Alcohol and Drug Abuse Patient Records regulations: The Federal rules restrict any use of the information to criminally investigate or prosecute any alcohol or drug abuse patient.[facility] Hospital[facility] the event this information is protected by the Federal Confidentiality of Alcohol and Drug Abuse Patient Records regulations: The Federal rules restrict any use of the information to criminally investigate or prosecute any alcohol or drug abuse patient.[facility] Hospital[facility] the event this information is protected by the Federal Confidentiality of Alcohol and Drug Abuse Patient Records regulations: The Federal rules restrict any use of the information to criminally investigate or prosecute any alcohol or drug abuse patient.[facility] Hospital[facility] the event this information is protected by the Federal Confidentiality of Alcohol and Drug Abuse Patient Records regulations: The Federal rules restrict any use of the information to criminally investigate or prosecute any alcohol or drug abuse patient.[facility] Hospital[facility] the event this information is protected by the Federal Confidentiality of Alcohol and Drug Abuse Patient Records regulations: The Federal rules restrict any use of the information to criminally investigate or prosecute any alcohol or drug abuse patient.[facility] HospitalIn the event this information is protected by the Federal Confidentiality of Alcohol and Drug Abuse Patient Records regulations: The Federal rules restrict any use of the information to criminally investigate or prosecute any alcohol or drug abuse patient.[facility] HospitalIn the event this information is protected by the Federal Confidentiality of Alcohol and Drug Abuse Patient Records regulations: The Federal rules restrict any use of the information to criminally investigate or prosecute any alcohol or drug abuse patient.[facility] HospitalIn the event this information is protected by the Federal Confidentiality of Alcohol and Drug Abuse Patient Records regulations: The Federal rules restrict any use of the information to criminally investigate or prosecute any alcohol or drug abuse patient.[facility] HospitalIn the event this information is protected by the Federal Confidentiality of Alcohol and Drug Abuse Patient Records regulations: The Federal rules restrict any use of the information to criminally investigate or prosecute any alcohol or drug abuse patient.[facility] HospitalIn the event this information is protected by the Federal Confidentiality of Alcohol and Drug Abuse Patient Records regulations: The Federal rules restrict any use of the information to criminally investigate or prosecute any alcohol or drug abuse patient.[facility] HospitalIn the event this information is protected by the Federal Confidentiality of Alcohol and Drug Abuse Patient Records regulations: The Federal rules restrict any use of the information to criminally investigate or prosecute any alcohol or drug abuse patient.[facility] HospitalIn the event this information is protected by the Federal Confidentiality of Alcohol and Drug Abuse Patient Records regulations: The Federal rules restrict any use of the information to criminally investigate or prosecute any alcohol or drug abuse patient.[facility] HospitalIn the event this information is protected by the Federal Confidentiality of Alcohol and Drug Abuse Patient Records regulations: The Federal rules restrict any use of the information to criminally investigate or prosecute any alcohol or drug abuse patient.[facility] HospitalIn the event this information is protected by the Federal Confidentiality of Alcohol and Drug Abuse Patient Records regulations: The Federal rules restrict any use of the information to criminally investigate or prosecute any alcohol or drug abuse patient.[facility] Care Teams (unrecognized sec tion and content) Warehouse Operator Relationship Specialty Start Date End Date Fe Tolentino MD [address] [place] [address] PCP - General Internal Medicine 11/26/12 Warehouse Operator Relationship Specialty Start Date End Date Fe Tolentino MD [address] [place] [address] PCP - General Internal Medicine 11/26/12 Warehouse Operator Relationship Specialty Start Date End Date Fe Tolentino MD [address] [place] [address] PCP - General Internal Medicine 11/26/12 Warehouse Operator Relationship Specialty Start Date End Date Fe Tolentino MD [address] [place] [address] PCP - General Internal Medicine 11/26/12 Warehouse Operator Relationship Specialty Start Date End Date Fe Tolentino MD [address] [place] [address] PCP - General Internal Medicine 6/5/13 Team Status: Active Member Role Status Dates Dr. Fe Tolentino MD Family Provider Active Dr. Fe Tolentino MD Primary Care Provider Active Team Status: Inactive Member Role Status Dates Dr. Fe Tolentino MD Primary Care Provider, Referr ing Provider Active Chapis Nash PRACTICE ARCHITECT, PRACTICE ARCHITECT-C Attending Provider Active Team Status: Inactive Member Role Status Dates Dr. Fe Tolentino MD Primary Care Provider, Referr ing Provider Active Dr. Korin Mckeon MD Attending Provider Active Team Status: Active Member Role Status Dates Dr. Fe Tolentino MD Primary Care Provider Active Dr. Ace Gardiner MD Attending Provider Active Dr. Korin Mckeon MD Referring Provider Active Team Status: Inactive Member Role Status Dates Dr. Fe Tolentino MD Primary Care Provider Active Chapis Nash PRACTICE ARCHITECT, PRACTICE ARCHITECT-C Attending Provider Active Team Status: Inactive Member Role Status Dates Dr. Fe Tolentino MD Primary Care Provider Active Dr. Korin Mckeon MD Attending Provider, Referr ing Provider Active Team Status: Active Member Role Status Dates Dr. Fe Tolentino MD Primary Care Provider Active Dr. Korin Mckeon MD Attending Provider Active Team Status: Inactive Member Role Status Dates Dr. Fe Tolentino MD Primary Care Provider Active Dr. Harvey Andrew MD Attending Provider, Referring Provi vicente Active Team Status: Inactive Member Role Status Dates Dr. Fe Tolentino MD Primary Care Provider, Referr ing Provider Active Dr. Harvey Andrew MD Attending Provider Active Team Status: Inactive Member Role Status Dates Dr. Fe Tolentino MD Primary Care Provider, Referr ing Provider Active Dr. Eliana Arrieta DO Attending Provider Activ e Team Status: Inactive Member Role Status Dates Dr. Fe Tolentino MD Primary Care Provider Active Dr. Korin Mckeon MD Attending Provider Active Warehouse Operator Relationship Specialty Start Date End Date Fe Tolentino MD [address] [place] [address] PCP - General Internal Medicine 11/26/12 Warehouse Operator Relationship Specialty Start Date End Date Fe Tolentino MD [address] [place] [address] PCP - General Internal Medicine 11/26/12 Warehouse Operator Relationship Specialty Start Date End Date Fe Tolentino MD [address] [place] [address] PCP - General Internal Medicine 11/26/12 Warehouse Operator Relationship Specialty Start Date End Date Fe Tolentino MD [address] [place] [address] PCP - General Internal Medicine 11/26/12 Warehouse Operator Relationship Specialty Start Date End Date Fe Tolentino MD [address] [place] [address] PCP - General Internal Medicine 11/26/12 Warehouse Operator Relationship Specialty Start Date End Date Fe Tolentino MD [address] [place] [address] PCP - General Internal Medicine 11/26/12 Warehouse Operator Relationship Specialty Start Date End Date Fe Tolentino MD [address] [place] [address] PCP - General Internal Medicine 11/26/12 Maki Ramirez, RESPIRATORY EQUIPMENT ASSISTANT.POWER HAIR CLIPPER [address] [place] [address] Bass [employer] Winder Internal Medicine 06/01/24 Sharita Rose, RESPIRATORY EQUIPMENT ASSISTANT.SUGAR PRESSER [address] [place] [address] [employer] Internal Medicine 06/01/24 Warehouse Operator Relationship Specialty Start Date End Date Fe Tolentino MD [address] [place] [address] PCP - General Internal Medicine 11/26/12 Maki Ramirez, RESPIRATORY EQUIPMENT ASSISTANT.POWER HAIR CLIPPER [address] [place] [address] [employer] Winder Internal Medicine 06/01/24 Sharita Rose RESPIRATORY EQUIPMENT ASSISTANT.SUGAR PRESSER [address] [place] [address] Bass [employer] Winder Internal Medicine 06/01/24 Warehouse Operator Relationship Specialty Start Date End Date Fe Tolentino MD [address] [place] [address] PCP - General Internal Medicine 11/26/12 Maki Ramirez, RESPIRATORY EQUIPMENT ASSISTANT.POWER HAIR CLIPPER [address] [place] [address] Bass String Winder Internal Medicine 06/01/24 Sharita Rose APRN.SUGAR PRESSER [address] [place] [address] Bass String Winder Internal Medicine 06/01/24 Warehouse Operator Relationship Specialty Start Date End Date Fe Tolentino MD [address] [place] [address] PCP - General Internal Medicine 11/26/12 Maki Ramirez, RESPIRATORY EQUIPMENT ASSISTANT.POWER HAIR CLIPPER [address] [place] [address] Bass String Winder Internal Medicine 06/01/24 Sharita Rose RESPIRATORY EQUIPMENT ASSISTANT.SUGAR PRESSER [address] [place] [address] Bass String Winder Internal Medicine 09/15/24 Warehouse Operator Relationship Specialty Start Date End Date Fe Tolentino MD [address] [place] [address] PCP - General Internal Medicine 11/26/12 Maki Ramirez, RESPIRATORY EQUIPMENT ASSISTANT.POWER HAIR CLIPPER [address] [place] [address] Bass [employer] Winder Internal Medicine 06/01/24 Sharita Rose RESPIRATORY EQUIPMENT ASSISTANT.SUGAR PRESSER [address] [place] [address] Bass String Winder Internal Medicine 06/01/24 09/11/24 Sharita Rose RESPIRATORY EQUIPMENT ASSISTANT.SUGAR PRESSER [address] [place] [address] Bass String Winder Internal Medicine 09/15/24 Warehouse Operator Relationship Specialty Start Date End Date Fe Tolentino MD [address] [place] [address] PCP - General Internal Medicine 11/26/12 Maki Ramirez, RESPIRATORY EQUIPMENT ASSISTANT.POWER HAIR CLIPPER [address] [place] [address] Bass String Winder Internal Medicine 06/01/24 Sharita Rose RESPIRATORY EQUIPMENT ASSISTANT.SUGAR PRESSER [address] [place] [address] [facility] Internal Medicine 09/15/24 Warehouse Operator Relationship Specialty Start Date End Date Fe Tolentino MD [address] [place] [address] PCP - General Internal Medicine 11/26/12 Sharita Rose RESPIRATORY EQUIPMENT ASSISTANT.SUGAR PRESSER [address] [place] [address] Bass String Winder Internal Medicine 09/15/24 Maki Ramirez, RESPIRATORY EQUIPMENT ASSISTANT.POWER HAIR CLIPPER [address] [place] [address] Bass String Winder Internal Medicine 11/11/24 Warehouse Operator Relationship Specialty Start Date End Date Fe Tolentino MD [address] [place] [address] PCP - General Internal Medicine 11/26/12 Sharita Rose RESPIRATORY EQUIPMENT ASSISTANT.SUGAR PRESSER [address] [place] [address] Bass String Winder Internal Medicine 09/15/24 Maki Ramirez, RESPIRATORY EQUIPMENT ASSISTANT.POWER HAIR CLIPPER [address] [place] [address] Bass String Winder Internal Medicine 11/11/24 Warehouse Operator Relationship Specialty Start Date End Date Fe Tolentino MD [address] [place] [address] PCP - General Internal Medicine 11/26/12 Sharita Rose RESPIRATORY EQUIPMENT ASSISTANT.SUGAR PRESSER [address] [place] [address] [employer] W[employer] Internal Medicine 09/15/24 Maki Ramirez, RESPIRATORY EQUIPMENT ASSISTANT.POWER HAIR CLIPPER [address] [place] [address] Bass String Winder Internal Medicine 11/11/24 Warehouse Operator Relationship Specialty Start Date End Date Fe Tolentino MD [address] [place] [address] PCP - General Internal Medicine 11/26/12 Sharita Rose RESPIRATORY EQUIPMENT ASSISTANT.SUGAR PRESSER [address] [place] [address] Bass String Winder Internal Medicine 09/15/24 Maki Ramirez, RESPIRATORY EQUIPMENT ASSISTANT.POWER HAIR CLIPPER [address] [place] [address] Bass String Winder Internal Medicine 11/11/24 Warehouse Operator Relationship Specialty Start Date End Date Fe Tolentino MD [address] [place] [address] PCP - General Internal Medicine 11/26/12 Sharita Rose RESPIRATORY EQUIPMENT ASSISTANT.SUGAR PRESSER [address] [place] [address] Bass [employer] Winder Internal Medicine 09/15/24 Maki Ramirez, RESPIRATORY EQUIPMENT ASSISTANT.POWER HAIR CLIPPER [address] [place] [address] Bass String Winder Internal Medicine 11/11/24 Warehouse Operator Relationship Specialty Start Date End Date Fe Tolentino MD [address] [place] [address] PCP - General Internal Medicine 11/26/12 Sharita Rose RESPIRATORY EQUIPMENT ASSISTANT.SUGAR PRESSER [address] [place] [address] Bass [employer] Winder Internal Medicine 09/15/24 Maki Ramirez, RESPIRATORY EQUIPMENT ASSISTANT.POWER HAIR CLIPPER [address] [place] [address] Bass String Winder Internal Medicine 11/11/24 Reason for Visit (unrecogniz ed section and content) Reason Comments Physical Specialty Diagnoses / Procedures Referred By Contac t Referred To Contact INTERNAL MEDICINE Diagnoses annual physical Procedures annual physical Self [facility] [address] [place] [address] Referral ID Status Reason Start Date Expiration Date V isits Requested Visits Authorized [id number] Authorized 06/24/2023 03/23/2025 99 99 Reason Comments Insurance Physical Specialty Diagnoses / Procedures Referred By Contac t Referred To Contact Internal Medicine / INTERNAL MEDICINE Diagnoses ANNUAL PHYSICAL Procedures EST PATIENT VISIT LEVEL 5 EST PHYSICAL Self, Maki Nicole, EDWARD.POWER HAIR CLIPPER [address] [place] [address] Referral ID Status Reason Start Date Expiration Date V isits Requested Visits Authorized [id number] Authorized 04/07/2021 04/07/2022 99 99 Reason Comments New Patient Specialty Diagnoses / Procedures Referred By Contac t Referred To Contact Vascular Medicine / INTERNAL MEDICINE Diagnoses Spider veins of both lower extremities Procedures CONSULT TO VASCULAR MEDICINE OFFICE/OUTPATIENT NEW HIGH MDM 60-74 MINUTES OFFICE/OUTPATIENT NEW MODERATE MDM 45-59 MINUTES Maki Ramirez, RESPIRATORY EQUIPMENT ASSISTANT.POWER HAIR CLIPPER [address] [place] [address] [facility] [address] [place] [address] Referral ID Status Reason Start Date Expiration Date V isits Requested Visits Authorized [id number] Closed PCP Requested Referral 04/17/2022 06/23/2022 1 1 Reason Comments Mass Bump on right foot p inky toe x 1 week Reason Comments New Pain Callous Specialty Diagnoses / Procedures Referred By Contac t Referred To Contact Podiatry / PODIATRY Diagnoses Open wound of toe, initial encounter Procedures CONSULT TO PODIATRY OFFICE/OUTPATIENT NEW HIGH MDM 60 MINUTES Ivette Castillo, RESPIRATORY EQUIPMENT ASSISTANT.SUGAR PRESSER [address] [place] [address] [facility] [address] [place] [address] Referral ID Status Reason Start Date Expiration Date V isits Requested Visits Authorized [id number] Closed PCP Requested Referral OON/Self Pay Override 08/03/2023 08/02/2024 1 1 Reason Comments Established Patient Follow Up Pain Callous Specialty Diagnoses / Procedures Referred By Contac t Referred To Contact INTERNAL MEDICINE Diagnoses annual physical Procedures annual physical Self [facility] [address] [place] [address] Phone: tel: fax: Reason Comments Schedule Surgery Reason Comments Follow Up Discuss surgical opt ions right 5th toe Specialty Diagnoses / Procedures Referred By Contac t Referred To Contact INTERNAL MEDICINE Diagnoses annual physical Procedures annual physical Self [facility] [address] [place] [address] Phone: tel: fax: Reason Comments Patient Update Reason Comments Established Patient Follow Up Post Op Swelling Pain Reason Comments Established Patient Follow Up Post Op Pain Reason Comments Established Patient Follow Up Pain Post Op Reason Comments Established Patient Follow Up Post Op Goals (unrecognized section and content) Goals may be documented in a n alternate sectionGoals may be documented in an alternate sectionGoals may be documented in an alternate sectionGoals may be documented in an alternate sectionGoals may be documented in an alternate section FOR RECORDS PERTAINING TO PATIENTS WHO ARE OR HAVE BEEN ENROLLED IN A CHEMICAL DEPENDENCY/SUBSTANCEABUSE PROGRAM, SOME INFORMATION MAY BE OMITTED. This clinical summary was aggregated from multiple sources. Caution should be exercised in using it in the provision of clinical care. This summary normalizes information from multiple sources, and as a consequence, information in this document may materially change the coding, format and clinical context of patient data. In addition, data may be omitted in some cases. CLINICAL DECISIONS SHOULD BE BASED ON THE PRIMARY CLINICAL RECORDS. [employer] [facility]. provides no warranty or guarantee of the accuracy or completeness of information in this document.
== END | disposition home or self-care (01) ==
PROVIDERS: PCP Internal Medicine; Referring Provider Internal Medicine Endocrinology, Diabetes & Metabolism; Visit Provider Internal Medicine Endocrinology, Diabetes & Metabolism
DX: E10.65 Type 1 diabetes mellitus with hyperglycemia (principal); E10.69 Type 1 diabetes mellitus with other specified complication; I10 Essential (primary) hypertension; E78.5 Hyperlipidemia, unspecified
CPT/HCPCS: 36415; 80053; 80061; 82043; 82570; 84443

== ENCOUNTER → 2025-04-28 | Outpatient (CLI) | payer OTHER, SELFPAY | END | disposition home or self-care (01) | LOC: LABSPEC 16:33 | PROVIDERS: PCP Internal Medicine; Visit Provider Obstetrics & Gynecology | DX: Z12.4 Encounter for screening for malignant neoplasm of cervix (principal) | CPT/HCPCS: 87624; 88175; G0145 ==